=== PATIENT | male | born 1945 | race Caucasian/White ===

== ENCOUNTER 2019-06-23 15:38 | Inpatient (IN) | payer MEDICARE, BC ==
[2019-06-23] MEDS ORDERED: SODIUM CHLORIDE 0.9% 1,000 ML IV STA (15:51)
[2019-06-23] MEDS ORDERED: VANCOMYCIN 1,500 MG in SODIUM CHLORIDE 0.9% 250 ML IVPB STA (16:02)
[2019-06-23] MEDS ORDERED: CEFEPIME 1 GM in SODIUM CHLORIDE 0.9% 50 ML IVPB STA (16:02)
[2019-06-23] MEDS ORDERED: ACETAMINOPHEN TAB 500 MG TAB PO STA (16:02)
--- NOTE | 2019-06-23 16:13 | ED ---
Weakness HPI - General Chief complaint: Weakness Stated complaint: hard time staying awake Time Seen by Provider: 06/23/19 15:51 Source: patient, family Mode of arrival: wheelchair Limitations: no limitations - History of Present Illness Initial comments: Patient presents with generalized weakness. He has a fever and is tachycardic. He has no focal weakness. He has no nausea or vomiting. He feels a little lightheaded and has some generalized malaise. He denies any belly or back pain. He has swelling in the left leg. There is a complaint of redness to the leg as well. He feels warm to him. He has no vision or hearing changes. He has no he adache. He has no neck pain or stiffness. His symptoms have gone worse for couple days. Nothing makes the symptoms better or worse. - Related Data Allergies Allergy/AdvReac Type Severity Reaction Status Date / Time No Known Allergies Allergy Verified 06/23/19 17:07 Review of Systems ROS Statement: Those systems with pertinent positive or pertinent negative responses have been documented in the HPI. ROS Other: All systems not noted in ROS Statement are negative. Past Medical History Past Medical History: Heart Failure History of Any Multi-Drug Resistant Organisms: None Reported Past Surgical History: Heart Catheterization Additional Past Surgical History / Comment(s): heart transplant Past Psychological History: No Psychological Hx Reported Smoking Status: Never smoker Past Alcohol Use History: None Reported Past Drug Use History: None Reported General Exam Limitations: no limitations General appearance: alert, in no apparent distress Head exam: Present: atraumatic, normocephalic, normal inspection Eye exam: Present: normal appearance, PERRL, EOMI. Absent: scleral icterus, conjunctival injection, periorbital swelling ENT exam: Present: normal exam, mucous membranes moist Neck exam: Present: normal inspection. Absent: tenderness, meningismus, lymphadenopathy Respiratory exam: Present: normal lung sounds bilaterally. Absent: respiratory distress, wheezes, rales, rhonchi, stridor Cardiovascular Exam: Present: regular rate, normal rhythm, normal heart sounds. Absent: systolic murmur, diastolic murmur, rubs, gallop, clicks GI/Abdominal exam: Present: soft, normal bowel sounds. Absent: distended, ten derness, guarding, rebound, rigid Extremities exam: Present: normal inspection, full ROM, tenderness, normal capillary refill, other (Right calf swelling and pain). Absent: pedal edema, joint swelling, calf tenderness Back exam: Present: normal inspection Neurological exam: Present: alert, oriented X3, CN II-XII intact Psychiatric exam: Present: normal affect, normal mood Skin exam: Present: warm, dry, intact, normal color, other (There is erythema of the left leg). 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 Representative ] Respiratory 13 10 L Rate Blood Pressure 119/74 122/72 O2 Sat by Pulse Oximetry 06/23/19 06/23/19 06/23/19 17:30 17:40 17:48 Temperature 102.7 F H Pulse Rate 112 H 112 H Pulse Rate [ [employer]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 Medical Decision Making - Medical Decision Making Patient presents with weakness. He has fever and tachycardia. He does have some erythema on the left leg which could be a cellulitis. He has no other source of bacteremia, but given that he is on antirejection medication he has a high risk of bacteremia. I ordered broad-spectrum antibiotics. Patient will be admitted to the hospital. - Lab Data Result diagrams: 06/23/19 16:02 06/23/19 16:02 Lab Results 06/23/19 06/23/19 06/23/19 Range/Units 16:02 16:02 16:02 WBC 9.4 (3.8-10.6) k/uL RBC 3.72 L (4.30-5.90) m/uL Hgb 12.5 L (13.0-17.5) gm/dL Hct 35.9 L (39.0-53.0) % MCV 96.6 (80.0-100.0) fL MCH 33.6 (25.0-35.0) pg MCHC 34.8 (31.0-37.0) g/dL RDW 14.5 (11.5-15.5) % Plt Count 81 L (150-450) k/uL Neutrophils % 81 % Lymphocytes % 14 % Monocytes % 4 % Eosinophils % 1 % Basophils % 0 % Neutrophils # 7.6 (1.3-7.7) k/uL Lymphocytes # 1.3 (1.0-4.8) k/uL Monocytes # 0.3 (0-1.0) k/uL Eosinophils # 0.1 (0-0.7) k/uL Basophils # 0.0 (0-0.2) k/uL Manual Slide Review Performed RBC Morphology Normal PT (9.0-12.0) sec INR (<1.2) APTT (22.0-30.0) sec Sodium 139 (137-145) mmol/L Potassium 3.8 (3.5-5.1) mmol/L Chloride 104 (98-107) mmol/L Carbon Dioxide 26 (22-30) mmol/L Anion Gap 9 mmol/L BUN 38 H (9-20) mg/dL Creatinine 1.18 (0.66-1.25) mg/dL Est GFR (CKD-EPI)AfAm 71 (>60 ml/min/1.73 sqM) Est GFR (CKD-EPI)NonAf 61 (>60 ml/min/1.73 sqM) Glucose 105 H (74-99) mg/dL Plasma Lactic Acid Jonh 1.7 (0.7-2.0) mmol/L Calcium 9.2 (8.4-10.2) mg/dL Magnesium 1.5 L (1.6-2.3) mg/dL Total Bilirubin 1.5 H (0.2-1.3) mg/dL AST 26 (17-59) U/L ALT 23 (21-72) U/L Alkaline Phosphatase 69 (38-126) U/L Troponin I (0.000-0.034) ng/mL NT-Pro-B Natriuret Pep pg/mL Total Protein 6.4 (6.3-8.2) g/dL Albumin 3.7 (3.5-5.0) g/dL Urine Color Urine Appearance (Clear) Urine pH (5.0-8.0) Ur Specific [place] (1.001-1.035) Urine Protein (Negative) Urine Glucose (UA) (Negative) Urine Ketones (Negative) Urine Blood (Negative) Urine Nitrite (Negative) Urine Bilirubin (Negative) Urine Urobilinogen (<2.0) mg/dL Ur Leukocyte Esterase (Negative) 06/23/19 06/23/19 06/23/19 Range/Units 16:02 16:02 16:02 WBC (3.8-10.6) k/uL RBC (4.30-5.90) m/uL Hgb (13.0-17.5) gm/dL Hct (39.0-53.0) % MCV (80.0-100.0) fL MCH (25.0-35.0) pg MCHC (31.0-37.0) g/dL RDW (11.5-15.5) % Plt Count (150-450) k/uL Neutrophils % % Lymphocytes % % Monocytes % % Eosinophils % % Basophils % % Neutrophils # (1.3-7.7) k/uL Lymphocytes # (1.0-4.8) k/uL Monocytes # (0-1.0) k/uL Eosinophils # (0-0.7) k/uL Basophils # (0-0.2) k/uL Manual Slide Review RBC Morphology PT 10.8 (9.0-12.0) sec INR 1.0 (<1.2) APTT 23.8 (22.0-30.0) sec Sodium (137-145) mmol/L Potassium (3.5-5.1) mmol/L Chloride (98-107) mmol/L Carbon Dioxide (22-30) mmol/L Anion Gap mmol/L BUN (9-20) mg/dL Creatinine (0.66-1.25) mg/dL Est GFR (CKD-EPI)AfAm (>60 ml/min/1.73 sqM) Est GFR (CKD-EPI)NonAf (>60 ml/min/1.73 sqM) Glucose (74-99) mg/dL Plasma Lactic Acid Jonh (0.7-2.0) mmol/L Calcium (8.4-10.2) mg/dL Magnesium (1.6-2.3) mg/dL Total Bilirubin (0.2-1.3) mg/dL AST (17-59) U/L ALT (21-72) U/L Alkaline Phosphatase (38-126) U/L Troponin I <0.012 (0.000-0.034) ng/mL NT-Pro-B Natriuret Pep 1130 pg/mL Total Protein (6.3-8.2) g/dL Albumin (3.5-5.0) g/dL Urine Color Urine Appearance (Clear) Urine pH (5.0-8.0) Ur Specific [place] (1.001-1.035) Urine Protein (Negative) Urine Glucose (UA) (Negative) Urine Ketones (Negative) Urine Blood (Negative) Urine Nitrite (Negative) Urine Bilirubin (Negative) Urine Urobilinogen (<2.0) mg/dL Ur Leukocyte Esterase (Negative) 06/23/19 Range/Units 17:10 WBC (3.8-10.6) k/uL RBC (4.30-5.90) m/uL Hgb (13.0-17.5) gm/dL Hct (39.0-53.0) % MCV (80.0-100.0) fL MCH (25.0-35.0) pg MCHC (31.0-37.0) g/dL RDW (11.5-15.5) % Plt Count (150-450) k/uL Neutrophils % % Lymphocytes % % Monocytes % % Eosinophils % % Basophils % % Neutrophils # (1.3-7.7) k/uL Lymphocytes # (1.0-4.8) k/uL Monocytes # (0-1.0) k/uL Eosinophils # (0-0.7) k/uL Basophils # (0-0.2) k/uL Manual Slide Review RBC Morphology PT (9.0-12.0) sec INR (<1.2) APTT (22.0-30.0) sec Sodium (137-145) mmol/L Potassium (3.5-5.1) mmol/L Chloride (98-107) mmol/L Carbon Dioxide (22-30) mmol/L Anion Gap mmol/L BUN (9-20) mg/dL Creatinine (0.66-1.25) mg/dL Est GFR (CKD-EPI)AfAm (>60 ml/min/1.73 sqM) Est GFR (CKD-EPI)NonAf (>60 ml/min/1.73 sqM) Glucose (74-99) mg/dL Plasma Lactic Acid Jonh (0.7-2.0) mmol/L Calcium (8.4-10.2) mg/dL Magnesium (1.6-2.3) mg/dL Total Bilirubin (0.2-1.3) mg/dL AST (17-59) U/L ALT (21-72) U/L Alkaline Phosphatase (38-126) U/L Troponin I (0.000-0.034) ng/mL NT-Pro-B Natriuret Pep pg/mL Total Protein (6.3-8.2) g/dL Albumin (3.5-5.0) g/dL Urine Color Yellow Urine Appearance Clear (Clear) Urine pH 8.5 H (5.0-8.0) Ur Specific [place] 1.013 (1.001-1.035) Urine Protein Negative (Negative) Urine Glucose (UA) Negative (Negative) Urine Ketones Negative (Negative) Urine Blood Negative (Negative) Urine Nitrite Negative (Negative) Urine Bilirubin Negative (Negative) Urine Urobilinogen <2.0 (<2.0) mg/dL Ur Leukocyte Esterase Negative (Negative) Disposition Clinical Impression: Bacteremia Disposition: ADMITTED IP TO THIS [facility] Condition: Serious Is patient prescribed a controlled substance at d/c from ED?: No Referrals: None,Stated [Primary Care Provider] - 1-2 days
[2019-06-23 16:26] LABS: Basophils % (A) 0 %; Eosinophils # (A) 0.1 k/uL (0-0.7); Eosinophils % (A) 1 %; HCT 35.9 % (39.0-53.0); HGB 12.5 gm/dL (13.0-17.5); Lymphocytes # (A) 1.3 k/uL (1.0-4.8); Lymphocytes % (A) 14 %; MCH 33.6 pg (25.0-35.0); MCHC 34.8 g/dL (31.0-37.0); MCV 96.6 fL (80.0-100.0); Mean Platelet Volume 7.6; Monocytes # (A) 0.3 k/uL (0-1.0); Monocytes % (A) 4 %; Neutrophils # (A) 7.6 k/uL (1.3-7.7); Neutrophils % (A) 81 %; RBC 3.72 m/uL (4.30-5.90); RDW 14.5 % (11.5-15.5); WBC 9.4 k/uL (3.8-10.6)
[2019-06-23 16:33] LABS: Albumin 3.7 g/dL (3.5-5.0); Calcium 9.2 mg/dL (8.4-10.2); Magnesium 1.5 mg/dL (1.6-2.3); Potassium 3.8 mmol/L (3.5-5.1); Total Bilirubin 1.5 mg/dL (0.2-1.3); Total Protein 6.4 g/dL (6.3-8.2)
[2019-06-23 16:42] LABS: Partial Thromboplastin Time 23.8 sec (22.0-30.0); Prothrombin Time 10.8 sec (9.0-12.0)
[2019-06-23 16:50] LABS: Platelet Count 81 k/uL (150-450)
--- NOTE | 2019-06-23 17:15 | US ---
EXAMINATION TYPE: US venous doppler duplex LE LT DATE OF EXAM: 06/23/2019 5:06 PM COMPARISON: NONE CLINICAL HISTORY: Pain. Left leg pain and redness SIDE PERFORMED: Left TECHNIQUE: The lower extremity deep venous system is examined utilizing real time linear array sonog viri with graded compression, doppler sonography and color-flow sonography. VESSELS IMAGED: External Iliac Vein (EIV) Common Femoral Vein Deep Femoral Vein Greater Saphenous Vein * Femoral Vein Popliteal Vein Small Saphenous Vein * Proximal Calf Veins (* superficial vessels) Left Leg: Positive for DVT within left popliteal vein IMPRESSION: No evidence of deep venous thrombosis in the left leg.
[2019-06-23 17:20] LABS: Appearance,Urine Clear (Clear); Bilirubin,Urine Negative (Negative); Blood,Urine Negative (Negative); Color,Urine Yellow; Glucose,Urine (UA) Negative (Negative); Ketones,Urine Negative (Negative); Leukocyte Esterase,Urine Negative (Negative); Nitrite,Urine Negative (Negative); PH, Urine 8.5 (5.0-8.0); Protein,Urine Negative (Negative); Specific Gravity,Urine 1.013 (1.001-1.035); Urobilinogen,Urine <2.0 mg/dL (<2.0)
--- NOTE | 2019-06-23 18:12 | CT ---
EXAMINATION TYPE: CT brain wo con DATE OF EXAM: 06/23/2019 COMPARISON: None HISTORY: Generalized pain and weakness, difficulty staying awake. CT DLP: 1099.4 mGycm Automated exposure control for dose reduction was used. FINDINGS: Ventricles and sulci appear normal. There is no mass effect nor midline shift. There is no sign of in tracranial hemorrhage. The calvarium is intact. IMPRESSION: HEAD CT SCAN APPEARS NORMAL FOR AGE.
--- NOTE | 2019-06-23 18:16 | XR ---
EXAMINATION TYPE: XR chest 2V DATE OF EXAM: 06/23/2019 COMPARISON: NONE HISTORY: Weakness TECHNIQUE: Frontal and lateral views of the chest are obtained. FINDINGS: There is some mild atelectasis left lung base with slight elevated diaphragm. There is no heart failure. There are no hilar masses. There are sternal wires. There are chest leads. There is no definite pleural effusion. IMPRESSION: Minimal atelectasis left lung base. No heart failure. No pulmonary consolidation.
[2019-06-23] MEDS ORDERED: SODIUM CHLORIDE 0.9% 1,000 ML IV ONE (18:44)
[2019-06-23] MEDS ORDERED: NALOXONE 0.4 MG/ML 1 ML VIAL IV PRN (19:05)
[2019-06-23] MEDS ORDERED: ONDANSETRON 4 MG/2 ML VIAL IVP PRN (19:05)
[2019-06-23] MEDS ORDERED: MAG HYDROX/AL HYDROX/SIMETH 30 ML CUP PO PRN (19:05)
[2019-06-23] MEDS ORDERED: DOCUSATE 100 MG CAP PO PRN (19:05)
[2019-06-23] MEDS ORDERED: TEMAZEPAM 15 MG CAP PO PRN (19:05)
[2019-06-23] MEDS ORDERED: SODIUM CHLORIDE 0.9% 500 ML 500 ML IV ONE (19:37)
[2019-06-23] MEDS ORDERED: TRIAMCINOLONE ACET 0.1% OINTMENT 15 GM TUBE TOPICAL PRN (20:50)
[2019-06-23] MEDS ORDERED: Potassium Replacement Protocol 1 EACH MISC MISCELLANE PRN (20:54)
[2019-06-23] MEDS ORDERED: Magnesium Replacement Protocol 1 EACH MISC MISCELLANE PRN (20:54)
[2019-06-23] MEDS ORDERED: TACROLIMUS 1 MG CAP PO SCH (21:00)
[2019-06-23] MEDS ORDERED: PRAVASTATIN SODIUM 20 MG TAB PO SCH (21:00)
[2019-06-23 22:03] VITALS: BMI 25.7
[2019-06-23] MEDS: VITAMIN E (DL,TOCOPHERYL ACET) 400 UNIT CAP PO SCH (22:17)
[2019-06-23] MEDS: ASCORBIC ACID 500 MG TAB PO SCH (22:17)
[2019-06-23] MEDS: CALCIUM CARB-VIT D 500MG-200UN 1 EACH TAB PO SCH (22:18)
[2019-06-23] MEDS: FAMOTIDINE 20 MG TAB PO SCH (22:18)
[2019-06-23] MEDS: CARVEDILOL 3.125 MG TAB PO SCH (22:19)
[2019-06-23] MEDS: FLUOROURACIL TOPICAL SCH (22:19)
[2019-06-24] MEDS ORDERED: ACETAMINOPHEN TAB 325 MG TAB PO PRN (00:07)
[2019-06-24] MEDS: MAGNESIUM SULFATE-D5W PMX 1 GM in DEXTROSE/WATER 1 100ML.BAG IVPB SCH ×2 (02:11→03:19)
[2019-06-24 04:39] LABS: Magnesium 2.3 mg/dL (1.6-2.3)
[2019-06-24] MEDS ORDERED: VANCOMYCIN 1,500 MG in SODIUM CHLORIDE 0.9% 250 ML IVPB SCH ×2 (06:00→10:00)
[2019-06-24] MEDS: CARVEDILOL 3.125 MG TAB PO SCH ×2 (06:58→16:14)
[2019-06-24] MEDS ORDERED: PANTOPRAZOLE 40 MG TABLET PO SCH (07:30)
[2019-06-24] MEDS: ASCORBIC ACID 500 MG TAB PO SCH (08:30)
[2019-06-24] MEDS: CALCIUM CARB-VIT D 500MG-200UN 1 EACH TAB PO SCH ×2 (08:30→12:06)
[2019-06-24] MEDS: FAMOTIDINE 20 MG TAB PO SCH (08:30)
[2019-06-24] MEDS: VITAMIN E (DL,TOCOPHERYL ACET) 400 UNIT CAP PO SCH (08:30)
[2019-06-24] MEDS: FLUOROURACIL TOPICAL SCH (08:31)
[2019-06-24 08:43] VITALS: RESP 20
[2019-06-24] MEDS ORDERED: MULTIVITAMINS, THERA 1 EACH TAB PO SCH (09:00)
[2019-06-24] MEDS ORDERED: ASPIRIN 81 MG PO SCH (09:00)
[2019-06-24] MEDS ORDERED: MAGNESIUM OXIDE 400 MG TAB PO SCH (09:00)
[2019-06-24] MEDS ORDERED: FUROSEMIDE 80 MG TAB PO SCH (09:00)
[2019-06-24] MEDS ORDERED: predniSONE 5 MG TAB PO SCH (09:00)
[2019-06-24] MEDS ORDERED: TACROLIMUS 1 MG CAP PO SCH (09:00)
[2019-06-24] MEDS ORDERED: HEPARIN SODIUM,PORCINE 5,000 UNIT/ML 1 ML VIAL IV PRN (10:39)
[2019-06-24] MEDS ORDERED: HEPARIN SODIUM,PORCINE 10,000 UNIT/ML 1 ML VIAL IV ONE (10:39)
[2019-06-24] MEDS ORDERED: HEPARIN SOD,PORK IN 0.45% NACL 25,000 UNIT in 0.45% NACL 1 250ML.BAG IV SCH (10:45)
[2019-06-24 11:29] LABS: Basophils % (A) 0 %; Eosinophils # (A) 0.1 k/uL (0-0.7); Eosinophils % (A) 1 %; HCT 34.7 % (39.0-53.0); HGB 11.9 gm/dL (13.0-17.5); Lymphocytes # (A) 0.9 k/uL (1.0-4.8); Lymphocytes % (A) 9 %; MCH 34.1 pg (25.0-35.0); MCHC 34.3 g/dL (31.0-37.0); MCV 99.3 fL (80.0-100.0); Mean Platelet Volume 7.4; Monocytes # (A) 0.4 k/uL (0-1.0); Monocytes % (A) 4 %; Neutrophils # (A) 8.4 k/uL (1.3-7.7); Neutrophils % (A) 85 %; RBC 3.49 m/uL (4.30-5.90); RDW 14.3 % (11.5-15.5); WBC 9.8 k/uL (3.8-10.6)
[2019-06-24 11:36] LABS: INR 1.2 (<1.2); Partial Thromboplastin Time 30.6 sec (22.0-30.0); Prothrombin Time 12.1 sec (9.0-12.0)
[2019-06-24 11:47] LABS: Platelet Count 71 k/uL (150-450)
--- NOTE | 2019-06-24 11:55 | HP ---
HISTORY AND PHYSICAL DATE OF SERVICE: 06/24/2019 CHIEF COMPLAINT: Weakness. HISTORY OF PRESENT ILLNESS: This is a 73-year-old gentleman with a past medical history of cardiac transplantation, history of CHF, history of cardiac catheterization, being followed by primary physician. 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 Bacteremia suspected. Patient started on broad spectrum IV antibiotics. The patient also had some pain and swelling and redness of the left leg also. Ultrasound showed evidence of DVT, cellulitis also suspected. The patient apparently recently had a cardiac catheterization through a right groin units on 06/21/2019. Results are not available at this time. There is no history of any fever, chills, or rigors. No history of headaches, loss of consciousness or seizures. PAST MEDICAL HISTORY: History of cardiac arrest and cardiac transplantation, history of CHF. MEDICATIONS: Prior to admission, home medications are: 1. Prednisone 5 mg p.o. daily. 2. Vitamin E 400 units daily p.o. b.i.d. 3. Prograf 2 mg q.a.m. and 1 mg q.h.s. 4. Zantac 150 mg p.o. b.i.d. 5. Pravachol 20 mg q.h.s. 6. Omeprazole 20 mg p.o. daily. 7. Multivitamins. 8. Magnesium oxide 20 mg q.a.m. and 400 mg p.o. b.i.d. 9. Hydrocortisone 1 application daily p.r.n. 10.Lasix 80 mg p.o. daily. 11.Efudex 1 application b.i.d. 12.Coreg 3.125 mg p.o. b.i.d. 13.Calcium with vitamin D 1 p.o. t.i.d. 14.Ecotrin 81 mg p.o. daily. 15.Vitamin C 500 mg p.o. b.i.d. ALLERGIES: None. FAMILY HISTORY: History of CHF, renal disease in the family. SOCIAL HISTORY: Previous history of smoking. No history of alcohol. REVIEW OF SYSTEMS: ENT: No diminished hearing or diminished vision. CARDIOVASCULAR: As mentioned earlier. RESPIRATORY: As mentioned earlier. GI; No nausea. : No dysuria. NERVOUS SYSTEM: As mentioned earlier. ALLERGY/IMMUNOLOGY: Asthma. MUSCULOSKELETAL: As mentioned earlier. HEMATOLOGY/ONCOLOGY: No history of anemia. ENDOCRINE: As mentioned earlier. CONSTITUTIONAL: As mentioned earlier. DERMATOLOGY: Negative. PSYCHIATRY: As mentioned earlier. PHYSICAL EXAMINATION: Alert and oriented x3. Pulse is 89. Blood pressure 98/53, respiration 17, temperature 99.8, T-max 101.1, pulse ox 97% on room air. HEENT: Conjunctivae normal. Oral mucosa moist. NECK: No jugular venous distention. No lymph node enlargement. CARDIOVASCULAR SYSTEM: S1, S2, muffled. No S3, no S4. RESPIRATORY: Breath sounds diminished in the bases, no rhonchi, no crackles. ABDOMEN: Soft, nontender. No mass palpable. LEGS: Minimal edema on the left leg with some erythema tenderness and warmth also present, otherwise right groin site is no abnormal swelling present, tenderness present. NERVOUS SYSTEM: Higher functions as mentioned earlier. Moves all 4 limbs, no focal deficits. LYMPHATICS: No lymph node enlargement in the neck or axillae. JOINTS: No active deformity or arthropathy. SKIN: As mentioned earlier. LABS: WBC is 9.3, hemoglobin is 12.5, platelets are 81. Otherwise glucose 105, magnesium 1.5. Ultrasound reviewed. ASSESSMENT: 1. Fever, weakness for evaluation, rule out sepsis, possibly acute cellulitis of the right leg. 2. Acute right leg deep venous thrombosis of the popliteal vein. 3. Anemia, normocytic anemia of chronic disease. 4. Thrombocytopenia, secondary from immunosuppression. 5. Increased creatinine with mild acute renal failure. 6. History of cardiac transplantation. 7. History of recent cardiac cauterization. 8. History of congestive heart failure with ejection fraction unknown. RECOMMENDATION: In this 73-year-old gentleman who presented with multiple complex medical issues, at this time I would recommend resume the home medications, broad-spectrum IV antibiotics, Infectious Disease evaluation. Cardiology and Nephrology evaluations. Otherwise, follow the cultures. Prognosis guarded because of multiple complex medical issues, and I would also recommend the patient to follow up with the [facility], discussed with the director of casework department. We will try for transfer to [facility] because of the above mentioned multiple complex medical issues. The patient is aware. Further recommendations to follow. MMODL / IJN: [id number] /
[2019-06-24] MEDS: MAGNESIUM OXIDE 400 MG TAB PO SCH ×2 (12:06→16:14)
[2019-06-24] MEDS ORDERED: SODIUM CHLORIDE 0.9% 1,000 ML IV SCH (12:30)
--- NOTE | 2019-06-24 14:08 | US ---
EXAMINATION TYPE: US kidneys/renal and bladder DATE OF EXAM: 06/24/2019 COMPARISON: NONE CLINICAL HISTORY: renal failure. Patient stated had heart transplant 8 years ago and is taking immuno suppressant drugs EXAM MEASUREMENTS: Right Kidney: 11.7 x 5.9 x 4.7 cm Left Kidney: 11.0 x 6.0 x 5.4 cm Right Kidney: irregular appearance to renal sinus as extends to very thin cortex mid pole, and lobula r cortex noted upper pole Left Kidney: prominent column of Juancarlos Bladder: wnl Bilateral Jets seen: yes Normal Post Void Residual: not assessed on inpatient There is no evidence for hydronephrosis at this point in time. No nephrolithiasis is seen. The urina ry bladder is anechoic. Bilateral ureteral jets are seen. IMPRESSION: No hydronephrosis is evident bilaterally. Cannot exclude solid mass right kidney though f avor marked cortical thinning, consider nonurgent renal protocol contrast-enhanced CT/MRI follow-up.
--- NOTE | 2019-06-24 14:55 | CONS ---
CONSULTATION REASON FOR CONSULT: Renal failure. HISTORY OF PRESENT ILLNESS: The patient is a 73-year-old male with history of cardiac transplant in 2010 at [facility]. The patient was admitted to the hospital with complaints of pain and erythema on his left leg. He was also quite weak and sleepy prior to admission. The patient denies any history of renal failure. He is currently maintained on vancomycin for cellulitis. His creatinine was 1.18 yesterday and it is at 1.38 today. Patient states he is voiding. There were no episodes of hypotension. He denies use of any nonsteroidal anti-inflammatory agents. There are plans for possible transfer to [facility]. PAST MEDICAL HISTORY: CHF, status post cardiac transplantation 2010 at [facility], dyslipidemia, gastroesophageal reflux disease. MEDICATIONS: Prior to admission included prednisone, vitamin E program, Zantac, Pravachol, omeprazole, magnesium, Lasix, Coreg, calcium, aspirin, vitamin C. ALLERGIES: None. SOCIAL HISTORY: The patient is a former smoker. No history of drug abuse or alcohol abuse. FAMILY HISTORY: Noncontributory. REVIEW OF SYSTEMS: As per HPI. Other systems negative. PHYSICAL EXAMINATION: Patient is comfortable. Blood pressure is 117/46, heart rate 81 per minute. He is afebrile. Examination of the heart S1, S2. Examination of the lungs, bilateral breath sounds are heard. Abdomen is soft, nontender. Exam of the lower extremities shows erythema in his left lower extremity with some edema noted as well. [employer] exam is grossly intact. LABS: Show sodium 139, potassium 3.8, chloride 104, serum creatinine 1.38 today. UA is completely normal with no evidence of protein, blood, or cells. ASSESSMENT: 1. Acute kidney injury secondary to some degree of hypoperfusion and underlying infection. Patient is nonoliguric. His blood pressure was not low initially, but now I do see is systolic of 98 mmHg early this morning. The Coreg is at a very low dose. I will hold off on the Lasix and we will add gentle hydration. Chest x-ray does not show any evidence of fluid overload. We will also check a Prograf level with a.m. labs. 2. Left lower extremity deep venous thrombosis, maintained on IV heparin. 3. Left lower extremity cellulitis, maintained on antibiotics. Recommend to discontinue vancomycin. 4. History of cardiac transplant 2010 at [facility]. PLAN: Add IV fluids. Hold off on Lasix. Recommend to discontinue the vancomycin and repeat labs in a.m. Check ultrasound of the kidneys and hold Lasix. Avoid hypotension and check Prograf level in a.m. Thank you for this consultation. We will continue to follow the patient with you during his hospitalization. MMSHAHRIARL / ELSIEN: [id number] /
--- NOTE | 2019-06-24 15:32 | NM ---
EXAMINATION TYPE: NM pul perfusion DATE OF EXAM: 06/24/2019 COMPARISON: Chest x-ray from yesterday. HISTORY: Positive d-dimer with weakness, history of heart catheterization 3 days earlier Following administration of 5.38 mCi Tc 99m MAA. Images obtained post injection. FINDINGS: Patient unable to complete the ventilation images for complete assessment. Diminished radiotracer upt nirali left lung base correlates with elevated left hemidiaphragm. Small to moderate-sized areas of hete rogeneous diminished uptake posterior left mid to lower lung on LPO and left lateral images are ident ified. Without ventilation images further characterization cannot be assessed. IMPRESSION: As above. Indeterminate.
[2019-06-24 16:54] VITALS: BP 136/76; PULSE 86; TEMP 98.2
[2019-06-25] MEDS ORDERED: VANCOMYCIN TROUGH DUE 1 EACH MISC MISCELLANE ONE (21:00)
== END 2019-06-24 18:30 | disposition short-term general hospital (02) | DRG 300 ==
LOC: EC 15:38 → 3SCARD 19:05
PROVIDERS: ADMIT Internal Medicine; ATTEND Internal Medicine
DX: I82.439 Acute embolism and thrombosis of unspecified popliteal vein (principal); N17.9 Acute kidney failure, unspecified; L03.116 Cellulitis of left lower limb; Z94.1 Heart transplant status; E78.5 Hyperlipidemia, unspecified; D69.6 Thrombocytopenia, unspecified; D63.8 Anemia in other chronic diseases classified elsewhere; K21.9 Gastro-esophageal reflux disease without esophagitis; Z82.49 Family history of ischemic heart disease and other diseases of the circulatory system; Z87.891 Personal history of nicotine dependence; Z86.74 Personal history of sudden cardiac arrest
CPT/HCPCS: 36415; 70450; 71046; 76770; 78580; 80053; 80202; 81003; 82565; 83605; 83735; 83880; 84484; 85025; 85379; 85610; 85730; 87040; 93005; 96361; 96365; 99285

== ENCOUNTER 2022-03-06 16:35 | Observation (INO) | payer BC, MEDICARE ==
[2022-03-06] MEDS ORDERED: ACETAMINOPHEN TAB 500 MG TAB PO STA (17:05)
--- NOTE | 2022-03-06 17:41 | ED ---
General Adult HPI - General Chief complaint: Weakness Stated complaint: AMS,Weakness Time Seen by Provider: 03/06/22 17:05 Source: patient Mode of arrival: wheelchair Limitations: no limitations - History of Present Illness Initial comments: Garry is a 76-year-old male who is status post cardiac transplant in 2010. Patient presents the ER today reporting that he just doesn't feel well, is noted to have a fever on arrival. Patient reports she just feels generalized weakness, get out of bed today. - Related Data Home Medications Medication Instructions Recorded Confirmed Ascorbic Acid [Vitamin C] 500 mg PO BID 06/23/19 03/06/22 Aspirin EC [Ecotrin Low Dose] 81 mg PO DAILY 06/23/19 03/06/22 Furosemide [Lasix] 40 mg PO DAILY 06/23/19 03/06/22 Multivitamins, Thera [Multivitamin 1 tab PO DAILY 06/23/19 03/06/22 (formulary)] Omeprazole 20 mg PO DAILY 06/23/19 03/06/22 Pravastatin Sodium [Pravachol] 20 mg PO HS 06/23/19 03/06/22 Tacrolimus [Prograf] 1 mg PO BID 06/23/19 03/06/22 Vitamin E (Dl,Tocopheryl Acet) 400 unit PO BID 06/23/19 03/06/22 [Vitamin E] predniSONE 5 mg PO DAILY 06/23/19 03/06/22 Apixaban [Eliquis] 5 mg PO BID 03/06/22 03/06/22 Potassium Chloride [Potassium 10 meq PO DAILY 03/06/22 03/06/22 Chloride ER] carvediloL [Coreg] 6.25 mg PO BID 03/06/22 03/06/22 Allergies Allergy/AdvReac Type Severity Reaction Status Date / Time No Known Allergies Allergy Verified 03/06/22 20:00 Review of Systems ROS Statement: Those systems with pertinent positive or pertinent negative responses have been documented in the HPI. ROS Other: All systems not noted in ROS Statement are negative. Past Medical History Past Medical History: Heart Failure History of Any Multi-Drug Resistant Organisms: None Reported Past Surgical History: Heart Catheterization Additional Past Surgical History / Comment(s): heart transplant 2010. Heart Catheterization 9-6-19 [facility] Past Psychological History: No Psychological Hx Reported Smoking Status: Never smoker Past Alcohol Use History: None Reported Past Drug Use History: None Reported - Past Family History Father Family Medical History: Congestive Heart Failure (CHF), Renal Disease Mother Family Medical History: Unable to Obtain General Exam - General Exam Comments Initial Comments: Physical Exam GENERAL: Ill appearing HENT: Normocephalic, Atraumatic. EYES: PERRL, EOMI PULMONARY: Unlabored respirations. No audible rales rhonchi or wheezing was noted. CARDIOVASCULAR: There is a regular rate and rhythm without any murmurs gallops or rubs. ABDOMEN: Soft and nontender with normal bowel sounds. SKIN: Skin is clear with no lesions or rashes and otherwise unremarkable. Clammy : Deferred NEUROLOGIC: Patient is alert and oriented x3. Moving all extremities spontaneously MUSCULOSKELETAL: Normal extremities with adequate strength and full range of motion. No lower extremity swelling or edema. No calf tenderness. PSYCHIATRIC: Normal psychiatric evaluation. Limitations: no limitations Course Vital Signs 03/06/22 03/06/22 03/06/22 16:52 17:38 18:00 Temperature 100.9 F H 102.6 F H Pulse Rate 98 97 95 Respiratory 16 20 Rate Blood Pressure 118/75 126/77 126/77 O2 Sat by Pulse 96 95 Oximetry 03/06/22 03/06/22 19:00 20:00 Temperature Pulse Rate 89 82 Respiratory Rate Blood Pressure 89/62 102/53 O2 Sat by Pulse Oximetry Medical Decision Making - Medical Decision Making The patient was seen and evaluated history is obtained from patient, vital signs were reviewed patient is febrile A septic workup was initiated and resulted with no acute findings is no leukocytosis, no lactic acidosis, kidney function and baseline Chest x-ray is unremarkable Viral panel was negative Patient care was discussed with the patient's transplant air conditioning unit tester from [facility] Dr. Arvizu, who recommended the patient have CMV studie s, remain in the hospital until blood cultures are negative, if possible respiratory viral panel should be performed. He does not recommend empiric antibiotics due to risk of C. diff. The patient will need to be in the hospital until blood cultures are negative therefore warranting a 48 hour stay and will be made inpatient. Patient care was discussed with the nurse practitioner Smita from [facility] hospitalist group who accepts the admission - Lab Data Result diagrams: 03/06/22 17:13 03/06/22 17:13 Lab Results 03/06/22 03/06/2222 Range/Units 15:35 17:13 17:13 WBC 3.9 (3.8-10.6) k/uL RBC 3.38 L (4.30-5.90) m/uL Hgb 11.8 L (13.0-17.5) gm/dL Hct 33.3 L (39.0-53.0) % MCV 98.7 (80.0-100.0) fL MCH 35.0 (25.0-35.0) pg MCHC 35.5 (31.0-37.0) g/dL RDW 13.4 (11.5-15.5) % Plt Count 81 L (150-450) k/uL MPV 7.4 Neutrophils % 53 % Lymphocytes % 37 % Monocytes % 6 % Eosinophils % 2 % Basophils % 0 % Neutrophils # 2.0 (1.3-7.7) k/uL Lymphocytes # 1.4 (1.0-4.8) k/uL Monocytes # 0.3 (0-1.0) k/uL Eosinophils # 0.1 (0-0.7) k/uL Basophils # 0.0 (0-0.2) k/uL Manual Slide Review Performed PT 11.5 (9.0-12.0) sec INR 1.1 (<1.2) APTT 26.8 (22.0-30.0) sec Sodium (137-145) mmol/L Potassium (3.5-5.1) mmol/L Chloride (98-107) mmol/L Carbon Dioxide (22-30) mmol/L Anion Gap mmol/L BUN (9-20) mg/dL Creatinine (0.66-1.25) mg/dL Est GFR (CKD-EPI)AfAm (>60 ml/min/1.73 sqM) Est GFR (CKD-EPI)NonAf (>60 ml/min/1.73 sqM) Glucose (74-99) mg/dL Plasma Lactic Acid Jonh (0.7-2.0) mmol/L Calcium (8.4-10.2) mg/dL Total Bilirubin (0.2-1.3) mg/dL AST (17-59) U/L ALT (4-49) U/L Alkaline Phosphatase (38-126) U/L Troponin I (0.000-0.034) ng/mL Total Protein (6.3-8.2) g/dL Albumin (3.5-5.0) g/dL Urine Color Urine Appearance (Clear) Urine pH (5.0-8.0) Ur Specific [place] (1.001-1.035) Urine Protein (Negative) Urine Glucose (UA) (Negative) Urine Ketones (Negative) Urine Blood (Negative) Urine Nitrite (Negative) Urine Bilirubin (Negative) Urine Urobilinogen (<2.0) mg/dL Ur Leukocyte Esterase (Negative) Influenza Type A (PCR) Not Detected (Not Detectd) Influenza Type B (PCR) Not Detected (Not Detectd) RSV (PCR) Not Detected (Not Detectd) SARS-CoV-2 (PCR) Not Detected (Not Detectd) 03/06/22 03/06/22 03/06/22 Range/Units 17:13 17:13 17:13 WBC (3.8-10.6) k/uL RBC (4.30-5.90) m/uL Hgb (13.0-17.5) gm/dL Hct (39.0-53.0) % MCV (80.0-100.0) fL MCH (25.0-35.0) pg MCHC (31.0-37.0) g/dL RDW (11.5-15.5) % Plt Count (150-450) k/uL MPV Neutrophils % % Lymphocytes % % Monocytes % % Eosinophils % % Basophils % % Neutrophils # (1.3-7.7) k/uL Lymphocytes # (1.0-4.8) k/uL Monocytes # (0-1.0) k/uL Eosinophils # (0-0.7) k/uL Basophils # (0-0.2) k/uL Manual Slide Review PT (9.0-12.0) sec INR (<1.2) APTT (22.0-30.0) sec Sodium 136 L (137-145) mmol/L Potassium 4.1 (3.5-5.1) mmol/L Chloride 106 (98-107) mmol/L Carbon Dioxide 28 (22-30) mmol/L Anion Gap 2 mmol/L BUN 30 H (9-20) mg/dL Creatinine 1.24 (0.66-1.25) mg/dL Est GFR (CKD-EPI)AfAm 66 (>60 ml/min/1.73 sqM) Est GFR (CKD-EPI)NonAf 57 (>60 ml/min/1.73 sqM) Glucose 111 H (74-99) mg/dL Plasma Lactic Acid Jonh 0.8 (0.7-2.0) mmol/L Calcium 9.0 (8.4-10.2) mg/dL Total Bilirubin 0.9 (0.2-1.3) mg/dL AST 23 (17-59) U/L ALT 15 (4-49) U/L Alkaline Phosphatase 70 (38-126) U/L Troponin I (0.000-0.034) ng/mL Total Protein 6.4 (6.3-8.2) g/dL Albumin 3.8 (3.5-5.0) g/dL Urine Color Yellow Urine Appearance Clear (Clear) Urine pH 8.0 (5.0-8.0) Ur Specific [place] 1.017 (1.001-1.035) Urine Protein Negative (Negative) Urine Glucose (UA) Negative (Negative) Urine Ketones Negative (Negative) Urine Blood Negative (Negative) Urine Nitrite Negative (Negative) Urine Bilirubin Negative (Negative) Urine Urobilinogen <2.0 (<2.0) mg/dL Ur Leukocyte Esterase Negative (Negative) Influenza Type A (PCR) (Not Detectd) Influenza Type B (PCR) (Not Detectd) RSV (PCR) (Not Detectd) SARS-CoV-2 (PCR) (Not Detectd) 03/06/22 Range/Units 17:13 WBC (3.8-10.6) k/uL RBC (4.30-5.90) m/uL Hgb (13.0-17.5) gm/dL Hct (39.0-53.0) % MCV (80.0-100.0) fL MCH (25.0-35.0) pg MCHC (31.0-37.0) g/dL RDW (11.5-15.5) % Plt Count (150-450) k/uL MPV Neutrophils % % Lymphocytes % % Monocytes % % Eosinophils % % Basophils % % Neutrophils # (1.3-7.7) k/uL Lymphocytes # (1.0-4.8) k/uL Monocytes # (0-1.0) k/uL Eosinophils # (0-0.7) k/uL Basophils # (0-0.2) k/uL Manual Slide Review PT (9.0-12.0) sec INR (<1.2) APTT (22.0-30.0) sec Sodium (137-145) mmol/L Potassium (3.5-5.1) mmol/L Chloride (98-107) mmol/L Carbon Dioxide (22-30) mmol/L Anion Gap mmol/L BUN (9-20) mg/dL Creatinine (0.66-1.25) mg/dL Est GFR (CKD-EPI)AfAm (>60 ml/min/1.73 sqM) Est GFR (CKD-EPI)NonAf (>60 ml/min/1.73 sqM) Glucose (74-99) mg/dL Plasma Lactic Acid Jonh (0.7-2.0) mmol/L Calcium (8.4-10.2) mg/dL Total Bilirubin (0.2-1.3) mg/dL AST (17-59) U/L ALT (4-49) U/L Alkaline Phosphatase (38-126) U/L Troponin I <0.012 (0.000-0.034) ng/mL Total Protein (6.3-8.2) g/dL Albumin (3.5-5.0) g/dL Urine Color Urine Appearance (Clear) Urine pH (5.0-8.0) Ur Specific [place] (1.001-1.035) Urine Protein (Negative) Urine Glucose (UA) (Negative) Urine Ketones (Negative) Urine Blood (Negative) Urine Nitrite (Negative) Urine Bilirubin (Negative) Urine Urobilinogen (<2.0) mg/dL Ur Leukocyte Esterase (Negative) Influenza Type A (PCR) (Not Detectd) Influenza Type B (PCR) (Not Detectd) RSV (PCR) (Not Detectd) SARS-CoV-2 (PCR) (Not Detectd) Disposition Clinical Impression: Fever of unknown origin, Immunocompromised, Status post heart transplant Disposition: ADMITTED IP TO THIS HOSP Condition: Serious Is patient prescribed a controlled substance at d/c from ED?: No Referrals: Nonstaff,Physician [Primary Care Provider] - 1-2 days
--- NOTE | 2022-03-06 18:05 | XR ---
EXAMINATION TYPE: XR chest 2V DATE OF EXAM: 03/06/2022 COMPARISON: 06/23/2019 HISTORY: Altered mental status and fever TECHNIQUE: Frontal and lateral views of the chest are obtained. FINDINGS: There is no focal air space opacity, pleural effusion, or pneumothorax seen. The cardiac silhouette size is within normal limits. Stable median sternotomy. The osseous structures are intact . IMPRESSION: No acute cardiopulmonary process.
[2022-03-06 18:17] LABS: Basophils % (A) 0 %; Eosinophils # (A) 0.1 k/uL (0-0.7); Eosinophils % (A) 2 %; HCT 33.3 % (39.0-53.0); HGB 11.8 gm/dL (13.0-17.5); Lymphocytes # (A) 1.4 k/uL (1.0-4.8); Lymphocytes % (A) 37 %; MCHC 35.5 g/dL (31.0-37.0); MCV 98.7 fL (80.0-100.0); Mean Platelet Volume 7.4; Monocytes # (A) 0.3 k/uL (0-1.0); Monocytes % (A) 6 %; Neutrophils % (A) 53 %; RBC 3.38 m/uL (4.30-5.90); RDW 13.4 % (11.5-15.5); WBC 3.9 k/uL (3.8-10.6)
[2022-03-06 18:20] LABS: INR 1.1 (<1.2); Partial Thromboplastin Time 26.8 sec (22.0-30.0); Prothrombin Time 11.5 sec (9.0-12.0)
[2022-03-06 18:22] LABS: Albumin 3.8 g/dL (3.5-5.0); Potassium 4.1 mmol/L (3.5-5.1); Total Bilirubin 0.9 mg/dL (0.2-1.3); Total Protein 6.4 g/dL (6.3-8.2)
[2022-03-06 18:40] LABS: Platelet Count 81 k/uL (150-450)
[2022-03-06 21:40] LABS: Appearance,Urine Clear (Clear); Bilirubin,Urine Negative (Negative); Blood,Urine Negative (Negative); Color,Urine Yellow; Glucose,Urine (UA) Negative (Negative); Ketones,Urine Negative (Negative); Leukocyte Esterase,Urine Negative (Negative); Nitrite,Urine Negative (Negative); Protein,Urine Negative (Negative); Specific Gravity,Urine 1.017 (1.001-1.035); Urobilinogen,Urine <2.0 mg/dL (<2.0)
[2022-03-06] MEDS ORDERED: NALOXONE 0.4 MG/ML 1 ML VIAL IV PRN (22:46)
[2022-03-07] MEDS: SODIUM CHLORIDE 0.9% 1,000 ML IV SCH ×3 (00:30→09:00)
[2022-03-07] MEDS ORDERED: PANTOPRAZOLE 40 MG/10 ML VIAL IVP SCH (10:15)
[2022-03-07 11:02] LABS: Basophils % (A) 1 %; Eosinophils # (A) 0.1 k/uL (0-0.7); Eosinophils % (A) 2 %; HCT 36.6 % (39.0-53.0); HGB 12.3 gm/dL (13.0-17.5); Lymphocytes # (A) 1.5 k/uL (1.0-4.8); Lymphocytes % (A) 34 %; MCH 33.9 pg (25.0-35.0); MCHC 33.6 g/dL (31.0-37.0); MCV 100.8 fL (80.0-100.0); Mean Platelet Volume 7.9; Monocytes # (A) 0.3 k/uL (0-1.0); Monocytes % (A) 8 %; Neutrophils # (A) 2.4 k/uL (1.3-7.7); Neutrophils % (A) 54 %; RBC 3.63 m/uL (4.30-5.90); RDW 12.7 % (11.5-15.5); WBC 4.5 k/uL (3.8-10.6)
[2022-03-07] MEDS: predniSONE 5 MG TAB PO SCH (11:05)
[2022-03-07] MEDS: APIXABAN 5 MG TAB PO SCH ×2 (11:06→21:18)
[2022-03-07] MEDS: TACROLIMUS 1 MG CAP PO SCH ×2 (11:06→21:19)
[2022-03-07 11:12] LABS: African American GFR (CKD) 69 (>60 ml/min/1.73 sqM); Anion Gap 5 mmol/L; Blood Urea Nitrogen 30 mg/dL (9-20); Calcium 8.7 mg/dL (8.4-10.2); Carbon Dioxide 27 mmol/L (22-30); Chloride 106 mmol/L (98-107); Glucose 159 mg/dL (74-99); Non-African American GFR(CKD) 60 (>60 ml/min/1.73 sqM); Sodium 138 mmol/L (137-145)
[2022-03-07 11:14] LABS: Platelet Count 79 k/uL (150-450)
[2022-03-07] MEDS: AMPICILLIN-SULBACTAM 3 GM in SODIUM CHLORIDE 0.9% 100 ML IVPB SCH ×2 (13:32→18:39)
--- NOTE | 2022-03-07 14:38 | P.HPIM ---
History of Present Illness H&P Date: 03/07/22 This is a 76 year old male who presents to the with complaints of not feeling well and presents with fever and generalized weakness. Chest x-ray showing no acute cardio pulmonary process. Patient has a history of heart failure with heart transplant in 2010. Also has history of heart failure prior to transplant, and DVT in left leg found in 1999. He states his platelet count is always low. He is maintained on tacrolimus and prednisone daily He follows at [facility] for his heart transplant last seen in December and he sates everything was stable at that time. Labs on admission show white count 3.9, hgb 11.8, platelets are 81, sodium 136, BUN 30, creatinine 1.24, glucose 111, troponin negative. Urinalysis is negative. Influenza, COVID, RSV, and CMV are all negative. Fever on admission 100.9, up to 102.6, and has been afebrile this morning. Blood cultures are pending currently. Patient has been started on IV fluids, consult is placed to infectious disease services. Patient was started on IV ampicillin and will undergo abdominal pelvis CT. Repeat hemoglobin today 12.3, platelet count 79. REVIEW OF SYSTEMS: CONSTITUTIONAL: Reports fever, genearlized weakness. HEENT: No recent visual problems or hearing problems. Denied any sore throat. CARDIOVASCULAR: No chest pain, orthopnea, PND, no palpitations, no syncope. PULMONARY: No shortness of breath, no cough, no hemoptysis. GASTROINTESTINAL: No diarrhea, no nausea, no vomiting, no abdominal pain. NEUROLOGICAL: No headaches, no weakness, no numbness. HEMATOLOGICAL: Denies any bleeding or petechiae. GENITOURINARY: Denies any burning micturition, frequency, or urgency. MUSCULOSKELETAL/RHEUMATOLOGICAL: Denies any joint pain, swelling, or any muscle pain. ENDOCRINE: Denies any polyuria or polydipsia. The rest of the 14-point review of systems is negative. PHYSICAL EXAMINATION: GENERAL: The patient is alert and oriented x3, not in any acute distress. Well developed, well nourished. HEENT: Pupils are round and equally reacting to light. EOMI. No scleral icterus. No conjunctival pallor. Normocephalic, atraumatic. No pharyngeal erythema. No thyromegaly. CARDIOVASCULAR: S1 and S2 present. No murmurs, rubs, or gallops. PULMONARY: Chest is clear to auscultation, no wheezing or crackles. ABDOMEN: Soft, nontender, nondistended, normoactive bowel sounds. No palpable organomegaly. MUSCULOSKELETAL: No joint swelling or deformity. EXTREMITIES: No cyanosis, clubbing, Mild lower extremity edema left leg. NEUROLOGICAL: Gross neurological examination did not reveal any focal deficits. SKIN: No rashes. Assessment and plan Assessment Fever unknown origin, currently resolved. Blood cultures pending patient has been started on ampicillin empirically he does have a history of heart transplant. Infectious disease has been consulted. Patient will undergo abdominal / pelvis CT to rule out intra-adbominal source of infection. Thrombocytopenia, chronic per patient will continue to monitor and repeat tomorrow, consider hematology consult. History of heart transplant in 2010, follows at [facility]. He is on tacrolimus and prednisone daily which will be continued at this time History of DVT maintained on Eliquis History of heart failure per patient prior to heart transplant History of cardiac catheterization which was clear per patient GI prophylaxis Ppi DVT prophylaxis on Eliquis DVT Prophylaxis continue to hold eliquis Plan The impression and plan of care has been dictated by Zehra Thomas Nurse Practitioner as directed. Dr. Chapo MD I have performed a history and physical examination and medical decision making of this patient, discussed the same with the dictator, and agree with the dictators assessment and plan as written, documented as a scribe. Based on total visit time, I have performed more than 50% of this visit. Past Medical History Past Medical History: Heart Failure History of Any Multi-Drug Resistant Organisms: None Reported Past Surgical History: Heart Catheterization Additional Past Surgical History / Comment(s): heart transplant 2010. Heart Catheterization 06-21- [facility] Past Psychological History: No Psychological Hx Reported Smoking Status: Never smoker Past Alcohol Use History: None Reported Past Drug Use History: None Reported - Past Family History Father Family Medical History: Congestive Heart Failure (CHF), Renal Disease Mother Family Medical History: Unable to Obtain Medications and Allergies Home Medications Medication Instructions Recorded Confirmed Type Ascorbic Acid [Vitamin C] 500 mg PO BID 06/23/19 03/06/22 History Aspirin EC [Ecotrin Low Dose] 81 mg PO DAILY 06/23/19 03/06/22 History Furosemide [Lasix] 40 mg PO DAILY 06/23/19 03/06/22 History Multivitamins, Thera [Multivitamin 1 tab PO DAILY 06/23/19 03/06/22 History (formulary)] Omeprazole 20 mg PO DAILY 06/23/19 03/06/22 History Pravastatin Sodium [Pravachol] 20 mg PO HS 06/23/19 03/06/22 History Tacrolimus [Prograf] 1 mg PO BID 06/23/19 03/06/22 History Vitamin E (Dl,Tocopheryl Acet) 400 unit PO BID 06/23/19 03/06/22 History [Vitamin E] predniSONE 5 mg PO DAILY 06/23/19 03/06/22 History Apixaban [Eliquis] 5 mg PO BID 03/06/22 03/06/22 History Potassium Chloride [Potassium 10 meq PO DAILY 03/06/22 03/06/22 History Chloride ER] carvediloL [Coreg] 6.25 mg PO BID 03/06/22 03/06/22 History Allergies Allergy/AdvReac Type Severity Reaction Status Date / Time No Known Allergies Allergy Verified 03/06/22 20:00 Physical Exam Vitals: Vital Signs Temp Pulse Pulse Resp BP BP Pulse Ox 03/07/22 08:38 98.9 F 03/07/22 08:00 98.3 F 75 16 125/67 98 03/07/22 06:17 99.0 F 75 16 122/80 97 03/07/22 01:57 77 18 119/78 91 L 03/07/22 01:49 77 18 118/72 95 03/07/22 00:06 99.7 F H 77 18 120/77 97 03/06/22 20:00 82 102/53 03/06/22 19:00 89 89/62 03/06/22 18:00 95 126/77 03/06/22 17:38 102.6 F H 97 20 126/77 95 03/06/22 16:52 100.9 F H 98 16 118/75 96 Intake and Output 03/06/22 03/07/22 03/07/22 22:59 06:59 14:59 Other: Weight 81.647 kg 81.647 kg Results CBC & Chem 7: 03/07/22 10:18 03/07/22 10:18 Labs: Abnormal Lab Results - Last 24 Hours (Table) 05/22/22 05/22/22 Range/Units 17:13 17:13 RBC 3.38 L (4.30-5.90) m/uL Hgb 11.8 L (13.0-17.5) gm/dL Hct 33.3 L (39.0-53.0) % Plt Count 81 L (150-450) k/uL Sodium 136 L (137-145) mmol/L BUN 30 H (9-20) mg/dL Glucose 111 H (74-99) mg/dL Thrombosis Risk Factor Assmnt - Choose All That Apply Any of the Below Risk Factors Present?: Yes Each Factor Represents 1 point: Obesity (BMI >25) Each Risk Factor Represents 3 Points: Age 75 years or older, History of DVT/PE Thrombosis Risk Factor Assessment Total Risk Factor Score: 7 Thrombosis Risk Factor Assessment Level: High Risk Assessment and Plan Time with Patient: Less than 30
[2022-03-07] MEDS: IOPAMIDOL CONTRAST (ORAL USE) VIAL PO PRN ×2 (14:40→14:53)
[2022-03-07] MEDS: carvediloL 6.25 MG TAB PO SCH (14:54)
--- NOTE | 2022-03-07 19:07 | CT ---
EXAMINATION TYPE: CT abdomen pelvis wo con DATE OF EXAM: 03/07/2022 COMPARISON: None HISTORY: FEVER CT DLP: 1071 mGycm Automated exposure control for dose reduction was used. Images obtained from the diaphragm to the floor the pelvis with oral contrast. There is mild subsegmental atelectasis left lung base. Heart size is normal. No pericardial effusion. The right lung base is clear. There are clips from cholecystectomy. Liver and spleen are intact. There is no pancreatic mass. The s tomach is intact. The bile ducts are not dilated. There is epigastric ventral hernia that contains mu ltiple small bowel loops and measures 6 x 3 cm. No bowel obstruction seen. There is no adrenal mass. Kidneys show normal size. There is no hydronephrosis. Ureters are not dilat ed. There is some deformity of the kidneys which show the renal pelvis anteriorly. The bladder disten ds smoothly. There is no inguinal hernia. No free fluid in the pelvis. There are sigmoid diverticula. No diverticulitis. No sign of a bowel obstruction. Appendix not clearly seen. No sign of thickened a ppendix. There is some mild fat stranding in the small bowel mesentery. There is a thoracolumbar levoscoliotic deformity. There is multilevel lumbar spondylotic changes. No significant compression fracture. Bony pelvis is intact. The hip joints are intact. There is some mild acetabular spurring. IMPRESSION: There is some mild sigmoid diverticulosis. Epigastric ventral hernia containing small bowel but no si gn of a bowel obstruction. Minimal small bowel mesenteric edema of uncertain significance.
[2022-03-07 20:49] VITALS: RESP 18
[2022-03-07] MEDS ORDERED: PRAVASTATIN SODIUM 20 MG TAB PO SCH (21:00)
--- NOTE | 2022-03-08 00:07 | P.CONS ---
History of Present Illness - Reason for Consult Consult date: 03/07/22 Fever in immunocompromised Requesting physician: Smita Way - Chief Complaint Weakness x one day - History of Present Illness Patient is a 76-year-old male with a past medical history significant for heart transplant in 2010 at [facility] patient apparently has been doing well with no recent change in his immunosuppressive medication, patient presented to the [facility] ER last night for evaluation of generalized not feeling well symptom has been going on for about a day before presentation to the hospital patient on arrival to the ER was noticed to be febrile with a temperature of 102.6 F patient did have normal white count with no left shift or lymphopenia BUN was mildly elevated creatinine was normal liver enzymes were normal urine was negative patient did have a negative influenza and COVID testing CMV IgG was positive IgM was negative patient did have a chest x- ray reported negative for acute cardiopulmonary process. Patient this morning is afebrile he is feeling slightly better denies any headache no URI symptoms no chest pain shortness of breath or cough no abdominal pain no diarrhea no urinary symptoms Review of Systems Positive point has been mentioned in the HPI rest of the systems are negative Past Medical History Past Medical History: Heart Failure History of Any Multi-Drug Resistant Organisms: None Reported Past Surgical History: Heart Catheterization Additional Past Surgical History / Comment(s): heart transplant 2010. Heart Catheterization 06-21-19 [facility] Past Psychological History: No Psychological Hx Reported Smoking Status: Never smoker Past Alcohol Use History: None Reported Past Drug Use History: None Reported - Past Family History Father Family Medical History: Congestive Heart Failure (CHF), Renal Disease Mother Family Medical History: Unable to Obtain Medications and Allergies Home Medications Medication Instructions Recorded Confirmed Type Ascorbic Acid [Vitamin C] 500 mg PO BID 06/23/19 03/06/22 History Aspirin EC [Ecotrin Low Dose] 81 mg PO DAILY 06/23/19 03/06/22 History Furosemide [Lasix] 40 mg PO DAILY 06/23/19 03/06/22 History Multivitamins, Thera [Multivitamin 1 tab PO DAILY 06/23/19 03/06/22 History (formulary)] Omeprazole 20 mg PO DAILY 06/23/19 03/06/22 History Pravastatin Sodium [Pravachol] 20 mg PO HS 06/23/19 03/06/22 History Tacrolimus [Prograf] 1 mg PO BID 06/23/19 03/06/22 History Vitamin E (Dl,Tocopheryl Acet) 400 unit PO BID 06/23/19 03/06/22 History [Vitamin E (400 Iu = 180 mg)] predniSONE 5 mg PO DAILY 06/23/19 03/06/22 History Apixaban [Eliquis] 5 mg PO BID 03/06/22 03/06/22 History Potassium Chloride [Potassium 10 meq PO DAILY 03/06/22 03/06/22 History Chloride ER] carvediloL [Coreg] 6.25 mg PO BID 03/06/22 03/06/22 History Amoxic-Pot Clav 875-125Mg 1 tab PO BID 7 Days #14 tab 03/08/22 Rx [Augmentin 875-125] Allergies Allergy/AdvReac Type Severity Reaction Status Date / Time Iodinated Contrast Media Allergy Unknown Verified 03/07/22 16:28 Physical Exam Vitals: Vital Signs Temp Pulse Pulse Resp BP BP Pulse Ox 03/07/22 08:38 98.9 F 03/07/22 08:00 98.3 F 75 16 125/67 98 03/07/22 06:17 99.0 F 75 16 122/80 97 03/07/22 01:57 77 18 119/78 91 L 03/07/22 01:49 77 18 118/72 95 03/07/22 00:06 99.7 F H 77 18 120/77 97 03/06/22 20:00 82 102/53 03/06/22 19:00 89 89/62 03/06/22 18:00 95 126/77 03/06/22 17:38 102.6 F H 97 20 126/77 95 03/06/22 16:52 100.9 F H 98 16 118/75 96 Intake and Output 03/06/22 03/07/22 03/07/22 22:59 06:59 14:59 Intake Total 10 Balance 10 Intake: IV 10 Invasive Line 1 10 Other: Weight 81.647 kg 81.647 kg GENERAL DESCRIPTION: An elderly male lying in bed, no distress. No tachypnea or accessory muscle of respiration use. HEENT: Shows Pallor , no scleral icterus. Oral mucous membrane is dry. No pharyngeal erythema or thrush NECK: Trachea central, no thyromegaly. LUNGS: Unlabored breathing. Clear to auscultation anteriorly. No wheeze or crackle. HEART: S1, S2, regular rate and rhythm. No loud murmur ABDOMEN: Soft, no tenderness , guarding or rigidity, no organomegaly EXTREMITIES: No edema of feet. SKIN: No rash, no masses palpable. NEUROLOGICAL: The patient is awake, alert, oriented x3, mood and affect normal. Results CBC & Chem 7: 03/08/22 06:03 03/08/22 06:03 Labs: Abnormal Lab Results - Last 24 Hours (Table) 03/06/22 03/06/22 03/07/22 Range/Units 17:13 17:13 00:01 RBC 3.38 L (4.30-5.90) m/uL Hgb 11.8 L (13.0-17.5) gm/dL Hct 33.3 L (39.0-53.0) % Plt Count 81 L (150-450) k/uL Sodium 136 L (137-145) mmol/L BUN 30 H (9-20) mg/dL Glucose 111 H (74-99) mg/dL CMV IgG Ab Reactive A (Nonreactive) Assessment and Plan (1) Fever of unknown origin Status: Acute Code(s): R50.9 - FEVER, UNSPECIFIED SNOMED Code(s): 1620415 (2) Immunocompromised Status: Acute Code(s): D84.9 - IMMUNODEFICIENCY, UNSPECIFIED SNOMED Code(s): 555175737 Plan: 1patient presented to hospital with generalized weakness not feeling well and this patient did have a fever that has subsequently resolved and currently do not have any obvious focus of this infection however the patient is immunocompromise from his immunosuppressive medication because of the heart transplant however no recent change in his immunosuppressive medication. 2we will check inflammatory markers. 3check a CT of abdominal pelvis. 4we will empirically add Unasyn while waiting for the work-up to be completed. We will follow on clinical condition and cultures to further adjust medication if needed Thank you for this consultation will follow this patient along with you Time with Patient: Greater than 30
[2022-03-08] MEDS: AMPICILLIN-SULBACTAM 3 GM in SODIUM CHLORIDE 0.9% 100 ML IVPB SCH ×3 (00:17→12:59)
[2022-03-08] MEDS: SODIUM CHLORIDE 0.9% 1,000 ML IV SCH ×2 (07:25→09:13)
[2022-03-08] MEDS ORDERED: PANTOPRAZOLE 40 MG TABLET PO SCH (07:30)
[2022-03-08] MEDS ORDERED: ASPIRIN 81 MG PO SCH (09:00)
[2022-03-08] MEDS: APIXABAN 5 MG TAB PO SCH (09:09)
[2022-03-08] MEDS: carvediloL 6.25 MG TAB PO SCH (09:09)
[2022-03-08] MEDS: predniSONE 5 MG TAB PO SCH (09:12)
[2022-03-08] MEDS: TACROLIMUS 1 MG CAP PO SCH (09:12)
[2022-03-08 09:34] LABS: African American GFR (CKD) 76.6 (60.0-200.0); Albumin 3.7 g/dL (3.8-4.9); Albumin/Globulin Ratio 1.73 (1.60-3.17); Anion Gap 10.9 mmol/L (10.00-18.00); BUN/Creat Ratio 24.68 Ratio (12.00-20.00); Blood Urea Nitrogen 26.9 mg/dL (9.0-27.0); C Reactive Protein 4.9 mg/dL (0.00-0.80); Calcium 8.8 mg/dL (8.7-10.3); Carbon Dioxide 24.8 mmol/L (20.0-27.5); Globulin 2.2 g/dL (1.6-3.3); Non-African American GFR(CKD) 66.1 (60.0-200.0); Potassium 3.8 mmol/L (3.5-5.5); Total Bilirubin 0.5 mg/dL (0.30-1.20); Total Protein 5.9 g/dL (6.2-8.2)
[2022-03-08 10:15] LABS: Basophils # (A) 0.02 X 10*3/uL (0.00-0.10); Basophils % (A) 0.4 %; Eosinophils # (A) 0.12 X 10*3/uL (0.04-0.35); Eosinophils % (A) 2.5 %; HCT 34.3 % (39.6-50.0); HGB 11.4 g/dL (13.0-17.0); Immature Grans, Automated 0.2 %; Immature Platelet Fraction 3.3 % (1.1-6.1); Lymphocytes # (A) 2.13 X 10*3/uL (0.90-5.00); Lymphocytes % (A) 44.8 %; MCH 32.9 pg (27.0-32.0); MCHC 33.2 g/dL (32.0-37.0); MCV 98.8 fL (80.0-97.0); Monocytes # (A) 0.48 X 10*3/uL (0.20-1.00); Monocytes % (A) 10.1 %; NRBC Per 100 WBC 0 /100 WBCS (0.0-0.0); Neutrophils # (A) 1.99 X 10*3/uL (1.80-7.70); Platelet Count 80 X 10*3/uL (140-440); RBC 3.47 X 10*6/uL (4.40-5.60); RDW 13.1 % (11.5-14.5); WBC 4.75 X 10*3/uL (4.50-10.00)
[2022-03-08 12:03] VITALS: BP 133/74; PULSE 78; TEMP 98.2
--- NOTE | 2022-03-08 16:12 | P.DS ---
Providers Date of admission: 03/06/22 22:46 Attending physician: Ioana Egan Consults: 03/06/22 22:46 Consult Physician Routine Consulting Provider: Lamar Henry Consult Reason/Comments: fever, immunocompromised Do you want consulting provider notified?: Yes, Notify in am Primary care physician: Physician Nonstaff Hospital Course: Final Diagnosis Fever, viral etiology vs. mild acute diverticulitis as evidenced on abdominal CT. Pt denies diarrhea, abdominal pain and currently fever has resolved. Thrombocytopenia, chronic per patient and has improved History of heart transplant in 2010, follows at [facility]. 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 He will complete a course of antibiotic therapy with oral augmentin. Follow up with primary care provider. Hospital Course This is a pleasant 76 year old male who presents with history of fever over the last few days with generalized weakness. He denies shortness of breath, chest pain. Denies abdominal pain, denies nausea vomiting diarrhea. Patient blood cultures taken which are negative. He was started on IV Zosyn and admitted with infectious disease consult. Patient has a history of heart transplant in 2010. He is maintained on tacrolimus and prednisone daily which are continued at this time, also history of DVT left leg maintained on eliquis commission heart failure, history of clear cardiac catheterization, should hernia. Patient also states that his platelet count is chronically low. No clear source of infection has been found, chest x-ray negative, urinalysis negative, proposed he showing mild sigmoid diverticulosis there is possibility there is some mild colitis. However patient denies any nausea vomiting diarrhea or abdominal pain. Clinically is improved on IV antibiotics and continue therapy with 7 more days of oral Augmentin at discharge. Follow up recommended with primary provider and heart team at [facility]. Diagnostics on admission White count 3.9, hgb 11.8, hct 33.3, platelet count 81, sodium 136, potassium 4.1, BUN 30, creat 1.24, glucose 111, troponin negative. Chest xray negative for acute process Abdominal Pelvis CT showing some mild sigmoid diverticulosis, epigastric ventral hernia containing small bowel but no sign of bowel obstruction, with minimal small bowel mesenteric edema of uncertain significance. CRP 4.90, Procalcitonin 0.25. Urinalysis negative for infection. Tacrolimus level 4.2. CMV IGG reactive, CMG IGM negative 03/08/2022 Patient evaluated today sitting up in the chair. He denies shortness of breath, denies chest pain. Denies abdominal pain, denies nausea, vomiting, diarrhea. He has been monitored overnight and patient has remained febrile. He was treated with IV zosyn and will complete a 7 day course of oral augmentin BID. He was evaluated and cleared for discharge by infectious disease services. Labs today show white count 4.75, hgb 11.4, platelets are 80, sodium 144, potassium 3.8, BUN 26.9, creatinine 1.1, blood glucose 109. Today his lungs are clear, S1 S2 auscultated, abdomen is soft and nontender, Focal neurological exam is negative. Vital signs today, 98.2 temperature, heart rate 78, blood pressure 150/74, 98% room air. No acute events overnight. He has family at the bedside and plan of care was discussed. Patient would like to be discharged home today. Please see medication reconciliation for a list of current medication. Thank you for allowing us to participate in the care of this patient. The impression and plan of care has been dictated by Zehra Thomas, Nurse Practitioner as directed. Dr. Chapo MD I have performed a history and physical examination and medical decision making of this patient, discussed the same with the dictator, and agree with the dictators assessment and plan as written, documented as a scribe. Based on total visit time, I have performed more than 50% of this visit. Patient Condition at Discharge: Stable Plan - Discharge Summary Discharge Rx Participant: No New Discharge Prescriptions: New Amoxic-Pot Clav 875-125Mg [Augmentin 875-125] 1 tab PO BID 7 Days #14 tab Continue Vitamin E (Dl,Tocopheryl Acet) [Vitamin E (400 Iu = 180 mg)] 400 unit PO BID Tacrolimus [Prograf] 1 mg PO BID predniSONE 5 mg PO DAILY Pravastatin Sodium [Pravachol] 20 mg PO HS Omeprazole 20 mg PO DAILY Multivitamins, Thera [Multivitamin (formulary)] 1 tab PO DAILY Furosemide [Lasix] 40 mg PO DAILY Aspirin EC [Ecotrin Low Dose] 81 mg PO DAILY Ascorbic Acid [Vitamin C] 500 mg PO BID Potassium Chloride [Potassium Chloride ER] 10 meq PO DAILY carvediloL [Coreg] 6.25 mg PO BID Apixaban [Eliquis] 5 mg PO BID Discharge Medication List Ascorbic Acid [Vitamin C] 500 mg PO BID 06/23/19 [History] Aspirin EC [Ecotrin Low Dose] 81 mg PO DAILY 06/23/19 [History] Furosemide [Lasix] 40 mg PO DAILY 06/23/19 [History] Multivitamins, Thera [Multivitamin (formulary)] 1 tab PO DAILY 06/23/19 [History] Omeprazole 20 mg PO DAILY 06/23/19 [History] Pravastatin Sodium [Pravachol] 20 mg PO HS 06/23/19 [History] Tacrolimus [Prograf] 1 mg PO BID 06/23/19 [History] Vitamin E (Dl,Tocopheryl Acet) [Vitamin E (400 Iu = 180 mg)] 400 unit PO BID 06/23/19 [History] predniSONE 5 mg PO DAILY 06/23/19 [History] Apixaban [Eliquis] 5 mg PO BID 03/06/22 [History] Potassium Chloride [Potassium Chloride ER] 10 meq PO DAILY 03/06/22 [History] carvediloL [Coreg] 6.25 mg PO BID 03/06/22 [History] Amoxic-Pot Clav 875-125Mg [Augmentin 875-125] 1 tab PO BID 7 Days #14 tab 03/08/22 [Rx] Follow up Appointment(s)/Referral(s): Dr Dominik [Other] - 03/10/22 (Appointment with Mar SWARTZ) Patient Instructions/Handouts: Amoxicillin/Clavulanate Potassium (By mouth), Diverticulitis Diet (DC) Activity/Diet/Wound Care/Special Instructions: APPOINTMENT WITH DR. RASMUSSEN'S OFFICE WITH MAR SWARTZ, IS February, AT 1:20 AT [facility] Finish 7 days of augmentin twice a day Viral illness versus mild acute diverticulitis Continue with omeprazole daily Monitor for fever, chills Discharge Disposition: HOME SELF-CARE
--- NOTE | 2022-03-15 23:34 | P.PN ---
Subjective Progress Note Date: 03/08/22 Principal diagnosis: Fever Patient is a 76-year-old male with a past medical history significant for heart transplant with no change in his immunosuppressive medication p resented to the hospital with not feeling well noticed to have a fever. On today's evaluation that is 03/08/2022, the patient denies having any fever or chills, the patient is feeling better, denies having any headache no chest pain shortness of breath or cough no nausea no vomiting no abdominal pain or diarrhea Objective - Vital Signs Vital signs: Vital Signs Temp 98 F 03/08/22 05:35 Pulse 83 03/08/22 05:35 Resp 18 03/08/22 05:35 BP 136/73 03/08/22 05:35 Pulse Ox 96 03/08/22 05:35 FiO2 Intake & Output 03/07/22 03/08/22 03/08/22 18:59 06:59 18:59 Intake Total 530 650 Balance 530 650 Weight 81.647 kg Intake: IV 10 Invasive Line 1 10 Intake, IV Titration 650 Amount Ampicillin-Sulbactam 3 gm 200 In Sodium Chloride 0.9% 100 ml @ 200 mls/hr IVPB Q6HR [facility] Rx#:[id number] Sodium Chloride 0.9% 1, 450 000 ml @ 75 mls/hr IV . [id number] [facility] Rx#:[id number] Oral 520 Other: Voiding Method Toilet Toilet # Voids 3 - Exam GENERAL DESCRIPTION: An elderly male lying in bed in no distress RESPIRATORY SYSTEM: Unlabored breathing , decreased breath sounds at bases HEART: S1 S2 regular rate and rhythm , ABDOMEN: Soft , no tenderness EXTREMITIES: No edema feet - Labs CBC & Chem 7: 03/08/22 06:03 03/08/22 06:03 Labs: Abnormal Lab Results - Last 24 Hours (Table) 03/07/22 03/07/22 03/07/22 Range/Units 10:18 10:18 10:18 RBC 3.63 L (4.30-5.90) m/uL Hgb 12.3 L (13.0-17.5) gm/dL Hct 36.6 L (39.0-53.0) % MCV 100.8 H (80.0-100.0) fL Plt Count 79 L (150-450) k/uL BUN 30 H (9-20) mg/dL BUN/Creatinine Ratio (12.00-20.00) Ratio Glucose 159 H (74-99) mg/dL C-Reactive Protein (0.00-0.80) mg/dL Total Protein (6.2-8.2) g/dL Albumin (3.8-4.9) g/dL Procalcitonin 0.25 H (0.02-0.09) ng/mL 03/08/22 Range/Units 06:03 RBC (4.30-5.90) m/uL Hgb (13.0-17.5) gm/dL Hct (39.0-53.0) % MCV (80.0-100.0) fL Plt Count (150-450) k/uL BUN (9-20) mg/dL BUN/Creatinine Ratio 24.68 H (12.00-20.00) Ratio Glucose (74-99) mg/dL C-Reactive Protein 4.90 H (0.00-0.80) mg/dL Total Protein 5.9 L (6.2-8.2) g/dL Albumin 3.7 L (3.8-4.9) g/dL Procalcitonin (0.02-0.09) ng/mL Microbiology - Last 24 Hours (Table) 03/06/22 17:15 Blood Culture - Preliminary Blood No Growth after 24 hours 03/06/22 17:30 Blood Culture - Preliminary Blood No Growth after 24 hours Assessment and Plan (1) Fever of unknown origin Status: Acute Code(s): R50.9 - FEVER, UNSPECIFIED SNOMED Code(s): 7852535 Plan: 1patient presented to hospital with generalized weakness not feeling well and this patient did have a fever that has subsequently resolved and currently do not have any obvious focus of this infection however the patient is immunocompromise from his immunosuppressive medication because of the heart transplant however no recent change in his immunosuppressive medication. 2patient CT of abdominal pelvis did show some mesenteric edema but no other abnormality. 3 patient fever has resolved workup has been negative cultures negative and wants to go home and will give a short course of oral Augmentin and close outpatient follow-up Time with Patient: Less than 30
== END 2022-03-08 15:31 | disposition home or self-care (01) ==
LOC: EC 16:35 → 5NMEDONC 22:46 → INTOOBSV 22:46 → 5NMEDONC 03-07 07:03 → UNDODISIN 03-08 15:31
PROVIDERS: ADMIT Hospitalist; ATTEND Hospitalist
DX: R50.9 Fever, unspecified (principal); D84.9 Immunodeficiency, unspecified; Z94.1 Heart transplant status; K57.30 Diverticulosis of large intestine without perforation or abscess without bleeding; K43.6 Other and unspecified ventral hernia with obstruction, without gangrene; R53.1 Weakness; D69.6 Thrombocytopenia, unspecified; I50.9 Heart failure, unspecified; E66.9 Obesity, unspecified; Z68.25 Body mass index [BMI] 25.0-25.9, adult; Z20.822 Contact with and (suspected) exposure to COVID-19; Z86.718 Personal history of other venous thrombosis and embolism; Z79.01 Long term (current) use of anticoagulants; Z79.52 Long term (current) use of systemic steroids; Z79.82 Long term (current) use of aspirin; Z79.899 Other long term (current) drug therapy; Z91.041 Radiographic dye allergy status; Z86.711 Personal history of pulmonary embolism; Z90.49 Acquired absence of other specified parts of digestive tract; Z87.19 Personal history of other diseases of the digestive system; Z82.49 Family history of ischemic heart disease and other diseases of the circulatory system; Z84.1 Family history of disorders of kidney and ureter
CPT/HCPCS: 96361; 96365; 96366 ×2; 96375; 99285; 36415; 93005; 80053 ×2; 80048; 80197; 83605; 84484; 85025 ×3; 85610; 85730; 86140; 81003; 87040; 86644; 86645; 84145; 87636; 71046; 74176; G0378 ×3; J7507 ×2; J0295 ×2; J7512 ×2; C9113; 96360

== ENCOUNTER → 2022-05-12 | Outpatient (CLI) | payer MEDICARE ==
[2022-05-12 18:25] LABS: Basophils # (A) 0.01 X 10*3/uL (0.00-0.10); Basophils % (A) 0.3 %; Eosinophils # (A) 0.11 X 10*3/uL (0.04-0.35); Eosinophils % (A) 2.8 %; HCT 31.9 % (39.6-50.0); HGB 10.8 g/dL (13.0-17.0); Immature Grans, Automated 0 %; Lymphocytes # (A) 2.31 X 10*3/uL (0.90-5.00); Lymphocytes % (A) 58.2 %; MCH 32.6 pg (27.0-32.0); MCHC 33.9 g/dL (32.0-37.0); MCV 96.4 fL (80.0-97.0); Mean Platelet Volume 10.4 fL (9.5-12.2); Monocytes # (A) 0.34 X 10*3/uL (0.20-1.00); Monocytes % (A) 8.6 %; NRBC Per 100 WBC 0 /100 WBCS (0.0-0.0); Neutrophils % (A) 30.1 %; Platelet Count 113 X 10*3/uL (140-440); RBC 3.31 X 10*6/uL (4.40-5.60); RDW 12.9 % (11.5-14.5); WBC 3.97 X 10*3/uL (4.50-10.00)
[2022-05-12 18:40] LABS: African American GFR (CKD) 68.1 (60.0-200.0); Albumin 3.8 g/dL (3.8-4.9); Albumin/Globulin Ratio 1.58 (1.60-3.17); BUN/Creat Ratio 25.42 Ratio (12.00-20.00); Blood Urea Nitrogen 30.5 mg/dL (9.0-27.0); Calcium 9.4 mg/dL (8.7-10.3); Globulin 2.4 g/dL (1.6-3.3); Magnesium 1.6 mg/dL (1.5-2.4); Non-African American GFR(CKD) 58.8 (60.0-200.0); Potassium 4.1 mmol/L (3.5-5.5); Total Bilirubin 0.4 mg/dL (0.30-1.20); Total Protein 6.2 g/dL (6.2-8.2)
== END | disposition home or self-care (01) ==
LOC: LABWHC1 11:25
PROVIDERS: ATTEND Internal Medicine
DX: I50.30 Unspecified diastolic (congestive) heart failure (principal); E78.2 Mixed hyperlipidemia; T86.22 Heart transplant failure; T86.290 Cardiac allograft vasculopathy; Y82.9 Unspecified medical devices associated with adverse incidents
CPT/HCPCS: 36415; 80053; 80197; 82550; 83735; 83880; 85025

== ENCOUNTER 2023-03-24 19:46 | Emergency (ER) | payer MEDICARE ==
[2023-03-24 19:52] VITALS: TEMP 98.1
[2023-03-24 20:06] LABS: Basophils % (A) 0 %; Eosinophils # (A) 0.1 k/uL (0-0.7); Eosinophils % (A) 2 %; HCT 33.8 % (39.0-53.0); HGB 11.7 gm/dL (13.0-17.5); Lymphocytes # (A) 1.9 k/uL (1.0-4.8); Lymphocytes % (A) 38 %; MCH 33.5 pg (25.0-35.0); MCHC 34.6 g/dL (31.0-37.0); MCV 96.9 fL (80.0-100.0); Mean Platelet Volume 8.3; Monocytes # (A) 0.2 k/uL (0-1.0); Monocytes % (A) 4 %; Neutrophils # (A) 2.7 k/uL (1.3-7.7); Neutrophils % (A) 54 %; Platelet Count 100 k/uL (150-450); RBC 3.49 m/uL (4.30-5.90); RDW 13.3 % (11.5-15.5); WBC 5.1 k/uL (3.8-10.6)
[2023-03-24] MEDS ORDERED: methylPREDNISolone SOD SUCCI 125 MG/2 ML VIAL IV STA (20:09)
[2023-03-24] MEDS ORDERED: FAMOTIDINE 20 MG/2 ML VIAL IV STA (20:09)
[2023-03-24] MEDS ORDERED: diphenhydrAMINE 50 MG/ML 1 ML VIAL IVP STA (20:09)
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
[2023-03-24 20:19] LABS: ALT 20 U/L (4-49); AST 28 U/L (17-59); African American GFR (CKD) 60 (>60 ml/min/1.73 sqM); Albumin 3.6 g/dL (3.5-5.0); Alcohol <10 mg/dL; Alkaline Phosphatase 71 U/L (38-126); Anion Gap 10 mmol/L; Blood Urea Nitrogen 33 mg/dL (9-20); Carbon Dioxide 23 mmol/L (22-30); Chloride 105 mmol/L (98-107); Glucose 147 mg/dL (74-99); Non-African American GFR(CKD) 52 (>60 ml/min/1.73 sqM); Potassium 4.7 mmol/L (3.5-5.1); Sodium 138 mmol/L (137-145); Total Protein 6.4 g/dL (6.3-8.2)
[2023-03-24 20:27] LABS: INR 1.1 (<1.2); Partial Thromboplastin Time 24.4 sec (22.0-30.0)
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
[2023-03-24] MEDS ORDERED: ACETAMINOPHEN TAB 500 MG TAB PO STA (22:10)
[2023-03-24 22:33] LABS: Amphetamine Screen,Urine Not Detected (NotDetected); Barbiturate Screen,Urine Not Detected (NotDetected); Benzodiazepines Screen,Urine Not Detected (NotDetected); Cocaine Screen,Urine Not Detected (NotDetected); Methadone Screen, Urine Not Detected (NotDetected); Opiate Screen,Urine Not Detected (NotDetected); Oxycodone Screen, Urine Not Detected (NotDetected); Phencyclidine Screen,Urine Not Detected (NotDetected); Tricyclic Antidepressant,Urine Not Detected (NotDetected); Urn Cannabinoid Scrn Not Detected (NotDetected)
[2023-03-24 22:42] VITALS: PULSE 86; RESP 18
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
[2023-03-24 23:57] VITALS: BP 125/83
== END 2023-03-25 00:08 | disposition home or self-care (01) ==
LOC: EC 19:46
DX: S70.02XA Contusion of left hip, initial encounter (principal); S69.91XA Unspecified injury of right wrist, hand and finger(s), initial encounter; I50.9 Heart failure, unspecified; Z91.041 Radiographic dye allergy status; Z79.82 Long term (current) use of aspirin; Z79.899 Other long term (current) drug therapy; Z79.01 Long term (current) use of anticoagulants; V43.52XA Car driver injured in collision with other type car in traffic accident, initial encounter
CPT/HCPCS: 36415; 93005; 80053; 84484; 85025; 85610; 85730; 80306; 72170; 73110 ×2; 73560; 71045; 72125; 70450; 71260; 74177; 99285; 96374; 96375 ×2; G0480; J1200; J2930; Q9967; 80320

== ENCOUNTER 2023-05-25 17:09 | Inpatient (IN) | payer MEDICARE ==
[2023-05-25] MEDS ORDERED: SODIUM CHLORIDE 0.9% 1,000 ML IV STA (17:28)
--- NOTE | 2023-05-25 17:28 | ED ---
Weakness HPI - General Stated complaint: Failure to Thrive Time Seen by Provider: 05/25/23 17:27 Source: RN notes reviewed, old records reviewed Limitations: no limitations - History of Present Illness Initial comments: This is a 77 show male to the emergency department for evaluation today. Patient resents today will for evaluation of weakness and inability to ablate after fall. He was found during a well check to be laying on the ground covered in his own stool and urine. Patient presents today for evaluation EMS for failure to thrive weakness and fall MD Complaint: generalized weakness -: hour(s) Location: generalized Severity: moderate Severity scale (1-10): 5 Quality: tingling, numbness Consistency: constant Improves with: none Worsens with: none Context: recent illness, history of similar Associated Symptoms: denies other symptoms - Related Data Home Medications Medication Instructions Recorded Confirmed Ascorbic Acid [Vitamin C] 500 mg PO BID 06/23/19 05/25/23 Aspirin EC [Ecotrin Low Dose] 81 mg PO DAILY 06/23/19 05/25/23 Furosemide [Lasix] 40 mg PO DAILY 06/23/19 05/25/23 Omeprazole 20 mg PO DAILY 06/23/19 05/25/23 Pravastatin Sodium [Pravachol] 20 mg PO HS 06/23/19 05/25/23 Tacrolimus [Prograf] 1 mg PO BID 06/23/19 05/25/23 Vitamin E (Dl,Tocopheryl Acet) 400 unit PO BID 06/23/19 05/25/23 [Vitamin E (400 Iu = 180 mg)] predniSONE 5 mg PO DAILY 06/23/19 05/25/23 Apixaban [Eliquis] 5 mg PO BID 03/06/22 05/25/23 carvediloL [Coreg] 6.25 mg PO BID 03/06/22 05/25/23 Acetaminophen Tab [Tylenol] 500 mg PO Q6H PRN 03/24/23 05/25/23 Calcium Carbonate/Vitamin D3 1 cap PO TID 03/24/23 05/25/23 [Calcium 600-Vit D3 62.5 Mcg (2,500 Iu)] Multivitamin With Folic Acid 400 1 tab PO DAILY 03/24/23 05/25/23 Mcg Tab Previous Rx's Medication Instructions Recorded Ferrous Sulfate [Iron (65 MG 325 mg PO DAILY 30 Days #30 tab 05/30/23 Elemental)] Allergies Allergy/AdvReac Type Severity Reaction Status Date / Time Iodinated Contrast Media Allergy Unknown Verified 05/25/23 17:29 Review of Systems ROS Statement: Those systems with pertinent positive or pertinent negative responses have been documented in the HPI. ROS Other: All systems not noted in ROS Statement are negative. Past Medical History Past Medical History: Heart Failure History of Any Multi-Drug Resistant Organisms: None Reported Past Surgical History: Heart Catheterization Additional Past Surgical History / Comment(s): heart transplant 2010. Heart Catheterization 9-6-19 [facility] Past Psychological History: No Psychological Hx Reported Smoking Status: Never smoker Past Alcohol Use History: None Reported Past Drug Use History: None Reported - Past Family History Father Family Medical History: Congestive Heart Failure (CHF), Renal Disease Mother Family Medical History: Unable to Obtain General Exam General appearance: alert, in no apparent distress Head exam: Present: atraumatic, normocephalic, normal inspection Eye exam: Present: normal appearance, PERRL, EOMI. Absent: scleral icterus, conjunctival injection, periorbital swelling ENT exam: Present: normal exam, mucous membranes moist Neck exam: Present: normal inspection. Absent: tenderness, meningismus, lymphadenopathy Respiratory exam: Present: normal lung sounds bilaterally. Absent: respiratory distress, wheezes, rales, rhonchi, stridor Cardiovascular Exam: Present: normal rhythm, tachycardia, normal heart sounds. Absent: systolic murmur, diastolic murmur, rubs, gallop, clicks GI/Abdominal exam: Present: soft, normal bowel sounds. Absent: distended, tenderness, guarding, rebound, rigid Extremities exam: Present: normal inspection, full ROM, normal capillary refill. Absent: tenderness, pedal edema, joint swelling, calf tenderness Back exam: Present: normal inspection Neurological exam: Present: alert, oriented X3, CN II-XII intact Psychiatric exam: Present: normal affect, normal mood Skin exam: Present: warm, dry, intact, normal color. Absent: rash Course Vital Signs 05/25/23 05/25/23 05/25/23 17:19 19:00 19:55 Temperature 97.7 F 98.1 F Pulse Rate 111 H 80 98 Respiratory 20 12 16 Rate Blood Pressure 114/84 137/65 123/76 O2 Sat by Pulse 95 94 L 98 Oximetry 08/10/23 21:00 Temperature 98.8 F Pulse Rate 100 Respiratory 18 Rate Blood Pressure 115/74 O2 Sat by Pulse 98 Oximetry - Reevaluation(s) Reevaluation #1: 05/25/23 20:33 Medical record is reviewed Reevaluation #2: 05/25/23 20:33 Patient has no change in symptoms here in the ER Reevaluation #3: 05/25/23 20:34 patient informed of results and questions answered Reevaluation #4: 05/25/23 20:34 Was pt. sent in by a medical professional or institution (MAXIME Calle, [employer]ING UP [employer]PERVISOR, urgent care, hospital, or jail...) When possible be specific @ -no Did you speak to anyone other than the patient for history (EMS, parent, family, police, friend...)? What history was obtained from this source @ -no Did you review nursing and triage notes (agree or disagree)? Why? @ -agree Are old charts reviewed (outside hosp., previous admission, EMS record, old EKG, old radiological studies, urgent care reports/EKG's, jail records)? Report findings @ -yes Differential Diagnosis (chest pain, altered mental status, abdominal pain women, abdominal pain men, vaginal bleeding, weakness, fever, dyspnea, syncope, headache, dizziness, GI bleed, back pain, seizure, CVA, palpatations, mental health, musculoskeletal)? @ -prior EKG interpreted by me (3pts min.). @ -yes X-rays interpreted by me (1pt min.). @ -yes CT interpreted by me (1pt min.). @ -yes U/S interpreted by me (1pt. min.). @ -no What testing was considered but not performed or refused? (CT, X-rays, U/S, labs)? Why? @ -none What meds were considered but not given or refused? Why? @ -none Did you discuss the management of the patient with other professionals (professionals i.e. [facility] Calle, [employer]ING UP SUPERVISOR, lab, RT, psych nurse, web content & social media manager, park worker supervisor, teacher, ict help desk officer, case reviewer)? Give summary @ -no Was smoking cessation discussed for >3mins.? @ -no Was critical care preformed (if so, how long)? @ -no Were there social determinants of health that impacted care today? How? (Homelessness, low income, unemployed, alcoholism, drug addiction, transportatio n, low edu. Level, literacy, decrease access to med. care, shelter, rehab)? @ -none Was there de-escalation of care discussed even if they declined (Discuss DNR or withdrawal of care, Hospice)? DNR status @ -no What co-morbidities impacted this encounter? (DM, HTN, Smoking, COPD, CAD, Cancer, CVA, ARF, Chemo, Hep., AIDS, mental health diagnosis, sleep apnea, morbid obesity)? @ -none Was patient admitted / discharged? Hospital course, mention meds given and route, prescriptions, significant lab abnormalities, going to OR and other pertinent info. @ - 77 male to the emergency room today for evaluation patient presents for evaluation of weakness unable to ambulate and failure to thrive. Patient does have a mild rhabdomyolysis evidence of laying on the floor for a day or so. Patient has no significant other lab abnormalities no traumatic injury is noted, patient will admit for possible placement Admitted Undiagnosed new problem with uncertain prognosis? @ -no Drug Therapy requiring intensive monitoring for toxicity (Heparin, Nitro, Insulin, Cardizem)? @ -no Were any procedures done? @ -no Diagnosis/symptom? @ -Weakness, debility, failure to thrive Acute, or Chronic, or Acute on Chronic? @ -Acute Uncomplicated (without systemic symptoms) or Complicated (systemic symptoms)? @ -Complicated Side effects of treatment? @ -no Exacerbation, Progression, or Severe Exacerbation? @ -exacerbation Poses a threat to life or bodily function? How? (Chest pain, USA, OK, pneumonia, PE, COPD, DKA, ARF, appy, cholecystitis, CVA, Diverticulitis, Homicidal, Suicidal, threat to staff... and all critical care pts) @ -yes severe debility and extreme of age Reevaluation #5: 05/25/23 20:34 Differential Weakness: Hypoglycemia, shock, sepsis, hyponatremia, anemia, infection, OK, ETOH, adverse medicine reaction, overdose, stroke, this is not meant to be an all-inclusive list. - Consultations Consultation #1: Spoke with sound who agrees to admit this patient EKG Findings - EKG Comments: EKG Findings:: EKG is sinus tachycardia 113 NH 139 QRS 161 QTc 476 - EKG Results: EKG: interpreted by [facility] Medical Decision Making - Medical Decision Making 77 male to the emergency room today for evaluation patient presents for evaluation of weakness unable to ambulate and failure to thrive. Patient does have a mild rhabdomyolysis evidence of laying on the floor for a day or so. Patient has no significant other lab abnormalities no traumatic injury is noted, patient will admit for possible placement - Lab Data Result diagrams: 05/30/23 09:12 05/30/23 09:12 Lab Results 05/25/23 05/25/23 05/25/23 Range/Units 17:46 17:46 17:46 WBC 15.5 H (3.8-10.6) k/uL RBC 2.97 L (4.30-5.90) m/uL Hgb 10.2 L (13.0-17.5) gm/dL Hct 28.5 L (39.0-53.0) % MCV 96.1 (80.0-100.0) fL MCH 34.5 (25.0-35.0) pg MCHC 35.9 (31.0-37.0) g/dL RDW 13.1 (11.5-15.5) % Plt Count 73 L (150-450) k/uL Estimated Plt Count (Adequate) MPV 10.5 Absolute Nucleated RBC % Neutrophils % 80 % Neutrophils % (Manual) % Lymphocytes % 14 % Lymphocytes % (Manual) % Monocytes % 4 % Monocytes % (Manual) % Eosinophils % 0 % Basophils % 0 % Basophils % (Manual) % Neutrophils # 12.4 H (1.3-7.7) k/uL Neutrophils # (Manual) (1.80-7.70) X 10*3/uL Lymphocytes # 2.2 (1.0-4.8) k/uL Lymphocytes # (Manual) (0.90-5.00) X 10*3/uL Monocytes # 0.6 (0-1.0) k/uL Monocytes # (Manual) (0.20-1.00) X 10*3/uL Eosinophils # 0.0 (0-0.7) k/uL Eosinophils # (Manual) (0.04-0.35) X 10*3/uL Basophils # 0.0 (0-0.2) k/uL Basophils # (Manual) (0.00-0.10) X 10*3/uL NRBC/100 WBC Diff (0.00-0.01) X 10*3/uL Manual Slide Review Performed Immature Plt Fraction (1.1-6.1) % RBC Morphology (Normal) PT 11.1 (9.0-12.0) sec INR 1.1 (<1.2) APTT 29.6 (22.0-30.0) sec Sodium 140 (137-145) mmol/L Potassium 3.9 (3.5-5.1) mmol/L Chloride 111 H (98-107) mmol/L Carbon Dioxide 16 L (22-30) mmol/L Anion Gap 13 mmol/L BUN 52 H (9-20) mg/dL Creatinine 1.99 H (0.66-1.25) mg/dL Est GFR (CKD-EPI) (>=60) Est GFR (CKD-EPI)AfAm 37 (>60 ml/min/1.73 sqM) Est GFR (CKD-EPI)NonAf 32 (>60 ml/min/1.73 sqM) BUN/Creatinine Ratio (12.00-20.00) Ratio Glucose 157 H (74-99) mg/dL Lactic Ac Sepsis Rflx Plasma Lactic Acid Jonh (0.7-2.0) mmol/L Calcium 9.0 (8.4-10.2) mg/dL Phosphorus 2.8 (2.5-4.5) mg/dL Magnesium 1.8 (1.6-2.3) mg/dL Total Bilirubin 1.9 H (0.2-1.3) mg/dL AST 113 H (17-59) U/L ALT 40 (4-49) U/L Alkaline Phosphatase 93 (38-126) U/L Creatine Kinase (55-170) U/L Troponin I (0.000-0.034) ng/mL Total Protein 6.3 (6.3-8.2) g/dL Albumin 3.2 L (3.5-5.0) g/dL Globulin (1.6-3.3) d/dL Albumin/Globulin Ratio (1.60-3.17) Ratio TSH 1.930 (0.465-4.680) mIU/L Urine Color Urine Appearance (Clear) Urine pH (5.0-8.0) Ur Specific [place] (1.001-1.035) Urine Protein (Negative) Urine Glucose (UA) (Negative) Urine Ketones (Negative) Urine Blood (Negative) Urine Nitrite (Negative) Urine Bilirubin (Negative) Urine Urobilinogen (<2.0) mg/dL Ur Leukocyte Esterase (Negative) Urine RBC (0-5) /hpf Urine WBC (0-5) /hpf Urine Bacteria (None) /hpf Hyaline Casts (0-2) /lpf Urine Mucus (None) /hpf Tacrolimus (5.0-20.0) ng/mL 05/25/23 05/25/23 05/25/23 Range/Units 17:46 17:46 18:23 WBC (3.8-10.6) k/uL RBC (4.30-5.90) m/uL Hgb (13.0-17.5) gm/dL Hct (39.0-53.0) % MCV (80.0-100.0) fL MCH (25.0-35.0) pg MCHC (31.0-37.0) g/dL RDW (11.5-15.5) % Plt Count (150-450) k/uL Estimated Plt Count (Adequate) MPV Absolute Nucleated RBC % Neutrophils % % Neutrophils % (Manual) % Lymphocytes % % Lymphocytes % (Manual) % Monocytes % % Monocytes % (Manual) % Eosinophils % % Basophils % % Basophils % (Manual) % Neutrophils # (1.3-7.7) k/uL Neutrophils # (Manual) (1.80-7.70) X 10*3/uL Lymphocytes # (1.0-4.8) k/uL Lymphocytes # (Manual) (0.90-5.00) X 10*3/uL Monocytes # (0-1.0) k/uL Monocytes # (Manual) (0.20-1.00) X 10*3/uL Eosinophils # (0-0.7) k/uL Eosinophils # (Manual) (0.04-0.35) X 10*3/uL Basophils # (0-0.2) k/uL Basophils # (Manual) (0.00-0.10) X 10*3/uL NRBC/100 WBC Diff (0.00-0.01) X 10*3/uL Manual Slide Review Immature Plt Fraction (1.1-6.1) % RBC Morphology (Normal) PT (9.0-12.0) sec INR (<1.2) APTT (22.0-30.0) sec Sodium (137-145) mmol/L Potassium (3.5-5.1) mmol/L Chloride (98-107) mmol/L Carbon Dioxide (22-30) mmol/L Anion Gap mmol/L BUN (9-20) mg/dL Creatinine (0.66-1.25) mg/dL Est GFR (CKD-EPI) (>=60) Est GFR (CKD-EPI)AfAm (>60 ml/min/1.73 sqM) Est GFR (CKD-EPI)NonAf (>60 ml/min/1.73 sqM) BUN/Creatinine Ratio (12.00-20.00) Ratio Glucose (74-99) mg/dL Lactic Ac Sepsis Rflx Plasma Lactic Acid Jonh 2.4 H* (0.7-2.0) mmol/L Calcium (8.4-10.2) mg/dL Phosphorus (2.5-4.5) mg/dL Magnesium (1.6-2.3) mg/dL Total Bilirubin (0.2-1.3) mg/dL AST (17-59) U/L ALT (4-49) U/L Alkaline Phosphatase (38-126) U/L Creatine Kinase (55-170) U/L Troponin I 0.016 (0.000-0.034) ng/mL Total Protein (6.3-8.2) g/dL Albumin (3.5-5.0) g/dL Globulin (1.6-3.3) d/dL Albumin/Globulin Ratio (1.60-3.17) Ratio TSH (0.465-4.680) mIU/L Urine Color Light Red Urine Appearance Clear (Clear) Urine pH 5.5 (5.0-8.0) Ur Specific [place] 1.019 (1.001-1.035) Urine Protein 1+ H (Negative) Urine Glucose (UA) Negative (Negative) Urine Ketones 1+ H (Negative) Urine Blood Moderate H (Negative) Urine Nitrite Negative (Negative) Urine Bilirubin Negative (Negative) Urine Urobilinogen <2.0 (<2.0) mg/dL Ur Leukocyte Esterase Negative (Negative) Urine RBC 7 H (0-5) /hpf Urine WBC 3 (0-5) /hpf Urine Bacteria Rare H (None) /hpf Hyaline Casts 1 (0-2) /lpf Urine Mucus Rare H (None) /hpf Tacrolimus (5.0-20.0) ng/mL 05/25/23 05/25/23 05/25/23 Range/Units 18:25 18:33 20:47 WBC (3.8-10.6) k/uL RBC (4.30-5.90) m/uL Hgb (13.0-17.5) gm/dL Hct (39.0-53.0) % MCV (80.0-100.0) fL MCH (25.0-35.0) pg MCHC (31.0-37.0) g/dL RDW (11.5-15.5) % Plt Count (150-450) k/uL Estimated Plt Count (Adequate) MPV Absolute Nucleated RBC % Neutrophils % % Neutrophils % (Manual) % Lymphocytes % % Lymphocytes % (Manual) % Monocytes % % Monocytes % (Manual) % Eosinophils % % Basophils % % Basophils % (Manual) % Neutrophils # (1.3-7.7) k/uL Neutrophils # (Manual) (1.80-7.70) X 10*3/uL Lymphocytes # (1.0-4.8) k/uL Lymphocytes # (Manual) (0.90-5.00) X 10*3/uL Monocytes # (0-1.0) k/uL Monocytes # (Manual) (0.20-1.00) X 10*3/uL Eosinophils # (0-0.7) k/uL Eosinophils # (Manual) (0.04-0.35) X 10*3/uL Basophils # (0-0.2) k/uL Basophils # (Manual) (0.00-0.10) X 10*3/uL NRBC/100 WBC Diff (0.00-0.01) X 10*3/uL Manual Slide Review Immature Plt Fraction (1.1-6.1) % RBC Morphology (Normal) PT (9.0-12.0) sec INR (<1.2) APTT (22.0-30.0) sec Sodium (137-145) mmol/L Potassium (3.5-5.1) mmol/L Chloride (98-107) mmol/L Carbon Dioxide (22-30) mmol/L Anion Gap mmol/L BUN (9-20) mg/dL Creatinine (0.66-1.25) mg/dL Est GFR (CKD-EPI) (>=60) Est GFR (CKD-EPI)AfAm (>60 ml/min/1.73 sqM) Est GFR (CKD-EPI)NonAf (>60 ml/min/1.73 sqM) BUN/Creatinine Ratio (12.00-20.00) Ratio Glucose (74-99) mg/dL Lactic Ac Sepsis Rflx Y Plasma Lactic Acid Jonh 1.3 (0.7-2.0) mmol/L Calcium (8.4-10.2) mg/dL Phosphorus (2.5-4.5) mg/dL Magnesium (1.6-2.3) mg/dL Total Bilirubin (0.2-1.3) mg/dL AST (17-59) U/L ALT (4-49) U/L Alkaline Phosphatase (38-126) U/L Creatine Kinase 1497 H* (55-170) U/L Troponin I (0.000-0.034) ng/mL Total Protein (6.3-8.2) g/dL Albumin (3.5-5.0) g/dL Globulin (1.6-3.3) d/dL Albumin/Globulin Ratio (1.60-3.17) Ratio TSH (0.465-4.680) mIU/L Urine Color Urine Appearance (Clear) Urine pH (5.0-8.0) Ur Specific [place] (1.001-1.035) Urine Protein (Negative) Urine Glucose (UA) (Negative) Urine Ketones (Negative) Urine Blood (Negative) Urine Nitrite (Negative) Urine Bilirubin (Negative) Urine Urobilinogen (<2.0) mg/dL Ur Leukocyte Esterase (Negative) Urine RBC (0-5) /hpf Urine WBC (0-5) /hpf Urine Bacteria (None) /hpf Hyaline Casts (0-2) /lpf Urine Mucus (None) /hpf Tacrolimus (5.0-20.0) ng/mL 05/25/23 05/26/23 05/26/23 Range/Units 21:41 07:24 07:24 WBC 8.51 (3.8-10.6) k/uL RBC 3.58 L (4.30-5.90) m/uL Hgb 12.0 L (13.0-17.5) gm/dL Hct 35.0 L (39.0-53.0) % MCV 97.8 H (80.0-100.0) fL MCH 33.5 H (25.0-35.0) pg MCHC 34.3 (31.0-37.0) g/dL RDW 13.5 (11.5-15.5) % Plt Count 57 L (150-450) k/uL Estimated Plt Count Decreased (Adequate) MPV 10.9 Absolute Nucleated RBC 0 % Neutrophils % % Neutrophils % (Manual) 84 % Lymphocytes % % Lymphocytes % (Manual) 11 % Monocytes % % Monocytes % (Manual) 5 % Eosinophils % % Basophils % % Basophils % (Manual) 0 % Neutrophils # (1.3-7.7) k/uL Neutrophils # (Manual) 7.15 (1.80-7.70) X 10*3/uL Lymphocytes # (1.0-4.8) k/uL Lymphocytes # (Manual) 0.94 (0.90-5.00) X 10*3/uL Monocytes # (0-1.0) k/uL Monocytes # (Manual) 0.43 (0.20-1.00) X 10*3/uL Eosinophils # (0-0.7) k/uL Eosinophils # (Manual) 0 L (0.04-0.35) X 10*3/uL Basophils # (0-0.2) k/uL Basophils # (Manual) 0 (0.00-0.10) X 10*3/uL NRBC/100 WBC Diff 0 (0.00-0.01) X 10*3/uL Manual Slide Review Man and Morph Immature Plt Fraction 6.5 H (1.1-6.1) % RBC Morphology Normal (Normal) PT (9.0-12.0) sec INR (<1.2) APTT (22.0-30.0) sec Sodium 146 H (137-145) mmol/L Potassium 3.8 (3.5-5.1) mmol/L Chloride 116 H (98-107) mmol/L Carbon Dioxide 18.1 L (22-30) mmol/L Anion Gap 11.90 mmol/L BUN 49.4 H (9-20) mg/dL Creatinine 1.6 H (0.66-1.25) mg/dL Est GFR (CKD-EPI) 44 L (>=60) Est GFR (CKD-EPI)AfAm (>60 ml/min/1.73 sqM) Est GFR (CKD-EPI)NonAf (>60 ml/min/1.73 sqM) BUN/Creatinine Ratio 30.88 H (12.00-20.00) Ratio Glucose 134 H (74-99) mg/dL Lactic Ac Sepsis Rflx Plasma Lactic Acid Jonh (0.7-2.0) mmol/L Calcium 8.7 (8.4-10.2) mg/dL Phosphorus 2.5 (2.5-4.5) mg/dL Magnesium 2.0 (1.6-2.3) mg/dL Total Bilirubin 1.2 (0.2-1.3) mg/dL AST 74 H (17-59) U/L ALT 35 (4-49) U/L Alkaline Phosphatase 79 (38-126) U/L Creatine Kinase 1128 H* (55-170) U/L Troponin I (0.000-0.034) ng/mL Total Protein 5.4 L (6.3-8.2) g/dL Albumin 3.0 L (3.5-5.0) g/dL Globulin 2.4 (1.6-3.3) d/dL Albumin/Globulin Ratio 1.25 L (1.60-3.17) Ratio TSH (0.465-4.680) mIU/L Urine Color Urine Appearance (Clear) Urine pH (5.0-8.0) Ur Specific [place] (1.001-1.035) Urine Protein (Negative) Urine Glucose (UA) (Negative) Urine Ketones (Negative) Urine Blood (Negative) Urine Nitrite (Negative) Urine Bilirubin (Negative) Urine Urobilinogen (<2.0) mg/dL Ur Leukocyte Esterase (Negative) Urine RBC (0-5) /hpf Urine WBC (0-5) /hpf Urine Bacteria (None) /hpf Hyaline Casts (0-2) /lpf Urine Mucus (None) /hpf Tacrolimus (5.0-20.0) ng/mL 05/26/23 Range/Units 07:24 WBC (3.8-10.6) k/uL RBC (4.30-5.90) m/uL Hgb (13.0-17.5) gm/dL Hct (39.0-53.0) % MCV (80.0-100.0) fL MCH (25.0-35.0) pg MCHC (31.0-37.0) g/dL RDW (11.5-15.5) % Plt Count (150-450) k/uL Estimated Plt Count (Adequate) MPV Absolute Nucleated RBC % Neutrophils % % Neutrophils % (Manual) % Lymphocytes % % Lymphocytes % (Manual) % Monocytes % % Monocytes % (Manual) % Eosinophils % % Basophils % % Basophils % (Manual) % Neutrophils # (1.3-7.7) k/uL Neutrophils # (Manual) (1.80-7.70) X 10*3/uL Lymphocytes # (1.0-4.8) k/uL Lymphocytes # (Manual) (0.90-5.00) X 10*3/uL Monocytes # (0-1.0) k/uL Monocytes # (Manual) (0.20-1.00) X 10*3/uL Eosinophils # (0-0.7) k/uL Eosinophils # (Manual) (0.04-0.35) X 10*3/uL Basophils # (0-0.2) k/uL Basophils # (Manual) (0.00-0.10) X 10*3/uL NRBC/100 WBC Diff (0.00-0.01) X 10*3/uL Manual Slide Review Immature Plt Fraction (1.1-6.1) % RBC Morphology (Normal) PT (9.0-12.0) sec INR (<1.2) APTT (22.0-30.0) sec Sodium (137-145) mmol/L Potassium (3.5-5.1) mmol/L Chloride (98-107) mmol/L Carbon Dioxide (22-30) mmol/L Anion Gap mmol/L BUN (9-20) mg/dL Creatinine (0.66-1.25) mg/dL Est GFR (CKD-EPI) (>=60) Est GFR (CKD-EPI)AfAm (>60 ml/min/1.73 sqM) Est GFR (CKD-EPI)NonAf (>60 ml/min/1.73 sqM) BUN/Creatinine Ratio (12.00-20.00) Ratio Glucose (74-99) mg/dL Lactic Ac Sepsis Rflx Plasma Lactic Acid Jonh (0.7-2.0) mmol/L Calcium (8.4-10.2) mg/dL Phosphorus (2.5-4.5) mg/dL Magnesium (1.6-2.3) mg/dL Total Bilirubin (0.2-1.3) mg/dL AST (17-59) U/L ALT (4-49) U/L Alkaline Phosphatase (38-126) U/L Creatine Kinase (55-170) U/L Troponin I (0.000-0.034) ng/mL Total Protein (6.3-8.2) g/dL Albumin (3.5-5.0) g/dL Globulin (1.6-3.3) d/dL Albumin/Globulin Ratio (1.60-3.17) Ratio TSH (0.465-4.680) mIU/L Urine Color Urine Appearance (Clear) Urine pH (5.0-8.0) Ur Specific [place] (1.001-1.035) Urine Protein (Negative) Urine Glucose (UA) (Negative) Urine Ketones (Negative) Urine Blood (Negative) Urine Nitrite (Negative) Urine Bilirubin (Negative) Urine Urobilinogen (<2.0) mg/dL Ur Leukocyte Esterase (Negative) Urine RBC (0-5) /hpf Urine WBC (0-5) /hpf Urine Bacteria (None) /hpf Hyaline Casts (0-2) /lpf Urine Mucus (None) /hpf Tacrolimus 2.2 L (5.0-20.0) ng/mL - EKG Data -: EKG Interpreted by Me - Radiology Data Radiology results: report reviewed (CT brain C-spine negative for acute disease, x-ray chest and pelvis x-ray negative for acute disease), image reviewed Disposition Clinical Impression: Fall, Weakness, Rhabdomyolysis Disposition: ADMITTED IP TO THIS [facility] Condition: Stable Is patient prescribed a controlled substance at d/c from ED?: No Time of Disposition: 20:30
[2023-05-25 18:15] LABS: Basophils % (A) 0 %; Eosinophils % (A) 0 %; HCT 28.5 % (39.0-53.0); HGB 10.2 gm/dL (13.0-17.5); Lymphocytes # (A) 2.2 k/uL (1.0-4.8); Lymphocytes % (A) 14 %; MCH 34.5 pg (25.0-35.0); MCHC 35.9 g/dL (31.0-37.0); MCV 96.1 fL (80.0-100.0); Mean Platelet Volume 10.5; Monocytes # (A) 0.6 k/uL (0-1.0); Monocytes % (A) 4 %; Neutrophils # (A) 12.4 k/uL (1.3-7.7); Neutrophils % (A) 80 %; RBC 2.97 m/uL (4.30-5.90); RDW 13.1 % (11.5-15.5); WBC 15.5 k/uL (3.8-10.6)
[2023-05-25 18:28] LABS: ALT 40 U/L (4-49); AST 113 U/L (17-59); African American GFR (CKD) 37 (>60 ml/min/1.73 sqM); Albumin 3.2 g/dL (3.5-5.0); Alkaline Phosphatase 93 U/L (38-126); Anion Gap 13 mmol/L; Blood Urea Nitrogen 52 mg/dL (9-20); Carbon Dioxide 16 mmol/L (22-30); Chloride 111 mmol/L (98-107); Glucose 157 mg/dL (74-99); Magnesium 1.8 mg/dL (1.6-2.3); Non-African American GFR(CKD) 32 (>60 ml/min/1.73 sqM); Phosphorus 2.8 mg/dL (2.5-4.5); Potassium 3.9 mmol/L (3.5-5.1); Sodium 140 mmol/L (137-145); Total Bilirubin 1.9 mg/dL (0.2-1.3); Total Protein 6.3 g/dL (6.3-8.2)
[2023-05-25 18:41] LABS: INR 1.1 (<1.2); Partial Thromboplastin Time 29.6 sec (22.0-30.0); Prothrombin Time 11.1 sec (9.0-12.0)
[2023-05-25 18:54] LABS: Appearance,Urine Clear (Clear); Bacteria,Urine Rare /hpf; Bilirubin,Urine Negative (Negative); Blood,Urine Moderate (Negative); Color,Urine Light Red; Glucose,Urine (UA) Negative (Negative); Hyaline Casts,Urine 1 /lpf (0-2); Ketones,Urine 1+ (Negative); Leukocyte Esterase,Urine Negative (Negative); Mucus,Urine Rare /hpf; Nitrite,Urine Negative (Negative); PH, Urine 5.5 (5.0-8.0); Protein,Urine 1+ (Negative); RBC,Urine 7 /hpf (0-5); Specific Gravity,Urine 1.019 (1.001-1.035); Urobilinogen,Urine <2.0 mg/dL (<2.0); WBC,Urine 3 /hpf (0-5)
[2023-05-25 19:01] LABS: Platelet Count 73 k/uL (150-450)
--- NOTE | 2023-05-25 19:27 | CT ---
EXAMINATION TYPE: CT brain cspine wo con DATE OF EXAM: 05/25/2023 COMPARISON: 03/24/2023 HISTORY: pain after fall. ams CT DLP: 1436.2 mGycm. Automated Exposure Control for Dose Reduction was Utilized. TECHNIQUE: CT scan of the head and cervical spine are performed without contrast. FINDINGS: There is no acute intracranial hemorrhage, mass effect, or midline shift identified. The v entricles and sulci are within normal limits in size. The globes are intact and the visualized sinus es are clear. Cervical spine is visualized in its entirety from C1 through upper thoracic levels and demonstrates s atisfactory alignment without evidence of acute fracture or dislocation. 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 Prevertebral soft tissue appears within normal limits. The C1-C2 articulation is unremarkable. IMPRESSION: 1. There is no acute fracture or dislocation evident in the cervical spine. 2. No acute intracranial hemorrhage, mass effect, or midline shift is seen.
--- NOTE | 2023-05-25 19:37 | XR ---
EXAMINATION TYPE: XR chest 1V DATE OF EXAM: 05/25/2023 7:23 PM COMPARISON: Chest radiographs from 03/24/2023 TECHNIQUE: XR chest 1V Frontal view of the chest. CLINICAL INDICATION:Male, 77 years old with history of fall; FINDINGS: Lungs/Pleura: There is no evidence of pleural effusion, focal consolidation, or pneumothorax. Pulmonary vascularity: Unremarkable. Heart/mediastinum: Cardiomediastinal silhouette is prominent in size. Musculoskeletal: No acute osseous pathology. Midline sternotomy wires are noted and stable. The secon d superior sternal wire is again fractured. IMPRESSION: No acute cardiopulmonary disease/process.
--- NOTE | 2023-05-25 19:39 | XR ---
EXAMINATION TYPE: XR pelvis AP view DATE OF EXAM: 05/25/2023 7:23 PM INDICATION: Patient age:Male; 77 years old; Reason for study: fall; [facility]. COMPARISON: Pelvic radiograph 03/24/2023, CT chest abdomen pelvis 03/24/2023 TECHNIQUE: The pelvis was examined in a single projection. FINDINGS: There is no evidence of fracture or dislocation. There is no soft tissue abnormality. Left -sided pelvic phleboliths. Multilevel degenerative changes of the lower spine. Surgical clips in the right inguinal region. 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 IMPRESSION: No acute osseous pathology.
[2023-05-25] MEDS ORDERED: MORPHINE SULFATE 4 MG/ML SYRINGE IV PRN (20:29)
[2023-05-25] MEDS ORDERED: NALOXONE 0.4 MG/ML 1 ML VIAL IV PRN (20:29)
[2023-05-25] MEDS ORDERED: ONDANSETRON 4 MG/2 ML VIAL IVP PRN (20:29)
[2023-05-25] MEDS: SODIUM CHLORIDE 0.9% 1,000 ML IV SCH (20:59)
[2023-05-26] MEDS ORDERED: ACETAMINOPHEN TAB 500 MG TAB PO PRN (00:14)
[2023-05-26] MEDS ORDERED: VANCOMYCIN IV PER PHARMACY 1 EACH MISC MISCELLANE PRN (00:16)
[2023-05-26] MEDS ORDERED: VANCOMYCIN 1,500 MG in SODIUM CHLORIDE 0.9% 500 ML 500 ML IVPB STA (00:22)
--- NOTE | 2023-05-26 00:24 | P.HPIM ---
History of Present Illness H&P Date: 05/25/23 Chief Complaint: found on the floor soiled confused 77-year-old male with history of heart transplant He is coming in today after being found confused soiled with feces and urine at home. Last time known well was Monday night been missing all Monday and day he was not answering his well checks for cough eventually his friend went to check on him and found him down on the floor confused behind his bedroom door he was awake but confused. She immediately notified him and was brought to the hospital Before that up and Monday this patient is living alone he is able to drive he meets with friends on regular basis for thinners and lunches, he has history of DVT back in March for which she takes Eliquis. He has been on Eliquis even before that event for unknown reason. Patient has history of heart transplant he is on Prograf and prednisone. No other history is available Patient is awake but doesn't provide much meaningful history he doesn't remember anything doesn't know what happened to him he has no complaints at this time except some pain in his left leg He denies any tobacco smoking heavy alcohol or illicit drugs review of systems Pertinent positives as noted in HPI. All other systems were reviewed and are negative on exam Constitutional: No acute distress, cooperative Eyes: Anicteric sclerae, moist conjunctiva, Pupils equal round reactive to light ENMT: NC/AT Oropharynx clear, no erythema, or exudates Neck: Supple, no masses, or JVD No carotid bruits No thyromegaly Lungs: Clear to auscultation Clear to percussion Normal respiratory effort, no accessory muscle use Cardiovascular: Heart regular in rate and rhythm, No murmurs, gallops, or rubs Left lower extremity swelling over the leg Abdominal: Soft Nontender, no guarding, rebound or rigidity Abdomen moving with respiration Normoactive bowel sounds No hepatomegaly, No splenomegaly No palpable mass No abdominal wall hernia noted Skin: Erythema with induration and warmth to touch over the left leg entirely tender no drainage Extremities: No digital cyanosis No clubbing Pedal pulses intact and symmetrical Radial pulses intact and symmetrical No calf tenderness Psychiatric: Alert and oriented to person, place Neuro Muscles Strength 4/5 in all 4 extremities Sensation to light touch grossly present throughout Cranial nerves II-XII grossly intact Lymphatics: no palpable cervical or supraclavicular lymph nodes Past Medical History Past Medical History: Heart Failure, Deep Vein Thrombosis (DVT), Hearing Disorder / Deafness History of Any Multi-Drug Resistant Organisms: None Reported Past Surgical History: Cholecystectomy, Heart Catheterization Additional Past Surgical History / Comment(s): heart transplant 2010. Heart Catheterization --[facility] Past Anesthesia/Blood Transfusion Reactions: No Reported Reaction Past Psychological History: No Psychological Hx Reported Smoking Status: Never smoker Past Alcohol Use History: None Reported Past Drug Use History: None Reported - Past Family History Father Family Medical History: Congestive Heart Failure (CHF), Renal Disease Mother Family Medical History: Unable to Obtain Medications and Allergies Home Medications Medication Instructions Recorded Confirmed Type Ascorbic Acid [Vitamin C] 500 mg PO BID 06/23/19 05/25/23 History Aspirin EC [Ecotrin Low Dose] 81 mg PO DAILY 06/23/19 05/25/23 History Furosemide [Lasix] 40 mg PO DAILY 06/23/19 05/25/23 History Omeprazole 20 mg PO DAILY 06/23/19 05/25/23 History Pravastatin Sodium [Pravachol] 20 mg PO HS 06/23/19 05/25/23 History Tacrolimus [Prograf] 1 mg PO BID 06/23/19 05/25/23 History Vitamin E (Dl,Tocopheryl Acet) 400 unit PO BID 06/23/19 05/25/23 History [Vitamin E (400 Iu = 180 mg)] predniSONE 5 mg PO DAILY 06/23/19 05/25/23 History Apixaban [Eliquis] 5 mg PO BID 03/06/22 05/25/23 History carvediloL [Coreg] 6.25 mg PO BID 03/06/22 05/25/23 History Acetaminophen Tab [Tylenol Tab] 500 mg PO Q6H PRN 03/24/23 05/25/23 History Calcium Carbonate/Vitamin D3 1 cap PO TID 03/24/23 05/25/23 History [Calcium 600-Vit D3 62.5 Mcg (2,500 Iu)] Multivitamin With Folic Acid 400 1 tab PO DAILY 03/24/23 05/25/23 History Mcg Tab Allergies Allergy/AdvReac Type Severity Reaction Status Date / Time Iodinated Contrast Media Allergy Unknown Verified 05/25/23 17:29 Physical Exam Vitals: Vital Signs Temp Pulse Pulse Resp BP BP Pulse Ox 05/25/23 22:59 98.4 F 107 H 18 137/84 98 05/25/23 21:00 98.8 F 100 18 115/74 98 05/25/23 19:55 98.1 F 98 16 123/76 98 05/25/23 19:00 80 12 137/65 94 L 05/25/23 17:19 97.7 F 111 H 20 114/84 95 Intake and Output 05/25/23 05/25/23 05/26/23 14:59 22:59 06:59 Other: Weight 81.647 kg Results CBC & Chem 7: 05/25/23 17:46 05/25/23 17:46 Labs: Abnormal Lab Results - Last 24 Hours (Table) 05/25/23 05/25/23 05/25/23 Range/Units 17:46 17:46 17:46 WBC 15.5 H (3.8-10.6) k/uL RBC 2.97 L (4.30-5.90) m/uL Hgb 10.2 L (13.0-17.5) gm/dL Hct 28.5 L (39.0-53.0) % Plt Count 73 L (150-450) k/uL Neutrophils # 12.4 H (1.3-7.7) k/uL Chloride 111 H (98-107) mmol/L Carbon Dioxide 16 L (22-30) mmol/L BUN 52 H (9-20) mg/dL Creatinine 1.99 H (0.66-1.25) mg/dL Glucose 157 H (74-99) mg/dL Plasma Lactic Acid Jonh 2.4 H* (0.7-2.0) mmol/L Total Bilirubin 1.9 H (0.2-1.3) mg/dL AST 113 H (17-59) U/L Creatine Kinase (55-170) U/L Albumin 3.2 L (3.5-5.0) g/dL Urine Protein (Negative) Urine Ketones (Negative) Urine Blood (Negative) Urine RBC (0-5) /hpf Urine Bacteria (None) /hpf Urine Mucus (None) /hpf 05/25/23 05/25/23 Range/Units 18:23 18:25 WBC (3.8-10.6) k/uL RBC (4.30-5.90) m/uL Hgb (13.0-17.5) gm/dL Hct (39.0-53.0) % Plt Count (150-450) k/uL Neutrophils # (1.3-7.7) k/uL Chloride (98-107) mmol/L Carbon Dioxide (22-30) mmol/L BUN (9-20) mg/dL Creatinine (0.66-1.25) mg/dL Glucose (74-99) mg/dL Plasma Lactic Acid Jonh (0.7-2.0) mmol/L Total Bilirubin (0.2-1.3) mg/dL AST (17-59) U/L Creatine Kinase 1497 H* (55-170) U/L Albumin (3.5-5.0) g/dL Urine Protein 1+ H (Negative) Urine Ketones 1+ H (Negative) Urine Blood Moderate H (Negative) Urine RBC 7 H (0-5) /hpf Urine Bacteria Rare H (None) /hpf Urine Mucus Rare H (None) /hpf Thrombosis Risk Factor Assmnt - Choose All That Apply Any of the Below Risk Factors Present?: Yes Each Factor Represents 1 point: Swollen legs (current) Other Risk Factors: Yes Each Risk Factor Represents 3 Points: Age 75 years or older, History of DVT/PE Other congenital or acquired thrombophilia - If yes, enter type in comment: No Thrombosis Risk Factor Assessment Total Risk Factor Score: 7 Thrombosis Risk Factor Assessment Level: High Risk Assessment and Plan Assessment: 77-year-old male with history of cardiac transplant found confused and down on the floor soiled with feces and urine home last known well was 2 days ago I discussed the case with the adductor and accepted the admission for acute rhabdomyolysis with acute kidney injury with anticipated length of stay more than 2 midnights Acute metabolic encephalopathy improving CT of the brain no acute pathology To suspect to be secondary to underlying sepsis and cellulitis Neurochecks Fall precautions PT/OT evaluation Patient lives alone Rhabdomyolysis with acute knee injury secondary to being down on hard floor for unknown duration CPK level on 497 BUN 52 creatinine 1.99 potassium 3.9 sodium 140( Lactic acid 2.4 Patient initiated on IV fluid hydration with normal Carito received 1 L bolus Continue with this normal saline at 1 25 mL per hour Monitor CPK level Sepsis (tachycardia leukocytosis 15.5 )secondary to underlying cellulitis Follow-up cultures Vancomycin dosing by pharmacy Tylenol for fever [place] for pain control Chest x-ray no acute infiltrates History of heart transplant On Prograf and prednisone Continue prednisone Check Prograf level if within therapeutic range then resume Prograf History of DVT in March of this year Continue Eliquis Full code DVT prophylaxis on Eliquis for DVT
[2023-05-26] MEDS: APIXABAN 5 MG TAB PO SCH ×3 (00:34→20:27)
[2023-05-26] MEDS: carvediloL 6.25 MG TAB PO SCH ×3 (00:34→20:27)
[2023-05-26] MEDS: PANTOPRAZOLE 40 MG TABLET PO SCH (06:31)
[2023-05-26] MEDS: ASPIRIN 81 MG PO SCH (08:34)
[2023-05-26] MEDS: predniSONE 5 MG TAB PO SCH (08:35)
[2023-05-26] MEDS ORDERED: PANTOPRAZOLE 40 MG/10 ML VIAL IV SCH (09:00)
[2023-05-26] MEDS: TACROLIMUS 1 MG CAP PO SCH ×2 (11:12→20:27)
[2023-05-26] MEDS: SODIUM CHLORIDE 0.9% 1,000 ML IV SCH ×2 (11:13→11:29)
[2023-05-26 13:24] LABS: ALT 35 U/L (10-49); AST 74 U/L (14-35); Albumin/Globulin Ratio 1.25 Ratio (1.60-3.17); Alkaline Phosphatase 79 U/L (41-126); BUN/Creat Ratio 30.88 Ratio (12.00-20.00); Blood Urea Nitrogen 49.4 mg/dL (9.0-27.0); Calcium 8.7 mg/dL (8.7-10.3); Carbon Dioxide 18.1 mmol/L (21.6-31.8); Chloride 116 mmol/L (96-109); Globulin 2.4 d/dL (1.6-3.3); Glucose 134 mg/dL (70-110); Phosphorus 2.5 mg/dL (2.4-5.1); Potassium 3.8 mmol/L (3.5-5.5); Sodium 146 mmol/L (135-145); Total Bilirubin 1.2 mg/dL (0.3-1.2); Total Protein 5.4 d/dL (6.2-8.2)
[2023-05-26 13:54] LABS: Immature Platelet Fraction 6.5 % (1.1-6.1); MCH 33.5 pg (27.0-32.0); MCHC 34.3 d/dL (32.0-37.0); MCV 97.8 FL (80.0-97.0); Mean Platelet Volume 10.9 FL (9.5-12.2); NRBC Per 100 WBC 0 X 10*3/uL (0.00-0.01); Platelet Count 57 X 10*3/uL (140-440); RBC 3.58 X 10*6/uL (4.40-5.60); RDW 13.5 % (11.5-14.5); WBC 8.51 X 10*3/uL (4.50-10.00)
[2023-05-26 13:55] LABS: Basophils # (M) 0 X 10*3/uL (0.00-0.10); Eosinophils # (M) 0 X 10*3/uL (0.04-0.35); Lymphocytes # (M) 0.94 X 10*3/uL (0.90-5.00); Monocytes # (M) 0.43 X 10*3/uL (0.20-1.00); Neutrophils # (M) 7.15 X 10*3/uL (1.80-7.70); Neutrophils % (M) 84 %; RBC Morphology Normal (Normal)
--- NOTE | 2023-05-26 15:12 | P.PN ---
Subjective Progress Note Date: 05/26/23 Hospital course: Patient is a very pleasant 77-year-old male with a past medical history of heart transplant in 2010, chronic congestive heart failure, history of DVT on anticoagulation with Eliquis, hypertension, and hyperlipidemia. Patient follows with heart transplant team and instructor nurse out of [facility] Dr. Segundo Chaudhry. He presented to the emergency department on 05/25/23 for alteration in mental status after being found down on the ground during a well check. Patient was last known normal/seen on 05/23/23. Per documentation in chart, patient's family/friends were unable to get a hold of patient the entire day on Monday and his friend drove to his house to do a well check and found him lying on the floor behind his bedroom door soiled with feces and urine and very confused. EMS was called and patient was transported to the hospital. Upon arrival to the hospital patient remained slightly confused and was unable to recall events leading up to waking up on his bedroom floor.. He underwent full evaluation in the emergency department. Upon arrival to the facility patient was found to be tachycardic with heart rate 111, blood pressure 114/84, res piratory rate 20, temperature 97.7F, and SpO2 of 95% on room air. An EKG was completed showing sinus tachycardia at 113 bpm with runs of PVCs and a right bundle branch block. CT head and cervical spine was completed in radiology report reviewed stating CT head was negative for acute intracranial a bnormalities and CT cervical spine showed no acute fracture or dislocation evident. Chest x-ray completed negative for acute cardiopulmonary process. X- ray of pelvis was completed and was negative for acute osseous pathology or any other abnormalities at this time. Patient was admitted under our services for rhabdomyolysis and acute kidney injury as well as concerns for left lower extremity cellulitis. Physical exam: Vital signs reviewed and stable. General: Nontoxic, no distress and appears stated age. Derm: Skin warm and dry, normal coloration for ethnicity. Head: Atraumatic, normocephalic and symmetric. Eyes: EOMs intact, no lid lag, and anicteric sclera Mouth: no lip lesions, mucus membranes moist Cardiovascular: regular rate and rhythm with normal S1S2, systolic murmur, pos itive posterior tibial pulses bilaterally, and cap refill < 2 seconds. Lungs: Respirations even, regular, and unlabored on room air. Lungs CTA bilaterally, no rhonchi, no rales, no wheezing, and no accessory muscle usage. Abdominal: soft, nontender to palpation, no guarding, no appreciable organo megaly Ext: Movement and sensation intact.. No gross muscle atrophy, no contractures. Left lower extremity with reddish/purplish discoloration extending from mid land wrapping around to parts of calf. Neuro: Speech clear, face symmetrical and CN II-XII grossly intact with no noted focal neuro deficits Psych: Alert and oriented to person, place, time, and situation. Appropriate and pleasant affect. Assessment and Plan of Care: Syncopal episode/fall of unclear etiology Acute rhabdomyolysis status post syncopal episode/fall and prolonged downtime (possibly 2 days) Acute kidney injury History of heart transplant in 2010 Chronic congestive heart failure of unknown type, pending echocardiogram results Hypertension Hyperlipidemia -Order placed for telemetry monitoring -Consult placed to cardiology -Echocardiogram to be completed -Fall precautions -Neuro checks -Orthostatic vitals -Continuation of IV hydration with lactated Ringer's at 100 mL per hour for treatment of acute kidney injury and rhabdomyolysis. -Patient on antirejection medications with Prograf and prednisone. Orders were placed to obtain stat tacrolimus level and pending these results patient to continue tacrolimus 1 mg twice daily and prednisone 5 mg daily. -Patient to continue cardiac medication regimen with Eliquis 5 mg twice a day, aspirin 81 mg daily, carvedilol 6.25 mg twice daily, and pravastatin 20 mg night ly. -Follow up on repeat morning CBC and BMP to continue to monitor closely for improvement in renal function. Cellulitis of left lower extremity Left lower extremity DVT -Left lower extremity with large area of reddish/purplish discoloration from mid land wrapping around to parts of Posterior calf. This finding is concerning for cellulitis, however patient reports this is also the leg of his recent DVT as well as the leg he was lying on when he was on the floor. -Patient was started on IV antibiotics with vancomycin 1500 mg every 24 hours. -Will also obtain left lower extremity Doppler to follow-up on previous diagnosis DVT. No need for arterial Doppler as patient has good pedal and posterior tibial pulses. -Patient to continue anticoagulation with Eliquis 5 mg twice daily. CODE STATUS: full code DVT prophylaxis: Eliquis Discussed with: Patient and RN Anticipated discharge date: Clinical course to determine Anticipated discharge place: Home Patient was seen independently by Nurse Pracitioner. This document was prepared using [employer] dictation software. Please allow for errors in can cleaner, while rare they do occur. Austin Espinoza NP rendered care for this patient independently, reviewed the findings and plan as documented in the note above. I did not physically speak with or examine the patient on this date. Objective - Vital Signs Vital signs: Vital Signs Temp 98.4 F 05/26/23 07:50 Pulse 94 05/26/23 07:50 Resp 19 05/26/23 07:50 BP 114/65 05/26/23 07:50 Pulse Ox 95 05/26/23 11:58 FiO2 Intake & Output 05/25/23 05/26/23 05/26/23 18:59 06:59 18:59 Intake Total 118 Output Total 200 Balance -200 118 Weight 81.647 kg 81.647 kg Intake: Oral 118 Output: Urine 200 Other: Voiding Method External Catheter External Catheter # Bowel Movements 1 - Labs CBC & Chem 7: 05/26/23 07:24 05/26/23 07:24 Labs: Abnormal Lab Results - Last 24 Hours (Table) 05/25/23 05/25/23 05/25/23 Range/Units 17:46 17:46 17:46 WBC 15.5 H (3.8-10.6) k/uL RBC 2.97 L (4.30-5.90) m/uL Hgb 10.2 L (13.0-17.5) gm/dL Hct 28.5 L (39.0-53.0) % MCV (80.0-97.0) FL MCH (27.0-32.0) pg Plt Count 73 L (150-450) k/uL Neutrophils # 12.4 H (1.3-7.7) k/uL Eosinophils # (Manual) (0.04-0.35) X 10*3/uL Immature Plt Fraction (1.1-6.1) % Sodium (135-145) mmol/L Chloride 111 H (98-107) mmol/L Carbon Dioxide 16 L (22-30) mmol/L BUN 52 H (9-20) mg/dL Creatinine 1.99 H (0.66-1.25) mg/dL Est GFR (CKD-EPI) (>=60) BUN/Creatinine Ratio (12.00-20.00) Ratio Glucose 157 H (74-99) mg/dL Plasma Lactic Acid Jonh 2.4 H* (0.7-2.0) mmol/L Total Bilirubin 1.9 H (0.2-1.3) mg/dL AST 113 H (17-59) U/L Creatine Kinase (55-170) U/L Total Protein (6.2-8.2) d/dL Albumin 3.2 L (3.5-5.0) g/dL Albumin/Globulin Ratio (1.60-3.17) Ratio Urine Protein (Negative) Urine Ketones (Negative) Urine Blood (Negative) Urine RBC (0-5) /hpf Urine Bacteria (None) /hpf Urine Mucus (None) /hpf 05/25/23 05/25/23 05/25/23 Range/Units 18:23 18:25 21:41 WBC (3.8-10.6) k/uL RBC (4.30-5.90) m/uL Hgb (13.0-17.5) gm/dL Hct (39.0-53.0) % MCV (80.0-97.0) FL MCH (27.0-32.0) pg Plt Count (150-450) k/uL Neutrophils # (1.3-7.7) k/uL Eosinophils # (Manual) (0.04-0.35) X 10*3/uL Immature Plt Fraction (1.1-6.1) % Sodium (135-145) mmol/L Chloride (98-107) mmol/L Carbon Dioxide (22-30) mmol/L BUN (9-20) mg/dL Creatinine (0.66-1.25) mg/dL Est GFR (CKD-EPI) (>=60) BUN/Creatinine Ratio (12.00-20.00) Ratio Glucose (74-99) mg/dL Plasma Lactic Acid Jonh (0.7-2.0) mmol/L Total Bilirubin (0.2-1.3) mg/dL AST (17-59) U/L Creatine Kinase 1497 H* 1128 H* (55-170) U/L Total Protein (6.2-8.2) d/dL Albumin (3.5-5.0) g/dL Albumin/Globulin Ratio (1.60-3.17) Ratio Urine Protein 1+ H (Negative) Urine Ketones 1+ H (Negative) Urine Blood Moderate H (Negative) Urine RBC 7 H (0-5) /hpf Urine Bacteria Rare H (None) /hpf Urine Mucus Rare H (None) /hpf 05/26/23 05/26/23 Range/Units 07:24 07:24 WBC (3.8-10.6) k/uL RBC 3.58 L (4.30-5.90) m/uL Hgb 12.0 L (13.0-17.5) gm/dL Hct 35.0 L (39.0-53.0) % MCV 97.8 H (80.0-97.0) FL MCH 33.5 H (27.0-32.0) pg Plt Count 57 L (150-450) k/uL Neutrophils # (1.3-7.7) k/uL Eosinophils # (Manual) 0 L (0.04-0.35) X 10*3/uL Immature Plt Fraction 6.5 H (1.1-6.1) % Sodium 146 H (135-145) mmol/L Chloride 116 H (98-107) mmol/L Carbon Dioxide 18.1 L (22-30) mmol/L BUN 49.4 H (9-20) mg/dL Creatinine 1.6 H (0.66-1.25) mg/dL Est GFR (CKD-EPI) 44 L (>=60) BUN/Creatinine Ratio 30.88 H (12.00-20.00) Ratio Glucose 134 H (74-99) mg/dL Plasma Lactic Acid Jonh (0.7-2.0) mmol/L Total Bilirubin (0.2-1.3) mg/dL AST 74 H (17-59) U/L Creatine Kinase (55-170) U/L Total Protein 5.4 L (6.2-8.2) d/dL Albumin 3.0 L (3.5-5.0) g/dL Albumin/Globulin Ratio 1.25 L (1.60-3.17) Ratio Urine Protein (Negative) Urine Ketones (Negative) Urine Blood (Negative) Urine RBC (0-5) /hpf Urine Bacteria (None) /hpf Urine Mucus (None) /hpf
[2023-05-26] MEDS: LACTATED RINGERS 1,000 ML IV SCH (15:19)
[2023-05-26] MEDS: PRAVASTATIN SODIUM 20 MG TAB PO SCH (20:27)
--- NOTE | 2023-05-26 20:52 | US ---
EXAMINATION TYPE: US venous doppler duplex LE LT DATE OF EXAM: 05/26/2023 8:03 PM COMPARISON: NONE CLINICAL INDICATION: Male, 77 years old with history of recent DVT in LLE, now with increased redness and swelling; DVT let leg found March 24. pt on blood thinners SIDE PERFORMED: Left TECHNIQUE: The lower extremity deep venous system is examined utilizing real time linear array sonog viri with graded compression, doppler sonography and color-flow sonography. VESSELS IMAGED: Common Femoral Vein Deep Femoral Vein Greater Saphenous Vein * Femoral Vein Popliteal Vein Small Saphenous Vein * Proximal Calf Veins (* superficial vessels) Left Leg: Positive for DVT Tortilla Maker notes: Distal popliteal vein shows chronic DVT adhered to wall IMPRESSION: There appears to be some chronic DVT along the wall of the lower popliteal vein. No occlusive DVT trina ntified down to the upper calf.
[2023-05-27] MEDS ORDERED: VANCOMYCIN 1,500 MG in SODIUM CHLORIDE 0.9% 500 ML 500 ML IVPB SCH ×2 (01:00→16:00)
[2023-05-27] MEDS: LACTATED RINGERS 1,000 ML IV SCH ×2 (01:25→19:56)
[2023-05-27] MEDS: PANTOPRAZOLE 40 MG TABLET PO SCH (06:12)
[2023-05-27] MEDS: APIXABAN 5 MG TAB PO SCH ×2 (08:25→19:50)
[2023-05-27] MEDS: ASPIRIN 81 MG PO SCH (08:25)
[2023-05-27] MEDS: carvediloL 6.25 MG TAB PO SCH ×2 (08:25→19:50)
[2023-05-27] MEDS: predniSONE 5 MG TAB PO SCH (08:25)
[2023-05-27] MEDS: TACROLIMUS 1 MG CAP PO SCH ×2 (08:26→19:51)
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
[2023-05-27 11:11] LABS: HCT 30.9 % (39.6-50.0); HGB 10.6 d/dL (13.0-17.0); Immature Platelet Fraction 6.2 % (1.1-6.1); MCH 33.5 pg (27.0-32.0); MCHC 34.3 d/dL (32.0-37.0); MCV 97.8 FL (80.0-97.0); Mean Platelet Volume 10.7 FL (9.5-12.2); NRBC Per 100 WBC 0 X 10*3/uL (0.00-0.01); Platelet Count 54 X 10*3/uL (140-440); RBC 3.16 X 10*6/uL (4.40-5.60); RDW 13.6 % (11.5-14.5); WBC 5.94 X 10*3/uL (4.50-10.00)
[2023-05-27 11:59] LABS: ALT 33 U/L (10-49); AST 51 U/L (14-35); Albumin/Globulin Ratio 1.43 Ratio (1.60-3.17); Alkaline Phosphatase 67 U/L (41-126); BUN/Creat Ratio 34.31 Ratio (12.00-20.00); Blood Urea Nitrogen 54.9 mg/dL (9.0-27.0); Calcium 8.8 mg/dL (8.7-10.3); Carbon Dioxide 19.1 mmol/L (21.6-31.8); Chloride 115 mmol/L (96-109); Globulin 2.1 d/dL (1.6-3.3); Glucose 111 mg/dL (70-110); Potassium 3.5 mmol/L (3.5-5.5); Sodium 144 mmol/L (135-145); Total Bilirubin 1.2 mg/dL (0.3-1.2); Total Protein 5.1 d/dL (6.2-8.2)
--- NOTE | 2023-05-27 12:51 | P.CRDCN ---
History of Present Illness Consult date: 05/27/23 Reason for Consult (text): Transplant patient, low blood pressure History of present illness: This is Oscar Glass NP, I'm dictating on behalf of Dr. Puckett's H&P and A&P The patient was interviewed and examined. HPI: Patient is a very pleasant 77-year-old male with a past medical history of heart transplant in 2010, chronic congestive heart failure, history of DVT on anticoagulation with Eliquis, hypertension, and hyperlipidemia. Patient follows with heart transplant team and department of mathematics chair at [facility] Dr. Segundo Arvizu. He presented to the emergency department on 05/25/2023 for alteration in mental status after being found down on the ground during a well check. Patient was last known normal seen on 05/23/2023. Per documentation in chart, patient's family/friends were unable to get a hold of the patient the entire day on Monday and his friend drove to his house to do well check and found him lying on the floor behind his bedroom door soiled with feces and urine and very confused. EMS was called and patient was transported to the hospital. Upon arrival to the hospital patient remained slightly confused and was unable to recall events leading up to waking up on his bedroom floor. He underwent full evaluation in the emergency department. Upon arrival to the facility patient was found to be tachycardic with a heart rate of 111. An EKG was completed showing sinus tachycardia at 113 bpm with runs of PVCs and a right bundle branch block. Cardiology was consulted due to the patient's history of heart transplant as well as a low blood pressure. This morning the patient reports that he is feeling better today. He does not have any memory of falling at home or how long he was on the ground. Darvin goncalvestalgregorio CLOTH WEAVER contacted the patient's transplant department of mathematics chair, and had a significant detailed discussion with him about the patient's current status. He is currently advising no adjustments on the patient's tacrolimus at this time and recommending continuing with 0.1 mg twice a day with repeat levels each morning. He is also requesting that when the patient stable for discharge to be discharged on 30 day event monitor with results sent to his office. ROS: [No fever, chills, or rigors] [no cough, phlegm, or expectoration] [no nausea, vomiting, or diarrhea] [no hematuria, dysuria] [no musculoskelatal complaints] [no strokes or seizures] [no skin lesions] EXAMINATION: GENERAL: Well-appearing, well-nourished and in no acute distress. NECK: Supple without JVD or thyromegaly. LUNGS: Breath sounds clear to auscultation bilaterally. Respiration equal and unlabored. No wheezes, rales or rhonchi. HEART: Regular rate and rhythm with a systolic murmur, no rubs or gallops. S1 and S2 heard. EXTREMITIES: Normal range of motion, no edema. No clubbing or cyanosis. Peripheral pulses intact and strong. REVIEW OF LABS, ECG & MEDICAL DATA: LABS: White count 5.9, hemoglobin 10.6, platelet 54, sodium 144, potassium 3.5, B1 54.9, creatinine 1.6, calcium 8.8, magnesium 2.0, creatinine kinase 209, tacrolimus level 2.2 EKG: Sinus tachycardia with right bundle branch block IMAGING: CT of the brain with C-spine dated 05/25/2023 demonstrates no acute fracture or dislocation evident in the cervical spine, and no acute intracranial hemorrhage, mass effect, or midline shift seen. Chest x-ray dated 05/25/2023 demonstrates no acute cardiopulmonary process. X-ray of the pelvis dated 05/25/2023 demonstrates no acute osseous pathology. Venous Doppler of the left lower extremity dated 05/26/2023 demonstrates left leg positive for DVT which appears chronic. VITALS: Temp 98.0, pulse 86, respirations 17, blood pressure 101/59, O2 saturation 96% on room air IMPRESSION: 1. Syncopal episode/fall of unclear etiology 2. Acute rhabdomyolysis 3. Acute kidney injury 4. History of heart transplant 2010 5. Chronic CHF 6. Hypertension 7. Hyperlipidemia 8. Left lower extremity DVT PLAN: Obtain echocardiogram. When patient is stable, place 30 day event monitor after discharge. Continue telemetry. Continue home cardiac medications. Continue Eliquis. Further recommendations based on patient's clinical course. Thank you for the consult and allowing us to participate in the care of this p atient. Past Medical History Past Medical History: Heart Failure, Deep Vein Thrombosis (DVT), Hearing Disorder / Deafness History of Any Multi-Drug Resistant Organisms: None Reported Past Surgical History: Cholecystectomy, Heart Catheterization Additional Past Surgical History / Comment(s): heart transplant 2010. Heart Catheterization 9-6-19 [facility] Past Anesthesia/Blood Transfusion Reactions: No Reported Reaction Past Psychological History: No Psychological Hx Reported Smoking Status: Never smoker Past Alcohol Use History: None Reported Past Drug Use History: None Reported - Past Family History Father Family Medical History: Congestive Heart Failure (CHF), Renal Disease Mother Family Medical History: Unable to Obtain Medications and Allergies Home Medications Medication Instructions Recorded Confirmed Type Ascorbic Acid [Vitamin C] 500 mg PO BID 06/23/19 05/25/23 History Aspirin EC [Ecotrin Low Dose] 81 mg PO DAILY 06/23/19 05/25/23 History Furosemide [Lasix] 40 mg PO DAILY 06/23/19 05/25/23 History Omeprazole 20 mg PO DAILY 06/23/19 05/25/23 History Pravastatin Sodium [Pravachol] 20 mg PO HS 06/23/19 05/25/23 History Tacrolimus [Prograf] 1 mg PO BID 06/23/19 05/25/23 History Vitamin E (Dl,Tocopheryl Acet) 400 unit PO BID 06/23/19 05/25/23 History [Vitamin E (400 Iu = 180 mg)] predniSONE 5 mg PO DAILY 06/23/19 05/25/23 History Apixaban [Eliquis] 5 mg PO BID 03/06/22 05/25/23 History carvediloL [Coreg] 6.25 mg PO BID 03/06/22 05/25/23 History Acetaminophen Tab [Tylenol Tab] 500 mg PO Q6H PRN 03/24/23 05/25/23 History Calcium Carbonate/Vitamin D3 1 cap PO TID 03/24/23 05/25/23 History [Calcium 600-Vit D3 62.5 Mcg (2,500 Iu)] Multivitamin With Folic Acid 400 1 tab PO DAILY 03/24/23 05/25/23 History Mcg Tab Allergies Allergy/AdvReac Type Severity Reaction Status Date / Time Iodinated Contrast Media Allergy Unknown Verified 05/25/23 17:29 Physical Exam Vitals: Vital Signs Temp Pulse Resp BP BP BP BP 05/27/23 08:15 05/27/23 06:40 98.0 F 86 17 101/59 05/27/23 00:45 97.9 F 89 18 94/53 05/26/23 18:55 98.1 F 92 18 103/62 05/26/23 17:06 85 92/51 91/56 05/26/23 17:05 85 102/65 05/26/23 14:13 98.1 F 93 17 94/59 BP Pulse Ox 05/27/23 08:15 96 05/27/23 06:40 96 05/27/23 00:45 98 05/26/23 18:55 97 05/26/23 17:06 93 L 05/26/23 17:05 97 05/26/23 14:13 85/51 95 Intake and Output 05/26/23 05/27/23 05/27/23 22:59 06:59 14:59 Intake Total 1400 Output Total 400 Balance 1400 -400 Intake: Intake, IV Titration 1400 Amount Lactated Ringers 1,000 ml 900 @ 100 mls/hr IV .Q10H ERIC Rx#:[id number] Vancomycin 1,500 mg In 500 Sodium Chloride 0.9% 500 ml 500 ml @ 167 mls/hr IVPB Q24H ERIC Rx#: [id number] Output: Urine 400 Other: # Voids 0 3 # Bowel Movements 1 Results 05/27/23 06:14 05/27/23 06:14 Cardiac Enzymes 05/26/23 05/27/23 Range/Units 07:24 06:14 AST 74 H 51 H (14-35) U/L CBC 05/26/23 05/27/23 Range/Units 07:24 06:14 WBC 8.51 5.94 (4.50-10.00) X 10*3/uL RBC 3.58 L 3.16 L (4.40-5.60) X 10*6/uL Hgb 12.0 L 10.6 L (13.0-17.0) d/dL Hct 35.0 L 30.9 L (39.6-50.0) % Plt Count 57 L 54 L (140-440) X 10*3/uL Comprehensive Metabolic Panel 05/26/23 05/27/23 Range/Units 07:24 06:14 Sodium 146 H 144 (135-145) mmol/L Potassium 3.8 3.5 (3.5-5.5) mmol/L Chloride 116 H 115 H (96-109) mmol/L Carbon Dioxide 18.1 L 19.1 L (21.6-31.8) mmol/L BUN 49.4 H 54.9 H (9.0-27.0) mg/dL Creatinine 1.6 H 1.6 H (0.6-1.5) mg/dL Glucose 134 H 111 H (70-110) mg/dL Calcium 8.7 8.8 (8.7-10.3) mg/dL AST 74 H 51 H (14-35) U/L ALT 35 33 (10-49) U/L Alkaline Phosphatase 79 67 (41-126) U/L Total Protein 5.4 L 5.1 L (6.2-8.2) d/dL Albumin 3.0 L 3.0 L (3.8-4.9) d/dL Current Medications Generic Name Dose Route Start Last Admin Trade Name Freq PRN Reason Stop Dose Admin Acetaminophen 500 mg 05/26/23 00:14 Acetaminophen Tab 500 Mg Tab PO Q6H PRN Pain or Fever > 100.5 Apixaban 5 mg 05/26/23 00:15 05/27/23 08:25 Apixaban 5 Mg Tab PO 5 mg BID ERIC Administration Protocol Aspirin 81 mg 05/26/23 09:00 05/27/23 08:25 Aspirin 81 Mg PO 81 mg DAILY ERIC Administration Carvedilol 6.25 mg 05/26/23 00:15 05/27/23 08:25 Carvedilol 6.25 Mg Tab PO 6.25 mg BID ERIC Administration Vancomycin HCl 1,500 mg/ 500 mls @ 167 mls/hr 05/27/23 01:00 05/27/23 01:21 Sodium Chloride IVPB 167 mls/hr Q24H ERIC Administration Lactated Ringer's 1,000 mls @ 100 mls/hr 05/26/23 15:15 05/27/23 01:25 Lactated Ringers IV Not Given .Q10H ERIC Morphine Sulfate 4 mg 05/25/23 20:29 Morphine Sulfate 4 Mg/Ml Syringe IV Q4HR PRN Severe Pain (Scale 7 to 10) Naloxone HCl 0.2 mg 05/25/23 20:29 Naloxone 0.4 Mg/Ml 1 Ml Vial IV Q2M PRN Opioid Reversal Ondansetron HCl 4 mg 05/25/23 20:29 Ondansetron 4 Mg/2 Ml Vial IVP Q8HR PRN Nausea And Vomiting Pantoprazole Sodium 40 mg 05/26/23 07:30 05/27/23 06:12 Pantoprazole 40 Mg Tablet PO 40 mg [id number] ERIC Administration Pravastatin Sodium 20 mg 05/26/23 21:00 05/26/23 20:27 Pravastatin Sodium 20 Mg Tab PO 20 mg HS ERIC Administration Prednisone 5 mg 05/26/23 09:00 05/27/23 08:25 Prednisone 5 Mg Tab PO 5 mg DAILY ERIC Administration Tacrolimus 1 mg 05/26/23 09:30 05/27/23 08:26 Tacrolimus 1 Mg Cap PO 1 mg BID ERIC Administration Intake and Output 05/26/23 05/27/23 05/27/23 22:59 06:59 14:59 Intake Total 1400 Output Total 400 Balance 1400 -400 Intake: Intake, IV Titration 1400 Amount Lactated Ringers 1,000 ml 900 @ 100 mls/hr IV .Q10H ERIC Rx#:[id number] Vancomycin 1,500 mg In 500 Sodium Chloride 0.9% 500 ml 500 ml @ 167 mls/hr IVPB Q24H [facility] Rx#: [id number] Output: Urine 400 Other: # Voids 0 3 # Bowel Movements 1 05/27/23 06:14 05/27/23 06:14
[2023-05-27] MEDS: PRAVASTATIN SODIUM 20 MG TAB PO SCH (19:50)
[2023-05-28] MEDS: PANTOPRAZOLE 40 MG TABLET PO SCH (06:26)
[2023-05-28] MEDS: TACROLIMUS 1 MG CAP PO SCH ×2 (08:18→19:33)
[2023-05-28] MEDS: APIXABAN 5 MG TAB PO SCH ×2 (08:18→19:32)
[2023-05-28] MEDS: predniSONE 5 MG TAB PO SCH (08:18)
[2023-05-28] MEDS: carvediloL 6.25 MG TAB PO SCH ×2 (08:18→19:33)
[2023-05-28] MEDS: ASPIRIN 81 MG PO SCH (08:18)
[2023-05-28 10:40] LABS: ALT 33 U/L (4-49); AST 43 U/L (17-59); African American GFR (CKD) 66 (>60 ml/min/1.73 sqM); Albumin 2.9 g/dL (3.5-5.0); Alkaline Phosphatase 75 U/L (38-126); Anion Gap 10 mmol/L; Blood Urea Nitrogen 42 mg/dL (9-20); Calcium 8.8 mg/dL (8.4-10.2); Carbon Dioxide 17 mmol/L (22-30); Chloride 115 mmol/L (98-107); Globulin 2.9 g/dL; Glucose 122 mg/dL (74-99); HCT 33.2 % (39.0-53.0); HGB 11.3 gm/dL (13.0-17.5); MCH 34.3 pg (25.0-35.0); MCHC 34.1 g/dL (31.0-37.0); MCV 100.4 fL (80.0-100.0); Magnesium 1.6 mg/dL (1.6-2.3); Mean Platelet Volume 9.9; Non-African American GFR(CKD) 57 (>60 ml/min/1.73 sqM); Potassium 3.5 mmol/L (3.5-5.1); RBC 3.31 m/uL (4.30-5.90); RDW 13.2 % (11.5-15.5); Sodium 142 mmol/L (137-145); Total Bilirubin 1.8 mg/dL (0.2-1.3); Total Protein 5.8 g/dL (6.3-8.2)
--- NOTE | 2023-05-28 10:49 | CA ---
Transthoracic Echo Report Name: Garry Ahumada Age: 77 Gender: M : 1945 Exam Date: 05/27/2023 10:04 Exam Location: [facility] Ht (in): 72 Wt (lb): 180 Ordering Physician: Austin Espinoza Attending/Referring Phys: Jig Operator Ila Pollack RDCS Procedure CPT: Indications: Evaluate structure and function, possible syncopal Cardiac Hx: Technical Quality: Fair Contrast 1: Total Dose (mL): Contrast 2: Total Dose (mL): MEASUREMENTS (Male / Female) Normal Values 2D ECHO LV Diastolic Diameter PLAX 4.8 cm 4.2 - 5.9 / 3.9 - 5.3 cm LV Systolic Diameter PLAX 3.0 cm IVS Diastolic Thickness 1.1 cm 0.6 - 1.0 / 0.6 - 0.9 cm LVPW Diastolic Thickness 1.2 cm 0.6 - 1.0 / 0.6 - 0.9 cm LV Relative Wall Thickness 0.5 RV Internal Dim ED PLAX 3.3 cm LA Volume 69.2 cm??? 18 - 58 / 22 - 52 cm??? M-MODE Aortic Root Diameter MM 3.6 cm LA Systolic Diameter MM 3.6 cm LA Ao Ratio MM 1.0 AV Cusp Separation MM 1.9 cm DOPPLER AV Peak Velocity 143.9 cm/s AV Peak Gradient 8.3 mmHg AV Mean Velocity 87.3 cm/s AV Mean Gradient 3.6 mmHg AV Velocity Time Integral 20.9 cm LVOT Peak Velocity 78.3 cm/s LVOT Peak Gradient 2.5 mmHg LVOT Velocity Time Integral 15.2 cm MV Area PHT 4.0 cm??? Mitral E Point Velocity 124.8 cm/s Mitral A Point Velocity 0.2 cm/s Mitral E to A Ratio 537.4 MV Deceleration Time 190.6 ms TR Peak Velocity 234.5 cm/s TR Peak Gradient 22.0 mmHg Right Ventricular Systolic Press 27.0 mmHg FINDINGS Left Ventricle S/P Heart transplant 2010. Mildly increased left ventricular wall thickness. Left ventricular cavity size normal. Normal left ventricular systolic function with no obvious regional wall motion abnormalities. Left ventricular ejection fraction is estimated at 55-60%. Right Ventricle Mildly enlarged right ventricle Normal right ventricular function. Right ventricular systolic pressure within normal limits. Right Atrium Normal right atrial size. Left Atrium Moderately increased left atrial volume. Mildly increased left atrial area. Mitral Valve Structurally normal mitral valve. No mitral stenosis, regurgitation or prolapse. Aortic Valve No aortic valve stenosis or regurgitation. Tricuspid Valve Structurally normal tricuspid valve. Mild tricuspid regurgitation. Pulmonic Valve Structurally normal pulmonic valve. Pericardium No pericardial effusion. Aorta Normal size aortic root and proximal ascending aorta. CONCLUSIONS Normal LV size and systolic function without wall motion abnormalities Right ventricle size appears mildly enlarged Previewed by: Dr. Steven Puckett MD (Electronically Signed) Final Date: 28 May 2023 10:49
[2023-05-28 10:52] LABS: Platelet Count 62 k/uL (150-450)
[2023-05-28] MEDS ORDERED: VANCOMYCIN 1,500 MG in SODIUM CHLORIDE 0.9% 500 ML 500 ML IVPB SCH (12:00)
--- NOTE | 2023-05-28 12:58 | P.PN ---
Subjective Progress Note Date: 05/28/23 This is Oscar Glass NP, I'm dictating on behalf of Dr. Puckett's H&P and A&P. Patient was interviewed and examined. Patient is a pleasant 77-year-old male presented to the hospital after a single episode and being down for a unknown amount of time. Patient continues to report that he has no recollection of why he went down or what was happening when he did go down. He does report that he may have not been eating as well as he should've been. He reports today that he is feeling okay. He is reporting some left leg pain. He otherwise denies chest pain, shortness of breath, and orthopnea. He has had no further syncopal episodes since admission. GENERAL: Well-appearing, well-nourished and in no acute distress. NECK: Supple without JVD or thyromegaly. LUNGS: Breath sounds clear to auscultation bilaterally. Respiration equal and unlabored. No wheezes, rales or rhonchi. HEART: Regular rate and rhythm without murmurs, rubs or gallops. S1 and S2 heard. EXTREMITIES: Normal range of motion, 1+ pitting edema in the left lower extremity. No clubbing or cyanosis. Peripheral pulses intact and strong. VITALS: Temp 99.1, pulse 86, respirations 18, blood pressure 135/70, O2 saturation 98% on room air TELEMETRY: Normal sinus rhythm LABS: White count 6.0, hemoglobin 11.3, platelets 62, sodium 142, potassium 3.5, BUN 42, creatinine 1.23, calcium 8.8, magnesium 1.6 IMPRESSION: 1. Syncopal episode/fall of unclear etiology 2. Acute rhabdomyolysis 3. Acute kidney injury 4. History of heart transplant 2010 5. Chronic CHF 6. Hypertension 7. Hyperlipidemia 8. Left lower extremity DVT PLAN: Echocardiogram demonstrates a left ventricular ejection fraction of 55-60% with a mildly enlarged right ventricle with normal function, normal right atrial size, moderately increased left atrial volume, structurally normal mitral valve no regurgitation or stenosis, no aortic valve stenosis or regurgitation, structurally normal tricuspid valve with mild tricuspid regurgitation, structura lly normal pulmonic valve, no pericardial effusion, normal size aortic root and proximal ascending aorta. It is unlikely the patient's syncopal episode was secondary to any cardiac structural abnormality. From a cardiology standpoint the patient is okay to discharge with close follow- ups with his transplant team and his primary care provider. Thank you for allowing us to participate in the care of this patient. Objective - Vital Signs Vital signs: Vital Signs Temp 99.1 F 05/28/23 06:35 Pulse 86 05/28/23 06:35 Resp 18 05/28/23 06:35 BP 135/70 05/28/23 06:35 Pulse Ox 98 05/28/23 06:35 FiO2 Intake & Output 05/27/23 05/28/23 05/28/23 18:59 06:59 18:59 Output Total 400 Balance -400 Output: Urine 400 Other: Voiding Method Urinal # Voids 3 1 # Bowel Movements 1 - Labs CBC & Chem 7: 05/28/23 08:59 05/28/23 08:59 Labs: Abnormal Lab Results - Last 24 Hours (Table) 05/28/23 05/28/23 Range/Units 08:59 08:59 RBC 3.31 L (4.30-5.90) m/uL Hgb 11.3 L (13.0-17.5) gm/dL Hct 33.2 L (39.0-53.0) % MCV 100.4 H (80.0-100.0) fL Plt Count 62 L (150-450) k/uL Chloride 115 H (98-107) mmol/L Carbon Dioxide 17 L (22-30) mmol/L BUN 42 H (9-20) mg/dL Glucose 122 H (74-99) mg/dL Total Bilirubin 1.8 H (0.2-1.3) mg/dL Total Protein 5.8 L (6.3-8.2) g/dL Albumin 2.9 L (3.5-5.0) g/dL Microbiology - Last 24 Hours (Table) 05/26/23 07:24 Blood Culture - Preliminary Blood
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
[2023-05-28] MEDS: PRAVASTATIN SODIUM 20 MG TAB PO SCH (19:33)
[2023-05-29] MEDS: PANTOPRAZOLE 40 MG TABLET PO SCH (05:54)
[2023-05-29 08:23] LABS: HCT 31.1 % (39.6-50.0); HGB 10.3 d/dL (13.0-17.0); Immature Platelet Fraction 6.2 % (1.1-6.1); MCH 33.3 pg (27.0-32.0); MCHC 33.1 d/dL (32.0-37.0); MCV 100.6 FL (80.0-97.0); Mean Platelet Volume 10.1 FL (9.5-12.2); NRBC Per 100 WBC 0 X 10*3/uL (0.00-0.01); Platelet Count 65 X 10*3/uL (140-440); RBC 3.09 X 10*6/uL (4.40-5.60); RDW 13.3 % (11.5-14.5); WBC 5.05 X 10*3/uL (4.50-10.00)
[2023-05-29] MEDS: predniSONE 5 MG TAB PO SCH (08:30)
[2023-05-29] MEDS: APIXABAN 5 MG TAB PO SCH ×2 (08:30→19:48)
[2023-05-29] MEDS: carvediloL 6.25 MG TAB PO SCH ×2 (08:30→19:48)
[2023-05-29] MEDS: TACROLIMUS 1 MG CAP PO SCH ×2 (08:30→19:48)
[2023-05-29] MEDS: ASPIRIN 81 MG PO SCH (08:30)
[2023-05-29 08:58] LABS: ALT 31 U/L (10-49); AST 30 U/L (14-35); Albumin 3.1 d/dL (3.8-4.9); Albumin/Globulin Ratio 1.41 Ratio (1.60-3.17); Alkaline Phosphatase 75 U/L (41-126); BUN/Creat Ratio 31.62 Ratio (12.00-20.00); Blood Urea Nitrogen 41.1 mg/dL (9.0-27.0); Calcium 8.9 mg/dL (8.7-10.3); Chloride 115 mmol/L (96-109); Globulin 2.2 d/dL (1.6-3.3); Glucose 108 mg/dL (70-110); Iron 28 UG/DL (65-175); Magnesium 1.5 mg/dL (1.5-2.4); Potassium 3.8 mmol/L (3.5-5.5); Sodium 145 mmol/L (135-145); Total Bilirubin 1.1 mg/dL (0.3-1.2); Total Iron Binding Capacity 209 UG/DL (228-460); Total Protein 5.3 d/dL (6.2-8.2)
--- NOTE | 2023-05-29 10:59 | P.PN ---
Subjective HISTORY OF PRESENT ILLNESS: Patient is a very pleasant 77-year-old male with a past medical history of heart transplant in 2010, chronic congestive heart failure, history of DVT on anticoagulation with Eliquis, hypertension, and hyperlipidemia. Patient follows with heart transplant team and cashier parking lot at [facility] Dr. Segundo Arvizu. He presented to the emergency department on 05/25/2023 for alteration in mental status after being found down on the ground during a well check. Patient was last known normal seen on 05/23/2023. Per documentation in chart, patient's family/friends were unable to get a hold of the patient the entire day on Monday and his friend drove to his house to do well check and found him lying on the floor behind his bedroom door soiled with feces and urine and very confused. EMS was called and patient was transported to the hospital. Upon arrival to the hospital patient remained slightly confused and was unable to recall events leading up to waking up on his bedroom floor. He underwent full evaluation in the emergency department. Upon arrival to the facility patient was found to be tachycardic with a heart rate of 111. An EKG was completed showing sinus tachycardia at 113 bpm with runs of PVCs and a right bundle branch block. Cardiology was consulted due to the patient's history of heart transplant as well as a low blood pressure. This morning the patient reports that he is feeling better today. He does not have any memory of falling at home or how long he was on the ground. Hospitalist SALESPERSON [employer] contacted the patient's transplant cashier parking lot, and had a si gnificant detailed discussion with him about the patient's current status. He is currently advising no adjustments on the patient's tacrolimus at this time and recommending continuing with 0.1 mg twice a day with repeat levels each morning. He is also requesting that when the patient stable for discharge to be discharged on 30 day event monitor with results sent to his office. LABS: White count 5.9, hemoglobin 10.6, platelet 54, sodium 144, potassium 3.5, B1 54.9, creatinine 1.6, calcium 8.8, magnesium 2.0, creatinine kinase 209, tacrolimus level 2.2 EKG: Sinus tachycardia with right bundle branch block IMAGING: CT of the brain with C-spine dated 05/25/2023 demonstrates no acute fracture or dislocation evident in the cervical spine, and no acute intracranial hemorrhage, mass effect, or midline shift seen. Chest x-ray dated 05/25/2023 demonstrates no acute cardiopulmonary process. X-ray of the pelvis dated 05/25/2023 demonstrates no acute osseous pathology. Venous Doppler of the left lower extremity dated 05/26/2023 demonstrates left leg positive for DVT which appears chronic. VITALS: Temp 98.0, pulse 86, respirations 17, blood pressure 101/59, O2 saturation 96% on room air ECHO: Echocardiogram demonstrates a left ventricular ejection fraction of 55-60% with a mildly enlarged right ventricle with normal function, normal right atrial size, moderately increased left atrial volume, structurally normal mitral valve no regurgitation or stenosis, no aortic valve stenosis or regurgitation, structurally normal tricuspid valve with mild tricuspid regurgitation, structurally normal pulmonic valve, no pericardial effusion, normal size aortic root and proximal ascending aorta. 05/29/2023 Patient examined this morning at the bedside. Patient denies chest pain or pressure. He denies shortness of breath. Vital signs are stable. PHYSICAL EXAM: VITAL SIGNS: Reviewed. GENERAL: Well-developed in no acute distress. NECK: Supple. No JVD or thyromegaly LUNGS: Respirations even and unlabored. Lungs essentially clear to auscultation bilaterally. HEART: Regular rate and rhythm. S1 and S2 heard. EXTREMITIES: Normal range of motion. No clubbing or cyanosis. Peripheral pulses intact. Left lower extremity with erythema and edema noted. ASSESSMENT: 1. Syncopal episode/fall of unclear etiology 2. Acute rhabdomyolysis 3. Acute kidney injury 4. History of heart transplant 2010 5. Chronic CHF with preserved EF 6. Hypertension 7. Hyperlipidemia 8. Left lower extremity DVT PLAN: Continue current cardiac medications Patient to receive 30 day event monitor at the time of discharge Patient to follow-up post discharge with his primary cashier parking lot and [place] Patient is currently stable from a cardiac standpoint Nurse practitioner note has been reviewed by physician. Signing provider agrees with the documented findings, assessment, and plan of care. Objective - Vital Signs Vital signs: Vital Signs Temp 98.9 F 05/29/23 06:57 Pulse 85 05/29/23 06:57 Resp 16 05/29/23 06:57 BP 127/67 05/29/23 06:57 Pulse Ox 97 05/29/23 06:57 FiO2 Intake & Output 05/28/23 05/29/2305/29/23 18:59 06:59 18:59 Output Total 200 Balance -200 Output: Urine 200 Other: Voiding Method Toilet Urinal Urinal # Voids 1 # Bowel Movements 1 - Labs CBC & Chem 7: 05/29/23 04:14 05/29/23 04:14 Labs: Abnormal Lab Results - Last 24 Hours (Table) 05/28/23 05/29/23 05/29/23 Range/Units 08:59 04:14 04:14 RBC 3.31 L 3.09 L (4.30-5.90) m/uL Hgb 11.3 L 10.3 L (13.0-17.5) gm/dL Hct 33.2 L 31.1 L (39.0-53.0) % MCV 100.4 H 100.6 H (80.0-100.0) fL MCH 33.3 H (27.0-32.0) pg Plt Count 62 L 65 L (150-450) k/uL Immature Plt Fraction 6.2 H (1.1-6.1) % Chloride 115 H (96-109) mmol/L BUN 41.1 H (9.0-27.0) mg/dL Est GFR (CKD-EPI) 57 L (>=60) BUN/Creatinine Ratio 31.62 H (12.00-20.00) Ratio Iron 28 L (65-175) UG/DL TIBC 209 L (228-460) UG/DL % Saturation 13.40 L (15.00-50.00) Transferrin 149.0 L (204.0-354.0) mg/dL Total Protein 5.3 L (6.2-8.2) d/dL Albumin 3.1 L (3.8-4.9) d/dL Albumin/Globulin Ratio 1.41 L (1.60-3.17) Ratio Vitamin B12 1221.0 H (200.0-944.0) pg/mL Microbiology - Last 24 Hours (Table) 05/26/23 07:24 Blood Culture - Preliminary Blood
[2023-05-29] MEDS: MAGNESIUM SULFATE-D5W PMX 1 GM in DEXTROSE/WATER 1 100ML.BAG IVPB SCH ×3 (11:44→14:20)
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
[2023-05-29] MEDS: SODIUM FERRIC GLUCONAT-SUCROSE 125 MG in SODIUM CHLORIDE 0.9% 100 ML IVPB SCH (17:34)
[2023-05-29] MEDS ORDERED: VANCOMYCIN TROUGH DUE 1 EACH MISC MISCELLANE ONE (19:00)
[2023-05-29] MEDS: PRAVASTATIN SODIUM 20 MG TAB PO SCH (19:48)
[2023-05-30] MEDS: HYDROcodone/APAP 5-325MG 1 EACH TAB PO PRN ×2 (04:08→10:00)
[2023-05-30] MEDS: PANTOPRAZOLE 40 MG TABLET PO SCH (06:06)
[2023-05-30 08:16] VITALS: BP 118/67; PULSE 97; RESP 14; TEMP 99.5
[2023-05-30] MEDS: APIXABAN 5 MG TAB PO SCH (09:49)
[2023-05-30] MEDS: ASPIRIN 81 MG PO SCH (09:49)
[2023-05-30] MEDS: TACROLIMUS 1 MG CAP PO SCH (09:49)
[2023-05-30] MEDS: predniSONE 5 MG TAB PO SCH (09:49)
[2023-05-30] MEDS: carvediloL 6.25 MG TAB PO SCH (09:49)
[2023-05-30] MEDS: SODIUM FERRIC GLUCONAT-SUCROSE 125 MG in SODIUM CHLORIDE 0.9% 100 ML IVPB SCH (09:49)
[2023-05-30 09:52] LABS: HCT 28.5 % (39.0-53.0); HGB 9.9 gm/dL (13.0-17.5); MCH 34.5 pg (25.0-35.0); MCHC 34.8 g/dL (31.0-37.0); MCV 99.1 fL (80.0-100.0); Mean Platelet Volume 9.6; RBC 2.87 m/uL (4.30-5.90); RDW 13.3 % (11.5-15.5); WBC 4.1 k/uL (3.8-10.6)
[2023-05-30 10:01] LABS: African American GFR (CKD) 65 (>60 ml/min/1.73 sqM); Blood Urea Nitrogen 37 mg/dL (9-20); Calcium 8.4 mg/dL (8.4-10.2); Carbon Dioxide 20 mmol/L (22-30); Glucose 125 mg/dL (74-99); Non-African American GFR(CKD) 57 (>60 ml/min/1.73 sqM); Potassium 3.7 mmol/L (3.5-5.1); Sodium 138 mmol/L (137-145)
[2023-05-30 10:12] LABS: Platelet Count 79 k/uL (150-450)
[2023-05-30 10:17] LABS: Anion Gap 5 mmol/L; Chloride 113 mmol/L (98-107)
--- NOTE | 2023-05-30 11:00 | P.PN ---
Subjective HISTORY OF PRESENT ILLNESS: Patient is a very pleasant 77-year-old male with a past medical history of heart transplant in 2010, chronic congestive heart failure, history of DVT on anticoagulation with Eliquis, hypertension, and hyperlipidemia. Patient follows with heart transplant team and wallpaper inspector at [facility] Dr. Segundo Arvizu. He presented to the emergency department on 05/25/2023 for alteration in mental status after being found down on the ground during a well check. Patient was last known normal seen on 05/23/2023. Per documentation in chart, patient's family/friends were unable to get a hold of the patient the entire day on Monday and his friend drove to his house to do well check and found him lying on the floor behind his bedroom door soiled with feces and urine and very confused. EMS was called and patient was transported to the hospital. Upon arrival to the hospital patient remained slightly confused and was unable to recall events leading up to waking up on his bedroom floor. He underwent full evaluation in the emergency department. Upon arrival to the facility patient was found to be tachycardic with a heart rate of 111. An EKG was completed showing sinus tachycardia at 113 bpm with runs of PVCs and a right bundle branch block. Cardiology was consulted due to the patient's history of heart transplant as well as a low blood pressure. This morning the patient reports that he is feeling better today. He does not have any memory of falling at home or how long he was on the ground. Hospitalist HYDRAULIC BARKER OPERATOR contacted the patient's transplant wallpaper inspector, and had a si gnificant detailed discussion with him about the patient's current status. He is currently advising no adjustments on the patient's tacrolimus at this time and recommending continuing with 0.1 mg twice a day with repeat levels each morning. He is also requesting that when the patient stable for discharge to be discharged on 30 day event monitor with results sent to his office. LABS: White count 5.9, hemoglobin 10.6, platelet 54, sodium 144, potassium 3.5, B1 54.9, creatinine 1.6, calcium 8.8, magnesium 2.0, creatinine kinase 209, tacrolimus level 2.2 EKG: Sinus tachycardia with right bundle branch block IMAGING: CT of the brain with C-spine dated 05/25/2023 demonstrates no acute fracture or dislocation evident in the cervical spine, and no acute intracranial hemorrhage, mass effect, or midline shift seen. Chest x-ray dated 05/25/2023 demonstrates no acute cardiopulmonary process. X-ray of the pelvis dated 05/25/2023 demonstrates no acute osseous pathology. Venous Doppler of the left lower extremity dated 05/26/2023 demonstrates left leg positive for DVT which appears chronic. VITALS: Temp 98.0, pulse 86, respirations 17, blood pressure 101/59, O2 saturation 96% on room air ECHO: Echocardiogram demonstrates a left ventricular ejection fraction of 55-60% with a mildly enlarged right ventricle with normal function, normal right atrial size, moderately increased left atrial volume, structurally normal mitral valve no regurgitation or stenosis, no aortic valve stenosis or regurgitation, structurally normal tricuspid valve with mild tricuspid regurgitation, structurally normal pulmonic valve, no pericardial effusion, normal size aortic root and proximal ascending aorta. 05/29/2023 Patient examined this morning at the bedside. Patient denies chest pain or pressure. He denies shortness of breath. Vital signs are stable. 05/30/2023 Patient examined this morning at the bedside. Patient denies chest pain or pressure. He denies shortness of breath. Vital signs are stable. Patient received his event monitor yesterday. PHYSICAL EXAM: VITAL SIGNS: Reviewed. GENERAL: Well-developed in no acute distress. NECK: Supple. No JVD or thyromegaly LUNGS: Respirations even and unlabored. Lungs essentially clear to auscultation bilaterally. HEART: Regular rate and rhythm. S1 and S2 heard. EXTREMITIES: Normal range of motion. No clubbing or cyanosis. Peripheral pulses intact. Left lower extremity with erythema and edema noted. ASSESSMENT: 1. Syncopal episode/fall of unclear etiology 2. Acute rhabdomyolysis 3. Acute kidney injury 4. History of heart transplant 2010 5. Chronic CHF with preserved EF 6. Hypertension 7. Hyperlipidemia 8. Left lower extremity DVT PLAN: Continue current cardiac medications Patient received 30 day event monitor yesterday Patient to follow-up post discharge with his primary wallpaper inspector in [place] Patient is currently stable from a cardiac standpoint Patient to be discharged pending result of his Prograf levels Nurse practitioner note has been reviewed by physician. Signing provider agrees with the documented findings, assessment, and plan of care. Objective - Vital Signs Vital signs: Vital Signs Temp 99.5 F 05/30/23 07:00 Pulse 97 05/30/23 07:00 Resp 14 05/30/23 07:00 BP 118/67 05/30/23 07:00 Pulse Ox 97 05/30/23 07:00 FiO2 Intake & Output 05/29/23 05/30/23 05/30/23 18:59 06:59 18:59 Intake Total 1080 Output Total 700 150 Balance 380 -150 Intake: Oral 1080 Output: Urine 700 150 Other: Voiding Method Toilet # Voids 2 1 # Bowel Movements 2 1 - Labs CBC & Chem 7: 05/30/23 09:12 05/30/23 09:12 Labs: Abnormal Lab Results - Last 24 Hours (Table) 05/30/23 05/30/23 Range/Units 09:12 09:12 RBC 2.87 L (4.30-5.90) m/uL Hgb 9.9 L (13.0-17.5) gm/dL Hct 28.5 L (39.0-53.0) % Plt Count 79 L (150-450) k/uL Chloride 113 H (98-107) mmol/L Carbon Dioxide 20 L (22-30) mmol/L BUN 37 H (9-20) mg/dL Glucose 125 H (74-99) mg/dL Microbiology - Last 24 Hours (Table) 05/26/23 07:24 Blood Culture - Preliminary Blood
--- NOTE | 2023-05-30 11:03 | P.DS ---
Providers Date of admission: 05/26/23 13:15 Expected date of discharge: 05/30/23 Attending physician: Margarita Spain MD Consults: 05/26/23 09:20 Consult Physician Routine Consulting Provider: Casa Vargas Consult Reason/Comments: poss syncopal episode vs fall, hx of heart transplant Do you want consulting provider notified?: Yes 05/27/23 12:35 Consult Physician Routine Consulting Provider: Steven Puckett Consult Reason/Comments: Heart Transplant Patient; Low blood pressure Do you want consulting provider notified?: Already Contacted Primary care physician: Physician Nonstaff Hospital Course: Discharge Diagnosis: Syncopal episode/fall of unclear etiology. EKG and telemetry monitoring showing frequent runs of PVCs. Patient had no noted episodes of arrhythmias during hospitalization. Echocardiogram completed showing an EF of 55-60% with mildly enlarged right ventricle and moderately increased left atrial volume with no other structural or valvular abnormalities. Discussed case with patient's primary transplant finger cobbler and patient was evaluated by Rowena cardiologrena burks. Patient discharged home on 30 day event monitor. Acute rhabdomyolysis status post syncopal episode/fall and prolonged downtime (possibly 2 days). Resolved after IV fluid hydration. Acute kidney injury. Resolved after IV fluid hydration. History of heart transplant in 2010. Upon arrival initial tacrolimus levels were low at 2.2, likely secondary to multiple missed doses of medications secondary to syncopal episode and prolonged downtime. Repeat levels pending. P er recommendations of transplant finger cobbler no adjustments were made to medication at this time and antirejection medications with tacrolimus 0.1 mg twice daily and prednisone 5 mg daily were resumed. Patient provided with prescription for repeat tacrolimus levels in 3 days. Pt otherwise to continue cardiac medication regimen with Eliquis 5 mg twice a day, aspirin 81 mg daily, carvedilol 6.25 mg twice daily, and pravastatin 20 mg nightly in addition to antirejection medications. Chronic diastolic congestive heart failure with preserved EF 55-60%. Patient instructed he may resume his Lasix tomorrow and educated on the importance of drinking fluids while taking this medication as this places him at higher risk for dehydration. Hyperlipidemia. Continue daily medication pravastatin 20 mg nightly. 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 Pt encouraged to continue anticoagulation with Eliquis 5mg BID and follow up outpatient with vascular surgery for f monitoring and management. GORDON bronson when out of bed. Small ulcer plantar region distal surface of left third toe, present on arrival. Pt to follow up outpatient with vascular surgery for f monitoring and management. Iron deficiency anemia. Iron profile showing low iron of 28, TIBC of 209, iron percentage saturation of 13.40, and transferrin of 149. Pt received 2 doses of Ferrlecit while in hospital and discharged home on Ferrous sulfate 325 mg daily. Hypomagnesemia. Replaced. Macrocytosis. Vtamin B12 1221.0 and Folate 17.00. Chronic Thrombocytopenia, believed to be secondary to daily anticoagulant use. Hospital Course: Patient is a very pleasant 77-year-old male with a past medical history of heart transplant in 2010, chronic congestive heart failure, history of DVT on anticoagulation with Eliquis, hypertension, and hyperlipidemia. Patient follows with heart transplant team and finger cobbler out of [facility] Dr. Segundo Arvizu. He presented to the emergency department on 05/25/23 for alteration in mental status after being found down on the ground during a well check. Patient was last known normal/seen on 05/23/23. Per documentation in chart, patient's family/friends were unable to get a hold of patient the entire day on Monday and his friend drove to his house to do a well check and found him lying on the floor behind his bedroom door soiled with feces and urine and very confused. EMS was called and patient was transported to the hospital. Upon arrival to the hospital patient remained slightly confused and was unable to recall events leading up to waking up on his bedroom floor.. He underwent full evaluation in the emergency department. Upon arrival to the facility patient was found to be tachycardic with heart rate 111, blood pressure 114/84, respiratory rate 20, temperature 97.7F, and SpO2 of 95% on room air. An EKG was completed showing sinus tachycardia at 113 bpm with runs of PVCs and a right bundle branch block. CT head and cervical spine was completed in radiology report reviewed stating CT head was negative for acute intracranial abnormalities and CT cervical spine showed no acute fracture or dislocation evident. Chest x-ray completed negative for acute cardiopulmonary process. X- ray of pelvis was completed and was negative for acute osseous pathology or any other abnormalities at this time. Patient was admitted under our services for rhabdomyolysis and acute kidney injury as well as concerns for left lower extremity cellulitis versus venous stasis dermatitis. Venous Doppler of left lower extremity was positive for DVT showing chronic DVT along the wall of the lower popliteal vein with no occlusive DVT identified. Patient received 2 day course of IV antibiotics of vancomycin prior to ruling out left lower extremity cellulitis and discontinuing antibiotics. Patient was treated with IV fluid hydration for treatment of acute rhabdomyolysis resulting in rehydration and improvement of renal function. Called and discussed patient's hospitalization with patient's finger cobbler, Dr. Segundo Arvizu at . Dr. Arvizu was updated on patient's admission and findings throughout his stay. He was notified of frequent runs of PVCs and subtherapeutic tacrolimus level. He advised no adjustments on patient's tacrolimus at this time and recommend continuing with 0.1 mg twice daily with repeat levels. Dr. Arvizu stated patient last had an echocardiogram with his office on 12/2022 with findings of a preserved EF of 65% and mildly dilated right ventricle otherwise no structural or valvular abnormalities. He also reports patient underwent a heart catheterization in 2019 and was found to have nonobstructive and stable coronary artery disease. Dr. Arvizu requested once patient is stable for discharge that he be discharged home on a 30 day event monitor with results sent to his office. patient was evaluated by our finger cobbler and recommended repeat echocardiogram and continued telemetry monitoring. Echocardiogram completed and report reviewed showing an EF of 55-60% with mildly enlarged right ventricle and moderately increased left atrial volume with no other structural or valvular abnormalities. Cardiology clearing patient from their perspective recommending outpatient follow-up with transplant finger cobbler at . Repeat Prograf levels were completed. Iron profile showing low iron of 28, TIBC of 209, iron percentage saturation of 13.40, and transferrin of 149. Patient given 2 doses of Ferrlecit and started on ferrous sulfate 325 mg daily. Once patient hydrated he had no complaints. Orthostatic vitals were negative for orthostatic hypotension. Renal function stable with creatinine of 1.24 upon discharge. Vital signs unremarkable with blood pressure 127/67, heart rate 85, respiratory rate 16, temp 98.9F and SpO2 of 97% on room air. Patient was evaluated by physical therapy recommending ambulation with rolling walker and discharged home with homecare for continued PT. Medically, patient is stable for discharge. Event monitor has been placed. Repeat Prograf levels are not available at this time. Patient will be discharged home with prescription for repeat Prograf levels in 3 days with results to be sent to transplant finger cobbler for follow-up and management of antirejection medication dosing. Patient discharged home with homecare at this time and arrangements set up for Meals on Wheels to ensure patient is getting adequate nutrition. Patient discharged at this time and to follow-up with PCP in 1-2 days, finger cobbler in 1 week, and vascular surgeon in 1-2 weeks for chronic DVT. Physical exam: Vital signs reviewed and stable. General: Nontoxic, no distress and appears stated age. Derm: Skin warm and dry, normal coloration for ethnicity. Head: Atraumatic, normocephalic and symmetric. Eyes: EOMs intact, no lid lag, and anicteric sclera Mouth: no lip lesions, mucus membranes moist Cardiovascular: regular rate and rhythm with normal S1S2, no murmur, positive posterior tibial pulses bilaterally, and cap refill < 2 seconds. Lungs: Respirations even, regular, and unlabored on room air. Lungs CTA bilaterally, no rhonchi, no rales, no wheezing, and no accessory muscle usage. Abdominal: soft, nontender to palpation, no guarding, no appreciable organomegaly Ext: Movement and sensation intact.. No gross muscle atrophy, no contractures. Left lower extremity venous stasis dermatitis, with reddish/purplish discoloration extending from mid land wrapping around to parts of calf. Neuro: Speech clear, face symmetrical and CN II-XII grossly intact with no noted focal neuro deficits Psych: Alert and oriented to person, place, time, and situation. Appropriate and pleasant affect. A total of 42 minutes of time were spent preparing this complex discharge summary. Pt was discharged on 05/30/23 at 11:01 AM. Patient was seen independently by Nurse Practitioner. This document was prepared using [employer] dictation software. Please allow for errors in mental health program director while rare they do occur. I reviewed the documentation as provided by the CASSIDY above, who is the original author of this note. I agree with the documented assessment and plan, with the following changes: none Patient Condition at Discharge: Stable Plan - Discharge Summary Discharge Rx Participant: No New Discharge Prescriptions: New Ferrous Sulfate [Iron (65 MG Elemental)] 325 mg PO DAILY 30 Days #30 tab Continue Vitamin E (Dl,Tocopheryl Acet) [Vitamin E (400 Iu = 180 mg)] 400 unit PO BID Tacrolimus [Prograf] 1 mg PO BID predniSONE 5 mg PO DAILY Pravastatin Sodium [Pravachol] 20 mg PO HS Omeprazole 20 mg PO DAILY Furosemide [Lasix] 40 mg PO DAILY Aspirin EC [Ecotrin Low Dose] 81 mg PO DAILY Ascorbic Acid [Vitamin C] 500 mg PO BID carvediloL [Coreg] 6.25 mg PO BID Apixaban [Eliquis] 5 mg PO BID Multivitamin With Folic Acid 400 Mcg Tab 1 tab PO DAILY Calcium Carbonate/Vitamin D3 [Calcium 600-Vit D3 62.5 Mcg (2,500 Iu)] 1 cap PO TID Acetaminophen Tab [Tylenol] 500 mg PO Q6H PRN PRN Reason: Pain Or Fever > 100.5 Discharge Medication List Ascorbic Acid [Vitamin C] 500 mg PO BID 06/23/19 [History] Aspirin EC [Ecotrin Low Dose] 81 mg PO DAILY 06/23/19 [History] Furosemide [Lasix] 40 mg PO DAILY 06/23/19 [History] Omeprazole 20 mg PO DAILY 06/23/19 [History] Pravastatin Sodium [Pravachol] 20 mg PO HS 06/23/19 [History] Tacrolimus [Prograf] 1 mg PO BID 06/23/19 [History] Vitamin E (Dl,Tocopheryl Acet) [Vitamin E (400 Iu = 180 mg)] 400 unit PO BID 06/23/19 [History] predniSONE 5 mg PO DAILY 06/23/19 [History] Apixaban [Eliquis] 5 mg PO BID 03/06/22 [History] carvediloL [Coreg] 6.25 mg PO BID 03/06/22 [History] Acetaminophen Tab [Tylenol] 500 mg PO Q6H PRN 03/24/23 [History] Calcium Carbonate/Vitamin D3 [Calcium 600-Vit D3 62.5 Mcg (2,500 Iu)] 1 cap PO TID 03/24/23 [History] Multivitamin With Folic Acid 400 Mcg Tab 1 tab PO DAILY 03/24/23 [History] Ferrous Sulfate [Iron (65 MG Elemental)] 325 mg PO DAILY 30 Days #30 tab 05/30/23 [Rx] Follow up Appointment(s)/Referral(s): Linda Muniz DO [STAFF PHYSICIAN] - 1 Week (follow up outpatient for chronic DVT and venous stasis dermatitis) [facility], [NON-STAFF] - 1 Week ([facility] will call you to arrange a visit) Nonstaff,Physician [Primary Care Provider] - 1-2 days Segundo Arvizu MD [REFERRING] - 1 Week (Follow up with Dr. Arvizu next week. ) Ambulatory/Diagnostic Orders: Miscellaneous Lab Order [LAB.AMB] Time Frame: 3 Days, Location: None Selected Patient Instructions/Handouts: Rhabdomyolysis (DC), Peripheral Vascular Disease (DC), Fall Prevention for Older Adults (DC), Stasis Dermatitis (DC), Holter Monitor (GEN) Activity/Diet/Wound Care/Special Instructions: Activity: As tolerated. Take breaks as needed. Diet: Heart healthy and carb consistent diet. Avoid salts, or foods with hidden salts such as canned or boxed foods and frozen dinners. Extra salt makes your heart work harder and traps the fluid in your body for longer. Special Instructions: Take all of your medications as directed and remember to keep all of your doctor's appointments and follow-up as needed. You may resume your Lasix tomorrow, however it is important to also drink fluids while taking this medication or this could result in damage to your kidneys. As discussed, you are being discharged home prior to your repeat tacrolimus levels resulting. Initial subtherapeutic levels strongly believed to be secondary to missed doses secondary to your syncopal episode and prolonged down time. Now that medication has been resumed it is expected that these levels should increase to therapeutic levels. You will need to return to lab in 3 days for repeat Prograf level and BMP. It is important to follow-up with your transplant finger cobbler, Dr. Arvizu at as we discussed. Event monitor has been placed, you will wear this for 30 days and these results will go to your transplant finger cobbler, Dr. Arvizu. Thank you for allowing us to participate in your care, it was truly a pleasure having you for our patient!!! Discharge Disposition: HOME WITH HOME HEALTH SERVICES
--- NOTE | 2023-05-31 13:39 | CDI ---
Documentation Clarification Form Date: 05/31/2023 01:01:21 PM From: Melissa Aj RN, CCDS Email: [email or web address] Admit Date: 05/26/2023 01:15:00 PM Patient Name: Garry Ahumada Visit Number: [id number] Discharge Date: 05/30/2023 04:04:00 PM ATTENTION: The Clinical Documentation Specialists (CDI) and [facility] Coding Staff appreciate your assistance in clarifying documentation. Please respond to the clarification below the line at the bottom and electronically sign. The CDI & [facility] Coding staff will review the response and follow-up if needed. Please note: Queries are made part of the Legal Health Record. If you have any questions, please contact the author of this message via ITS. Dr. Margarita Spain Acute Rhabdomyolysis is documented in the ED note, H&P and progress notes. Additional clarification regarding the type of rhabdomyolysis is requested. History/Risk Factors: CHF. Presents to ED for evaluation of weakness, FTT and inability to ambulate after a fall. Clinical Indicators: 05/25 Labs: Cr 1.99, CK [id number], and lactic acid 2.4 05/26 Labs: Cr 1.6 05/27 Labs: CK 209 05/30 Labs: Cr 1.24 ED: "Fall, Weakness, Rhabdomyolysis." H&P: "77-year-old male with history of cardiac transplant found confused and down on the floor soiled with feces and urine. Last known well was 2 days ago. Admission for acute rhabdomyolysis with acute kidney injury." 05/26 IM: "Acute rhabdomyolysis status post syncopal episode/fall and prolonged downtime (possibly 2 days). Acute kidney injury." 05/29 IM: "Patient was admitted under our services for rhabdomyolysis and acute kidney injury as well as concerns for left lower extremity cellulitis." Discharge summary: "Patient was treated with IV fluid hydration for treatment of acute rhabdomyolysis resulting in rehydration and improvement of renal function. Treatment: 1L 0.9 NS IV bolus on 05/25 followed by 125ml/hr 05/25-05/26; Burton 5- 325mg po Q4H prn for pain; LR @100ml/hr on 05/26; IV Vancomycin 1500mg 05/26-05/28 Please clarify the type of rhabdomyolysis, if known: [ ] Traumatic rhabdomyolysis due to fall [ ] Traumatic rhabdomyolysis due to prolonged immobility [ ] Other, please specify [ ] Unable to Determine Traumatic rhabdomyolysis due to prolonged immobility MTDD
== END 2023-05-30 16:04 | disposition home health service (06) | DRG 564 ==
LOC: EC 17:09 → 6NMEDSUR 20:31 → 4SSUR 22:33 → OBSVTOIN 05-26 13:15
PROVIDERS: ADMIT Internal Medicine; ATTEND Internal Medicine
DX: T79.6XXA Traumatic ischemia of muscle, initial encounter (principal); G93.41 Metabolic encephalopathy; N17.9 Acute kidney failure, unspecified; I50.32 Chronic diastolic (congestive) heart failure; I82.402 Acute embolism and thrombosis of unspecified deep veins of left lower extremity; I82.502 Chronic embolism and thrombosis of unspecified deep veins of left lower extremity; Z94.1 Heart transplant status; R62.7 Adult failure to thrive; D50.9 Iron deficiency anemia, unspecified; D69.6 Thrombocytopenia, unspecified; D75.89 Other specified diseases of blood and blood-forming organs; E78.5 Hyperlipidemia, unspecified; E83.42 Hypomagnesemia; H91.90 Unspecified hearing loss, unspecified ear; I11.0 Hypertensive heart disease with heart failure; I45.10 Unspecified right bundle-branch block; I87.2 Venous insufficiency (chronic) (peripheral); I87.8 Other specified disorders of veins; Z79.01 Long term (current) use of anticoagulants; Z79.82 Long term (current) use of aspirin; Z79.899 Other long term (current) drug therapy; Z82.49 Family history of ischemic heart disease and other diseases of the circulatory system; Z91.041 Radiographic dye allergy status
CPT/HCPCS: 36415; 70450; 71045; 72125; 72170; 80048; 80053; 80197; 81001; 82550; 82607; 82746; 83540; 83550; 83605; 83735; 84100; 84443; 84484; 85025; 85027; 85610; 85730; 87040; 93005; 93270; 93306; 94760; 96360; 96361; 99285

== ENCOUNTER 2023-06-29 18:02 | Inpatient (IN) | payer MEDICARE ==
[2023-06-29] MEDS ORDERED: ACETAMINOPHEN TAB 500 MG TAB PO STA (18:43)
[2023-06-29] MEDS ORDERED: IBUPROFEN IV 600 MG in SODIUM CHLORIDE 0.9% 250 ML IV STA (18:43)
[2023-06-29] MEDS ORDERED: cefTRIAXone IN SWFI 1,000 MG/10 ML SYRINGE IVP STA (18:44)
[2023-06-29] MEDS ORDERED: HYDROmorphone 0.5 MG/0.5 ML SYRINGE IVP STA (18:58)
[2023-06-29] MEDS ORDERED: KETOROLAC 15 MG/ML 1 ML VIAL IVP STA (18:58)
--- NOTE | 2023-06-29 19:01 | ED ---
General Adult HPI - General Source: patient, RN notes reviewed, old records reviewed Mode of arrival: ambulatory Limitations: no limitations <Mika Campos - Last Filed: 06/29/23 20:58> <Robin Falcon - Last Filed: 06/29/23 21:30> - General Chief complaint: Fever Stated complaint: Poss Kidney Infection, Fever, Time Seen by Provider: 06/29/23 18:30 - History of Present Illness Initial comments: This is a 77-year-old male who was sent in because he complained of left leg pain and had a fever. Patient denies any abdominal pain. Patient denies chest pain difficulty breathing shortest breath. Patient denies any recent fever chills or cough per patient denies headache patient denies numbness or weakness. Patient did state he feels as though he has an increased urination but there is no dysuria hematuria. Patient denies any back pain. Patient stated his main complaint is that his left leg is very painful posteriorly (Mika Campos) - Related Data Home Medications Medication Instructions Recorded Confirmed Ascorbic Acid [Vitamin C] 500 mg PO BID 06/23/19 05/25/23 Aspirin EC [Ecotrin Low Dose] 81 mg PO DAILY 06/23/19 05/25/23 Furosemide [Lasix] 40 mg PO DAILY 06/23/19 05/25/23 Omeprazole 20 mg PO DAILY 06/23/19 05/25/23 Pravastatin Sodium [Pravachol] 20 mg PO HS 06/23/19 05/25/23 Tacrolimus [Prograf] 1 mg PO BID 06/23/19 05/25/23 Vitamin E (Dl,Tocopheryl Acet) 400 unit PO BID 06/23/19 05/25/23 [Vitamin E (400 Iu = 180 mg)] predniSONE 5 mg PO DAILY 06/23/19 05/25/23 Apixaban [Eliquis] 5 mg PO BID 03/06/22 05/25/23 carvediloL [Coreg] 6.25 mg PO BID 03/06/22 05/25/23 Acetaminophen Tab [Tylenol] 500 mg PO Q6H PRN 03/24/23 05/25/23 Calcium Carbonate/Vitamin D3 1 cap PO TID 03/24/23 05/25/23 [Calcium 600-Vit D3 62.5 Mcg (2,500 Iu)] Multivitamin With Folic Acid 400 1 tab PO DAILY 03/24/23 05/25/23 Mcg Tab Previous Rx's Medication Instructions Recorded Ferrous Sulfate [Iron (65 MG 325 mg PO DAILY 30 Days #30 tab 05/30/23 Elemental)] Allergies Allergy/AdvReac Type Severity Reaction Status Date / Time Iodinated Contrast Media Allergy Unknown Verified 06/29/23 18:25 Review of Systems ROS Other: All systems not noted in ROS Statement are negative. <Mika Campos - Last Filed: 06/29/23 20:58> ROS Other: All systems not noted in ROS Statement are negative. <Robin Falcon - Last Filed: 06/29/23 21:30> ROS Statement: Those systems with pertinent positive or pertinent negative responses have been documented in the HPI. Past Medical History Past Medical History: Heart Failure History of Any Multi-Drug Resistant Organisms: None Reported Past Surgical History: Heart Catheterization Additional Past Surgical History / Comment(s): heart transplant 2010. Heart C atheterization 9-6-19 [facility] Past Anesthesia/Blood Transfusion Reactions: No Reported Reaction Past Psychological History: No Psychological Hx Reported Smoking Status: Never smoker Past Alcohol Use History: None Reported Past Drug Use History: None Reported - Past Family History Father Family Medical History: Congestive Heart Failure (CHF), Renal Disease Mother Family Medical History: Unable to Obtain <Mika Campos - Last Filed: 06/29/23 20:58> General Exam Limitations: no limitations <Mika Campos - Last Filed: 06/29/23 20:58> - General Exam Comments Initial Comments: GENERAL: Patient is well-developed and well-nourished. Patient is nontoxic and well- hydrated and is in mild distress. ENT: Neck is soft and supple. No significant lymphadenopathy is noted. Oropharynx is clear. Moist mucous membranes. Neck has full range of motion without eliciting any pain. EYES: The sclera were anicteric and conjunctiva were pink and moist. Extraocular movements were intact and pupils were equal round and reactive to light. Eyelids were unremarkable. PULMONARY: Unlabored respirations. Good breath sounds bilaterally. No audible rales rh onchi or wheezing was noted. CARDIOVASCULAR: There is a regular rate and rhythm without any murmurs gallops or rubs. ABDOMEN: Soft and nontender with normal bowel sounds. SKIN: Skin is clear with no lesions or rashes and otherwise unremarkable. NEUROLOGIC: Patient is alert and oriented x3. Cranial nerves II through XII are grossly intact. Motor and sensory are also intact. Normal speech, volume and content. Symmetrical smile. MUSCULOSKELETAL: Normal extremities with adequate strength and full range of motion. Patient's left leg is very red hot and tender posteriorly from the thigh down to the mid calf. LYMPHATICS: No significant lymphadenopathy is noted PSYCHIATRIC: Normal psychiatric evaluation. (Mika Campos) Course Vital Signs 06/29/23 06/29/23 18:21 20:53 Temperature 103.1 F H 100.3 F H Pulse Rate 116 H Respiratory 20 Rate Blood Pressure 131/71 O2 Sat by Pulse 95 Oximetry Medical Decision Making - Lab Data Result diagrams: 06/29/23 19:33 06/29/23 19:33 <Mika Campos - Last Filed: 06/29/23 20:58> - Lab Data Result diagrams: 06/29/23 19:33 06/29/23 19:33 <Robin Falcon - Last Filed: 06/29/23 21:30> - Medical Decision Making Was pt. sent in by a medical professional or institution (, PA, DIRECTOR OF SECURITIES AND REAL ESTATE, urgent care, hospital, or halfway...) When possible be specific @ -[No] Did you speak to anyone other than the patient for history (EMS, parent, family, police, friend...)? What history was obtained from this source @ -[No] Did you review nursing and triage notes (agree or disagree)? Why? @ -[I reviewed and agree with nursing and triage notes] Were old charts reviewed (outside hosp., previous admission, EMS record, old EKG, old radiological studies, urgent care reports/EKG's, halfway records)? Report findings @ -I reviewed prior charts in prior lab work on this patient Differential Diagnosis (chest pain, altered mental status, abdominal pain women, abdominal pain men, vaginal bleeding, weakness, fever, dyspnea, syncope, headache, dizziness, GI bleed, back pain, seizure, CVA, palpatations, mental health, musculoskeletal)? @ -Differential Fever: Pneumonia, viral URI, endocarditis, myocarditis, pericarditis, otitis, sinusitis, peritonsillar Abscess, retropharyngeal Abscess, epiglottitis, peritonitis, appendicitis, Luci cystitis, diverticulitis, hepatitis, colitis, UTI, PID, TOA, pyelonephritis, prostatitis, epididymitis, meningitis, encephalitis, pulmonary embolism, CVA, thyroid storm, pancreatitis, adrenal crisis, cavernous sinus thrombosis, this is not meant to be an all-inclusive list. EKG interpreted by me (3pts min.). @ -[As above] X-rays interpreted by me (1pt min.). @ -[None done] CT interpreted by me (1pt min.). @ -[None done] U/S interpreted by me (1pt. min.). @ -Ultrasound showed no DVT What testing was considered but not performed or refused? (CT, X-rays, U/S, labs)? Why? @ -[None] What meds were considered but not given or refused? Why? @ -[None] Did you discuss the management of the patient with other professionals (professionals i.e. , PA, DIRECTOR OF SECURITIES AND REAL ESTATE, lab, RT, psych nurse, social science research assistant, life management teacher, teacher, public service officer, assistant restaurant general manager)? Give summary @ -Dr. Pace and she agreed to admit the patient admitted the patient wrote a dmitting orders Was smoking cessation discussed for >3mins.? @ -[No] Was critical care preformed (if so, how long)? @ -[No] Were there social determinants of health that impacted care today? How? (Homelessness, low income, unemployed, alcoholism, drug addiction, transportation, low edu. Level, literacy, decrease access to med. care, fdc, rehab)? @ -[No] Was there de-escalation of care discussed even if they declined (Discuss DNR or withdrawal of care, Hospice)? DNR status @ -[No] What co-morbidities impacted this encounter? (DM, HTN, Smoking, COPD, CAD, Cancer, CVA, ARF, Chemo, Hep., AIDS, mental health diagnosis, sleep apnea, morbid obesity)? @ -[None] Was patient admitted / discharged? Hospital course, mention meds given and route, prescriptions, significant lab abnormalities, going to OR and other pertinent info. @ -Patient will be admitted to Dr. Pace. Patient has cellulitis of the left leg. Patient received 2 g of Rocephin while in the emergency department. A consult we placed her doctor said Undiagnosed new problem with uncertain prognosis? @ -[No] Drug Therapy requiring intensive monitoring for toxicity (Heparin, Nitro, Insulin, Cardizem)? @ -[No] Were any procedures done? @ -[No] Diagnosis/symptom? @ -Leg cellulitis Acute, or Chronic, or Acute on Chronic? @ -Acute Uncomplicated (without systemic symptoms) or Complicated (systemic symptoms)? @ -Complicated Side effects of treatment? @ -[No] Exacerbation, Progression, or Severe Exacerbation? @ -[No] Poses a threat to life or bodily function? How? (Chest pain, [place], SD, pneumonia, PE, COPD, DKA, ARF, appy, cholecystitis, CVA, Diverticulitis, Homicidal, Suicidal, threat to staff... and all critical care pts) @ -Yes this could lead to sepsis and end organ dysfunction (Mika Campos) EKG: Sinus tachycardia rate of 106, normal FL interval, QRS duration 155, QTC 431, right bundle branch block, similar compared to prior. (Robin Falcon) - Lab Data Lab Results 06/29/23 06/29/23 06/29/23 Range/Units 19:33 19:33 19:33 WBC 9.0 (3.8-10.6) k/uL RBC 3.28 L (4.30-5.90) m/uL Hgb 11.2 L (13.0-17.5) gm/dL Hct 32.1 L (39.0-53.0) % MCV 97.9 (80.0-100.0) fL MCH 34.1 (25.0-35.0) pg MCHC 34.8 (31.0-37.0) g/dL RDW 13.3 (11.5-15.5) % Plt Count 85 L (150-450) k/uL MPV 8.4 Neutrophils % 80 % Lymphocytes % 15 % Monocytes % 4 % Eosinophils % 1 % Basophils % 0 % Neutrophils # 7.2 (1.3-7.7) k/uL Lymphocytes # 1.3 (1.0-4.8) k/uL Monocytes # 0.4 (0-1.0) k/uL Eosinophils # 0.1 (0-0.7) k/uL Basophils # 0.0 (0-0.2) k/uL Polychromasia Present Sodium 136 L (137-145) mmol/L Potassium 4.3 (3.5-5.1) mmol/L Chloride 102 (98-107) mmol/L Carbon Dioxide 25 (22-30) mmol/L Anion Gap 9 mmol/L BUN 26 H (9-20) mg/dL Creatinine 1.32 H (0.66-1.25) mg/dL Est GFR (CKD-EPI)AfAm 60 (>60 ml/min/1.73 sqM) Est GFR (CKD-EPI)NonAf 52 (>60 ml/min/1.73 sqM) Glucose 128 H (74-99) mg/dL Plasma Lactic Acid Jonh (0.7-2.0) mmol/L Calcium 9.3 (8.4-10.2) mg/dL Total Bilirubin 1.2 (0.2-1.3) mg/dL AST 23 (17-59) U/L ALT 14 (4-49) U/L Alkaline Phosphatase 74 (38-126) U/L Total Protein 7.0 (6.3-8.2) g/dL Albumin 3.6 (3.5-5.0) g/dL Urine Color Colorless Urine Appearance Clear (Clear) Urine pH 8.0 (5.0-8.0) Ur Specific [place] 1.009 (1.001-1.035) Urine Protein Negative (Negative) Urine Glucose (UA) Negative (Negative) Urine Ketones Negative (Negative) Urine Blood Negative (Negative) Urine Nitrite Negative (Negative) Urine Bilirubin Negative (Negative) Urine Urobilinogen <2.0 (<2.0) mg/dL Ur Leukocyte Esterase Negative (Negative) 06/29/23 Range/Units 19:33 WBC (3.8-10.6) k/uL RBC (4.30-5.90) m/uL Hgb (13.0-17.5) gm/dL Hct (39.0-53.0) % MCV (80.0-100.0) fL MCH (25.0-35.0) pg MCHC (31.0-37.0) g/dL RDW (11.5-15.5) % Plt Count (150-450) k/uL MPV Neutrophils % % Lymphocytes % % Monocytes % % Eosinophils % % Basophils % % Neutrophils # (1.3-7.7) k/uL Lymphocytes # (1.0-4.8) k/uL Monocytes # (0-1.0) k/uL Eosinophils # (0-0.7) k/uL Basophils # (0-0.2) k/uL Polychromasia Sodium (137-145) mmol/L Potassium (3.5-5.1) mmol/L Chloride (98-107) mmol/L Carbon Dioxide (22-30) mmol/L Anion Gap mmol/L BUN (9-20) mg/dL Creatinine (0.66-1.25) mg/dL Est GFR (CKD-EPI)AfAm (>60 ml/min/1.73 sqM) Est GFR (CKD-EPI)NonAf (>60 ml/min/1.73 sqM) Glucose (74-99) mg/dL Plasma Lactic Acid Jonh 1.1 (0.7-2.0) mmol/L Calcium (8.4-10.2) mg/dL Total Bilirubin (0.2-1.3) mg/dL AST (17-59) U/L ALT (4-49) U/L Alkaline Phosphatase (38-126) U/L Total Protein (6.3-8.2) g/dL Albumin (3.5-5.0) g/dL Urine Color Urine Appearance (Clear) Urine pH (5.0-8.0) Ur Specific [place] (1.001-1.035) Urine Protein (Negative) Urine Glucose (UA) (Negative) Urine Ketones (Negative) Urine Blood (Negative) Urine Nitrite (Negative) Urine Bilirubin (Negative) Urine Urobilinogen (<2.0) mg/dL Ur Leukocyte Esterase (Negative) Disposition Time of Disposition: 21:00 <Mika Campos - Last Filed: 06/29/23 20:58> <Robin Falcon - Last Filed: 06/29/23 21:30> Clinical Impression: Left leg cellulitis Disposition: ADMITTED IP TO THIS HOSP
[2023-06-29] MEDS: SODIUM CHLORIDE 0.9% 500 ML 500 ML IV SCH ×2 (19:40→21:41)
[2023-06-29 19:44] LABS: Basophils % (A) 0 %; Eosinophils # (A) 0.1 k/uL (0-0.7); Eosinophils % (A) 1 %; HCT 32.1 % (39.0-53.0); HGB 11.2 gm/dL (13.0-17.5); Lymphocytes # (A) 1.3 k/uL (1.0-4.8); Lymphocytes % (A) 15 %; MCH 34.1 pg (25.0-35.0); MCHC 34.8 g/dL (31.0-37.0); MCV 97.9 fL (80.0-100.0); Mean Platelet Volume 8.4; Monocytes # (A) 0.4 k/uL (0-1.0); Monocytes % (A) 4 %; Neutrophils # (A) 7.2 k/uL (1.3-7.7); Neutrophils % (A) 80 %; RBC 3.28 m/uL (4.30-5.90); RDW 13.3 % (11.5-15.5)
[2023-06-29 19:47] LABS: Appearance,Urine Clear (Clear); Bilirubin,Urine Negative (Negative); Blood,Urine Negative (Negative); Color,Urine Colorless; Glucose,Urine (UA) Negative (Negative); Ketones,Urine Negative (Negative); Leukocyte Esterase,Urine Negative (Negative); Nitrite,Urine Negative (Negative); Protein,Urine Negative (Negative); Specific Gravity,Urine 1.009 (1.001-1.035); Urobilinogen,Urine <2.0 mg/dL (<2.0)
[2023-06-29 19:59] LABS: ALT 14 U/L (4-49); AST 23 U/L (17-59); African American GFR (CKD) 60 (>60 ml/min/1.73 sqM); Albumin 3.6 g/dL (3.5-5.0); Alkaline Phosphatase 74 U/L (38-126); Anion Gap 9 mmol/L; Blood Urea Nitrogen 26 mg/dL (9-20); Calcium 9.3 mg/dL (8.4-10.2); Carbon Dioxide 25 mmol/L (22-30); Chloride 102 mmol/L (98-107); Glucose 128 mg/dL (74-99); Non-African American GFR(CKD) 52 (>60 ml/min/1.73 sqM); Potassium 4.3 mmol/L (3.5-5.1); Sodium 136 mmol/L (137-145); Total Bilirubin 1.2 mg/dL (0.2-1.3)
--- NOTE | 2023-06-29 20:24 | XR ---
EXAMINATION TYPE: XR chest 2V DATE OF EXAM: 06/29/2023 8:14 PM CLINICAL INDICATION:Male, 77 years old with history of Fever; COMPARISON: Chest radiographs from 05/25/2023 TECHNIQUE: XR chest 2V Frontal and lateral views of the chest. FINDINGS: Lungs/Pleura: Airspace opacities projecting the spinal lateral view and over the heart on frontal vie w. There is no evidence of pleural effusion, focal consolidation, or pneumothorax. Pulmonary vascularity: Pulmonary vascular congestion. Heart/mediastinum: Cardiomediastinal silhouette is enlarged and stable. Musculoskeletal: No acute osseous pathology. Midline sternotomy wires are noted. IMPRESSION: Airspace opacities project over the spine on lateral view thought to be with in the left lower lung. Correlate for pneumonia.
[2023-06-29 20:35] LABS: Platelet Count 85 k/uL (150-450); Polychromasia Present
[2023-06-29] MEDS ORDERED: SODIUM CHLORIDE 0.9% 1,000 ML IV ONE (21:00)
--- NOTE | 2023-06-29 21:18 | US ---
EXAMINATION TYPE: US venous doppler duplex LE LT DATE OF EXAM: 06/29/2023 6:59 PM COMPARISON: [id number] CLINICAL INDICATION: Male, 77 years old with history of Red hot swollen leg; Red and warm left leg SIDE PERFORMED: Left TECHNIQUE: The lower extremity deep venous system is examined utilizing real time linear array sonog viri with graded compression, doppler sonography and color-flow sonography. VESSELS IMAGED: Common Femoral Vein Deep Femoral Vein Greater Saphenous Vein * Femoral Vein Popliteal Vein Small Saphenous Vein * Proximal Calf Veins (* superficial vessels) Left Leg: No evidence for DVT IMPRESSION: Grayscale, color doppler, spectral doppler imaging performed of the deep veins of the lo wer extremities. There is normal flow, compressibility, vascular waveforms.
[2023-06-29 21:32] LABS: INR 1.2 (<1.2); Partial Thromboplastin Time 29.1 sec (22.0-30.0)
[2023-06-30] MEDS ORDERED: NOREPINEPHRINE 4 MG in SODIUM CHLORIDE 0.9% 250 ML IV ONE ×2
[2023-06-30] MEDS ORDERED: NALOXONE 0.4 MG/ML 1 ML VIAL IV PRN (00:31)
[2023-06-30] MEDS ORDERED: IPRATROPIUM-ALBUTEROL 3 ML NEB INHALATION PRN (00:31)
[2023-06-30 00:44] LABS: Glucose,Whole Blood 127 mg/dL (70-110)
[2023-06-30] MEDS ORDERED: AZITHROMYCIN 500 MG in SODIUM CHLORIDE 0.9% 250 ML IVPB SCH (01:00)
--- NOTE | 2023-06-30 04:04 | P.CNPUL ---
History of Present Illness Consult date: 06/30/23 Requesting physician: Yeison Pace Reason for consult: other (Hypotension, sepsis) Chief complaint: Generalized malaise, confusion, weakness History of present illness: I am seeing this patient in new consultation today 06/30/23 in the emergency room after he presented with complaints of generalized weakness and confusion. Patient is a 77-year-old white male with past medical history significant for previous heart transplant in 2010, on immunosuppressants including Prograf, lipidemia, hypertension, and left lower extremity DVT. His Heel Lift Gouger is a Dr. Segundo Chi at the [facility]. Patient did have a recent hospital admission last month for suspected cellulitis of the left leg and sepsis. He did have a DVT in this leg. He does live alone. While at home, the patient was feeling weak and confused. His neighbor came to check on him and called EMS. On arrival to emergency room, patient was found to be febrile with a T-max of 103F. He denies any significant shortness breath, cough, chest pain, hemoptysis. Denies any difficulty urinating. He did have one isolated episode of vomiting. Denies any abdominal pain, hematemesis, diarrhea, constipation. He's had reduced appetite. He does have swelling of his left lower extremity. This was noted on his previous admission. The leg is erythemic, warm, and swollen, but the patient states that it is actually smaller in size. Venous Doppler from last month was positive for DVT, repeat Doppler this admission was negative. There are bilateral chronic venous stasis changes. He denies any chest pain, heart palpitations, or orthopnea. He has lost a total of 10 pounds in the last 2-3 days. Does take Lasix at home. He has not been eating and drinking a whole lot lately. Patient is currently sitting up in bed, on room air, in no acute distress. His blood pressure is hypotensive, he has received 1 L normal saline bolus, and will be given another. Chest x-ray on arrival showed a left retrocardiac infiltrate concerning for pneumonia. CBC on arrival showed a WBC count of 9, hemoglobin 11.2, hematocrit 32.1, platelets 85,000. BMP on arrival shows sodium 136, potassium 4.3, chloride 102, serum bicarb 25, BUN 26, creatinine 1.32, glucose 128. Normal saline is infusing at 75 mL per hour. Lactic acid level was 1.1. Negative for influenza, RSV, COVID-19. Urinalysis not concerning for UTI. Patient was empirically started on a combination of Rocephin and azithromycin. Currently, the patient is afebrile. He is immunosuppressed. There is a component of sepsis. The patient will be admitted to the ICU for closer monitoring. Review of Systems REVIEW OF SYSTEMS: CONSTITUTIONAL: Admits to 10 pound weight loss over the last 2-3 days, is on Lasix at home. EYES: Denies change in vision. EARS, NOSE, MOUTH, THROAT: Denies headaches, denies sore throat. CARDIOVASCULAR: Denies chest pain, palpitations or syncopal episodes. RESPIRATORY: Denies shortness of breath, cough, congestion or hemoptysis. GASTROINTESTINAL: Denies abdominal pain, constipation,, or diarrhea. Had an isolated episode of vomiting. Admits reduced appetite. GENITOURINARY: Denies hematuria, denies dysuria, frequency. INTEGUMENTARY: Denies rash, denies eczema. Admits left lower leg swelling and erythema since March NEUROLOGICAL: Admits and confusion earlier, no recent seizure activity. PSYCHIATRIC: Denies anxiety, denies depression. HEMATOLOGIC/LYMPHATIC: Admits chronic anemia, denies enlarged lymph node Past Medical History Past Medical History: Heart Failure History of Any Multi-Drug Resistant Organisms: None Reported Past Surgical History: Heart Catheterization Additional Past Surgical History / Comment(s): heart transplant 2010. Heart Catheterization 9-6-19 [facility] Past Anesthesia/Blood Transfusion Reactions: No Reported Reaction Past Psychological History: No Psychological Hx Reported Smoking Status: Never smoker Past Alcohol Use History: None Reported Past Drug Use History: None Reported - Past Family History Father Family Medical History: Congestive Heart Failure (CHF), Renal Disease Mother Family Medical History: Unable to Obtain Medications and Allergies Home Medications Medication Instructions Recorded Confirmed Type Ascorbic Acid [Vitamin C] 500 mg PO BID 06/23/19 06/29/23 History Aspirin EC [Ecotrin Low Dose] 81 mg PO DAILY 06/23/19 06/29/23 History Omeprazole 20 mg PO DAILY 06/23/19 06/29/23 History Pravastatin Sodium [Pravachol] 20 mg PO HS 06/23/19 06/29/23 History Tacrolimus [Prograf] 1 mg PO BID 06/23/19 06/29/23 History Vitamin E (Dl,Tocopheryl Acet) 400 unit PO BID 06/23/19 06/29/23 History [Vitamin E (400 Iu = 180 mg)] predniSONE 5 mg PO DAILY 06/23/19 06/29/23 History Apixaban [Eliquis] 5 mg PO BID 03/06/22 06/29/23 History carvediloL [Coreg] 6.25 mg PO BID 03/06/22 06/29/23 History Acetaminophen Tab [Tylenol] 500 mg PO Q6H PRN 03/24/23 06/29/23 History Calcium Carbonate/Vitamin D3 1 cap PO TID 03/24/23 06/29/23 History [Calcium 600-Vit D3 62.5 Mcg (2,500 Iu)] Multivitamin With Folic Acid 400 1 tab PO DAILY 03/24/23 06/29/23 History Mcg Tab Ferrous Sulfate [Iron (65 MG 325 mg PO DAILY 30 Days #30 tab 05/30/23 06/29/23 Rx Elemental)] Furosemide [Lasix] 20 mg PO DAILY 06/29/23 06/29/23 History Allergies Allergy/AdvReac Type Severity Reaction Status Date / Time Iodinated Contrast Media Allergy Unknown Verified 06/29/23 21:43 Physical Exam Vitals: Vital Signs Temp Pulse Resp BP Pulse Ox 06/30/23 03:00 93 10 L 94/63 95 06/30/23 02:45 93 10 L 94/63 91 L 06/30/23 02:30 92 11 L 100/59 93 L 06/30/23 02:15 92 12 100/59 93 L 06/30/23 02:00 93 9 L 110/63 92 L 06/30/23 01:45 94 14 110/63 06/30/23 01:30 98 13 97/65 06/30/23 01:15 101 H 17 97/65 06/30/23 01:00 101 H 18 107/65 06/30/23 00:45 97.9 F 98 16 107/65 96 06/30/23 00:30 85 8 L 99/57 95 06/30/23 00:22 85 18 100/56 97 06/30/23 00:15 84 12 92/52 94 L 06/30/23 00:00 82 9 L 80/47 94 L 06/29/23 23:45 87 27 H 82/47 95 06/29/23 23:38 86 10 L 84/50 94 L 06/29/23 23:30 86 18 77/44 95 06/29/23 23:15 88 20 73/44 95 06/29/23 23:00 91 18 78/47 95 06/29/23 22:45 95 18 77/46 95 06/29/23 22:30 97 18 80/49 95 06/29/23 22:26 99.5 F 06/29/23 22:15 100 18 83/48 95 06/29/23 21:45 104 H 19 106/67 95 06/29/23 21:33 101.9 F H 105 H 106/67 96 06/29/23 20:53 100.3 F H 06/29/23 18:21 103.1 F H 116 H 20 131/71 95 Intake and Output 06/29/23 06/29/23 06/30/23 14:59 22:59 06:59 Intake Total 325 Balance 325 Intake: IV 75 Sodium Chloride 0.9% 1, 75 000 ml @ 75 mls/hr IV . [id number] ONE Rx#:[id number] Intake, IV Titration 250 Amount Azithromycin 500 mg In 250 Sodium Chloride 0.9% 250 ml @ 250 mls/hr IVPB DAILY@0100 [facility] Rx#: [id number] Other: # Bowel Movements 1 Weight 65.771 kg 65.771 kg GENERAL EXAM: Alert, 77-year-old white male appearing stated age, comfortable in no apparent distress. HEAD: Normocephalic and atraumatic EYES: Normal reaction of pupils, equal size. NOSE: Clear with pink turbinates. THROAT: No erythema or exudates. NECK: No masses, no JVD. CHEST: No chest wall deformity. Sternal incisional scar LUNGS: Equal air entry with no crackles, wheeze, rhonchi or dullness. No conversational dyspnea or accessory muscle use.. CVS: S1 and S2 normal with no audible murmur, regular rhythm. No extra heart sounds ABDOMEN: Abdominal hernia, no hepatosplenomegaly, active bowel sounds, no g uarding or rigidity. SPINE: No scoliosis or deformity SKIN: Bilateral chronic venous stasis changes. Left lower extremity is erythema, warm, and swollen. CENTRAL NERVOUS SYSTEM: No focal deficits, tone is normal in all 4 extremities. EXTREMITIES: no clubbing, or cyanosis. Peripheral pulses are intact. Results - Laboratory Findings CBC and BMP: 06/29/23 19:33 06/29/23 19:33 PT/INR, D-dimer PT 12.0 sec (9.0-12.0) 06/29/23 21:15 INR 1.2 (<1.2) H 06/29/23 21:15 Abnormal lab findings: Abnormal Labs 06/29/23 06/29/23 06/29/23 19:33 19:33 21:15 RBC 3.28 L Hgb 11.2 L Hct 32.1 L Plt Count 85 L INR 1.2 H Sodium 136 L BUN 26 H Creatinine 1.32 H Glucose 128 H POC Glucose (mg/dL) 06/30/23 00:41 RBC Hgb Hct Plt Count INR Sodium BUN Creatinine Glucose POC Glucose (mg/dL) 127 H - Diagnostic Findings Chest x-ray: image reviewed Assessment and Plan Assessment: Acute cellulitis of the left lower extremity involving the leg and the medial thigh. There is quite erythematous and red and inflamed and the patient is currently on IV Rocephin Suspected Community acquired pneumonia and sepsis, chest x-ray on arrival showed a retrocardiac infiltrate concerning for pneumonia. There was pulmonary vascular congestion, cardiac silhouette was stable. Negative for influenza, RSV , COVID-19 History of heart transplant in 2010 at [facility], currently on anti-rejection meds including Prograf and prednisone History of left lower extremity DVT Acute on chronic kidney disease, creatinine 1.32 Anemia of chronic disease Thrombocytopenia, chronic Chronic diastolic congestive heart failure, stable, most recent echocardiogram from previous admission showed a preserved left ventricular ejection fraction of 55-60%, mild LVH, no valvular abnormalities. Benign essential hypertension Hyperlipidemia Plan: Patient's medications, labs, chest x-ray reviewed On room air Started on empiric antibiotics Infectious disease consult placed for sepsis Hypotension, improved with fluid resuscitation with a total of 2 L normal saline bolus, may start vasopressors if needed Blood cultures pending Patient is immunosuppressed related to anti-rejection meds. He will be monitored in the intensive care unit at least overnight. I have personally seen and examined the patient, performed the documentation and the assessment and plan as written. Number of minutes spent on the visit:20 This is a joint evaluation that was done along with the nurse practitioner. The patient was evaluated and this evaluation was done in more than 30 minutes. The patient presented to us with generalized weakness, hypotension, and the patient was lethargic. The patient was suspected IV fluids. The patient is currently on IV Rocephin. Zithromax will be discontinued as the patient has no evidence of any pneumonia. Hemodynamically improved. No pressors. We'll restart Prograf and prednisone. We'll continue IV Rocephin for now. Continue and resume all medications. Corag to be restarted. Cultures are still pending for now. Anticoagulated to be restarted. Monitor hemodynamics. Monitor left lower oximetry cellulitis. We'll continue to follow. Time with Patient: Greater than 30
[2023-06-30] MEDS: PANTOPRAZOLE 40 MG/10 ML VIAL IV SCH (08:48)
[2023-06-30] MEDS ORDERED: NON FORMULARY DRUG (Omeprazole [Omeprazole] 20 MG Capsule.Dr) PO SCH (09:00)
[2023-06-30] MEDS: VITAMIN E (DL,TOCOPHERYL ACET) 400 UNIT (180 MG) CAP PO SCH ×2 (09:32→21:12)
[2023-06-30] MEDS: ASPIRIN 81 MG PO SCH (09:32)
[2023-06-30] MEDS: APIXABAN 5 MG TAB PO SCH ×2 (09:32→21:11)
[2023-06-30] MEDS: ASCORBIC ACID 500 MG TAB PO SCH ×2 (09:32→21:11)
[2023-06-30] MEDS: TACROLIMUS 1 MG CAP PO SCH ×2 (09:33→21:11)
[2023-06-30] MEDS: predniSONE 5 MG TAB PO SCH (09:33)
[2023-06-30] MEDS: carvediloL 6.25 MG TAB PO SCH ×2 (09:40→18:09)
--- NOTE | 2023-06-30 16:34 | P.HPIM ---
History of Present Illness H&P Date: 06/30/23 Chief Complaint: Fever/left foot pain 77-year-old male, history of hypertension, hyperlipidemia, CHF who was sent in because he complained of left leg pain and had a fever. Patient denies any abdominal pain. Patient denies chest pain difficulty breathing shortest breath. Patient denies any recent fever chills or cough per patient denies headache patient denies numbness or weakness. Patient did state he feels as though he has an increased urination but there is no dysuria hematuria. Patient denies any back pain. Patient stated his main complaint is that his left leg is very painful posteriorly Venous Doppler from last month was positive for DVT, repeat Doppler this admission was negative. There are bilateral chronic venous stasis changes. Chest x-ray on arrival showed a left retrocardiac infiltrate concerning for pneumonia. CBC on arrival showed a WBC count of 9, hemoglobin 11.2, hematocrit 32.1, platelets 85,000. BMP on arrival shows sodium 136, potassium 4.3, chloride 102, serum bicarb 25, BUN 26, creatinine 1.32, glucose 128. Normal saline is infusing at 75 mL per hour. Lactic acid level was 1.1. Negative for influenza, RSV, COVID-19. Urinalysis not concerning for UTI. Patient was empirically started on a combination of Rocephin and azithromycin. Review of Systems REVIEW OF SYSTEMS: CONSTITUTIONAL: No fever, no malaise, no fatigue. HEENT: No recent visual problems or hearing problems. Denied any sore throat. CARDIOVASCULAR: No chest pain, orthopnea, PND, no palpitations, no syncope. PULMONARY: No shortness of breath, no cough, no hemoptysis. GASTROINTESTINAL: No diarrhea, no nausea, no vomiting, no abdominal pain. NEUROLOGICAL: No headaches, no weakness, no numbness. HEMATOLOGICAL: Denies any bleeding or petechiae. GENITOURINARY: Denies any burning micturition, frequency, or urgency. MUSCULOSKELETAL/RHEUMATOLOGICAL: Denies any joint pain, swelling, or any muscle pain. ENDOCRINE: Denies any polyuria or polydipsia. The rest of the 14-point review of systems is negative. Past Medical History Past Medical History: Heart Failure History of Any Multi-Drug Resistant Organisms: None Reported Past Surgical History: Heart Catheterization Additional Past Surgical History / Comment(s): heart transplant 2010. Heart Ca theterization 9-6-[facility] Past Anesthesia/Blood Transfusion Reactions: No Reported Reaction Past Psychological History: No Psychological Hx Reported Smoking Status: Never smoker Past Alcohol Use History: None Reported Past Drug Use History: None Reported - Past Family History Father Family Medical History: Congestive Heart Failure (CHF), Renal Disease Mother Family Medical History: Unable to Obtain Medications and Allergies Home Medications Medication Instructions Recorded Confirmed Type Ascorbic Acid [Vitamin C] 500 mg PO BID 06/23/19 06/29/23 History Aspirin EC [Ecotrin Low Dose] 81 mg PO DAILY 06/23/19 06/29/23 History Omeprazole 20 mg PO DAILY 06/23/19 06/29/23 History Pravastatin Sodium [Pravachol] 20 mg PO HS 06/23/19 06/29/23 History Tacrolimus [Prograf] 1 mg PO BID 06/23/19 06/29/23 History Vitamin E (Dl,Tocopheryl Acet) 400 unit PO BID 06/23/19 06/29/23 History [Vitamin E (400 Iu = 180 mg)] predniSONE 5 mg PO DAILY 06/23/19 06/29/23 History Apixaban [Eliquis] 5 mg PO BID 03/06/22 06/29/23 History carvediloL [Coreg] 6.25 mg PO BID 03/06/22 06/29/23 History Acetaminophen Tab [Tylenol] 500 mg PO Q6H PRN 03/24/23 06/29/23 History Calcium Carbonate/Vitamin D3 1 cap PO TID 03/24/23 06/29/23 History [Calcium 600-Vit D3 62.5 Mcg (2,500 Iu)] Multivitamin With Folic Acid 400 1 tab PO DAILY 03/24/23 06/29/23 History Mcg Tab Ferrous Sulfate [Iron (65 MG 325 mg PO DAILY 30 Days #30 tab 05/30/23 06/29/23 Rx Elemental)] Furosemide [Lasix] 20 mg PO DAILY 06/29/23 06/29/23 History Allergies Allergy/AdvReac Type Severity Reaction Status Date / Time Iodinated Contrast Media Allergy Unknown Verified 06/29/23 21:43 Physical Exam Vitals: Vital Signs Temp Pulse Resp BP Pulse Ox 06/30/23 11:00 89 18 132/67 95 06/30/23 10:00 92 24 126/63 94 L 06/30/23 09:00 94 22 123/65 94 L 06/30/23 08:45 90 24 123/65 06/30/23 08:30 88 15 06/30/23 08:15 98.3 F 89 10 L 131/68 06/30/23 08:00 89 24 130/69 06/30/23 07:45 89 20 06/30/23 07:30 89 21 114/65 06/30/23 07:15 89 25 H 06/30/23 07:00 87 12 121/71 06/30/23 06:45 88 17 121/71 06/30/23 06:30 93 22 94/69 06/30/23 06:15 96 30 H 94/69 06/30/23 06:00 82 23 110/64 96 06/30/23 05:45 80 9 L 110/64 95 06/30/23 05:30 95 12 115/64 92 L 06/30/23 05:15 95 16 115/64 94 L 06/30/23 05:00 92 12 105/66 95 06/30/23 04:45 93 10 L 105/66 95 06/30/23 04:30 94 14 102/58 95 06/30/23 04:15 95 11 L 102/58 94 L 06/30/23 04:00 97.6 F 93 14 91/55 93 L 06/30/23 03:45 94 13 91/55 93 L 06/30/23 03:30 95 13 93/57 93 L 06/30/23 03:15 95 13 93/57 93 L 06/30/23 03:00 93 10 L 94/63 95 06/30/23 02:45 93 10 L 94/63 91 L 06/30/23 02:30 92 11 L 100/59 93 L 06/30/23 02:15 92 12 100/59 93 L 06/30/23 02:00 93 9 L 110/63 92 L 06/30/23 01:45 94 14 110/63 06/30/23 01:30 98 13 97/65 06/30/23 01:15 101 H 17 97/65 06/30/23 01:00 101 H 18 107/65 06/30/23 00:45 97.9 F 98 16 107/65 96 06/30/23 00:30 85 8 L 99/57 95 06/30/23 00:22 85 18 100/56 97 06/30/23 00:15 84 12 92/52 94 L 06/30/23 00:00 82 9 L 80/47 94 L 06/29/23 23:45 87 27 H 82/47 95 06/29/23 23:38 86 10 L 84/50 94 L 06/29/23 23:30 86 18 77/44 95 06/29/23 23:15 88 20 73/44 95 06/29/23 23:00 91 18 78/47 95 06/29/23 22:45 95 18 77/46 95 06/29/23 22:30 97 18 80/49 95 06/29/23 22:26 99.5 F 06/29/23 22:15 100 18 83/48 95 06/29/23 21:45 104 H 19 106/67 95 06/29/23 21:33 101.9 F H 105 H 106/67 96 06/29/23 20:53 100.3 F H 06/29/23 18:21 103.1 F H 116 H 20 131/71 95 Intake and Output 06/29/23 06/30/23 06/30/23 22:59 06:59 14:59 Intake Total 625 375 Output Total 200 125 Balance 425 250 Intake: IV 375 375 Sodium Chloride 0.9% 1, 375 375 000 ml @ 75 mls/hr IV . [id number] ONE Rx#:[id number] Intake, IV Titration 250 Amount Azithromycin 500 mg In 250 Sodium Chloride 0.9% 250 ml @ 250 mls/hr IVPB DAILY@0100 [facility] Rx#: [id number] Output: Urine 200 125 Other: Voiding Method Urinal # Voids 0 # Bowel Movements 1 Weight 65.771 kg 65.771 kg PHYSICAL EXAMINATION: GENERAL: The patient is alert and oriented x3, not in any acute distress. Well developed, well nourished. HEENT: Pupils are round and equally reacting to light. EOMI. No scleral icterus. No conjunctival pallor. Normocephalic, atraumatic. No pharyngeal erythema. No thyromegaly. CARDIOVASCULAR: S1 and S2 present. No murmurs, rubs, or gallops. PULMONARY: Chest is clear to auscultation, no wheezing or crackles. ABDOMEN: Soft, nontender, nondistended, normoactive bowel sounds. No palpable organomegaly. MUSCULOSKELETAL: No joint swelling or deformity. EXTREMITIES: No cyanosis, clubbing, or pedal edema. NEUROLOGICAL: Gross neurological examination did not reveal any focal deficits. SKIN: No rashes. Results CBC & Chem 7: 06/29/23 19:33 06/29/23 19:33 Labs: Abnormal Lab Results - Last 24 Hours (Table) 06/29/23 06/29/23 06/29/23 Range/Units 19:33 19:33 21:15 RBC 3.28 L (4.30-5.90) m/uL Hgb 11.2 L (13.0-17.5) gm/dL Hct 32.1 L (39.0-53.0) % Plt Count 85 L (150-450) k/uL INR 1.2 H (<1.2) Sodium 136 L (137-145) mmol/L BUN 26 H (9-20) mg/dL Creatinine 1.32 H (0.66-1.25) mg/dL Glucose 128 H (74-99) mg/dL POC Glucose (mg/dL) (70-110) mg/dL 06/30/23 Range/Units 00:41 RBC (4.30-5.90) m/uL Hgb (13.0-17.5) gm/dL Hct (39.0-53.0) % Plt Count (150-450) k/uL INR (<1.2) Sodium (137-145) mmol/L BUN (9-20) mg/dL Creatinine (0.66-1.25) mg/dL Glucose (74-99) mg/dL POC Glucose (mg/dL) 127 H (70-110) mg/dL Thrombosis Risk Factor Assmnt - Choose All That Apply Each Factor Represents 1 point: Medical pt on bed rest, Swollen legs (current) Each Risk Factor Represents 3 Points: Age 75 years or older Thrombosis Risk Factor Assessment Total Risk Factor Score: 5 Thrombosis Risk Factor Assessment Level: High Risk Assessment and Plan Assessment: 1. Acute cellulitis of the left lower extremity involving the leg and the medial thigh. - the patient is currently on IV Rocephin; we will monitor CBC, CRP and pro- calcitonin 2. Suspected Community acquired pneumonia and sepsis, chest x-ray on arrival showed a retrocardiac infiltrate concerning for pneumonia. There was pulmonary vascular congestion, cardiac silhouette was stable. Negative for influenza, RSV, COVID-19 3. History of heart transplant in 2010 at [facility], currently on anti-rejection meds including Prograf and prednisone; we'll continue with current therapy at this time 4. History of left lower extremity DVT 5. Acute on chronic kidney disease; creatinine 1.32; patient was hypotensive upon admission and received IV fluid resuscitation; we will continue to monitor renal function and electrolytes, strict ANTONELLA's and daily weights, avoid nephrotoxins and hypotension 6. Anemia of chronic disease; hemoglobin at baseline 7. Chronic Thrombocytopenia; seems to be at baseline; monitor CBC 8. Chronic diastolic congestive heart failure, stable, most recent echocardiogram from previous admission showed a preserved left ventricular ejection fraction of 55-60%, mild LVH, no valvular abnormalities. 9. Benign essential hypertension; Coreg 6.25 mg twice a day 10. Hyperlipidemia; Pravachol 20 mg by mouth daily at bedtime DVT prophylaxis; SCDs/systemic CODE STATUS; full code
[2023-06-30] MEDS: PRAVASTATIN SODIUM 20 MG TAB PO SCH (21:11)
--- NOTE | 2023-06-30 22:23 | P.CONS ---
History of Present Illness - Reason for Consult Consult date: 06/30/23 Cellulitis leg Requesting physician: Mika Campos - Chief Complaint Increasing swelling redness of the left leg x few days - History of Present Illness Patient is a 77-year-old male with a past medical history significant for heart failure in this patient who did have heart transplant in 2010 presenting to the hospital for evaluation of left leg pain swelling and fever patient mention he did have a significant swelling to the left lower extremity apparently has been going on for the last few days subsequently noticed to have increasing redness to the left leg with associated pain describing it to be sharp 5-6 out of 10 no radiation with the symptoms the patient was evaluated on arrival to the ER the patient did have a fever of 103.1 F patient was ta chycardic and mildly hypertensive requiring admission to the ICU patient did receive some fluid boluses and did not have a need for pressor patient did have a normal white count BUN and creatinine has been mildly elevated liver enzymes are normal urine was negative influenza RSV and COVID testing was negative patient did have a chest x-ray that was airspace opacities project over the spine on lateral view thought to be within the left lower lung correlate for pneumonia patient did have a venous Doppler study that was negative for DVT patient was started on Rocephin admitted to the ICU infectious disease was consulted for further management of antibiotic therapy Review of Systems Positive point and negatives has been mentioned in the HPI, complete review of systems was performed and all other systems are negative Past Medical History Past Medical History: Heart Failure History of Any Multi-Drug Resistant Organisms: None Reported Past Surgical History: Heart Catheterization Additional Past Surgical History / Comment(s): heart transplant 2010. Heart Catheterization 9-6-19 [facility] Past Anesthesia/Blood Transfusion Reactions: No Reported Reaction Past Psychological History: No Psychological Hx Reported Smoking Status: Never smoker Past Alcohol Use History: None Reported Past Drug Use History: None Reported - Past Family History Father Family Medical History: Congestive Heart Failure (CHF), Renal Disease Mother Family Medical History: Unable to Obtain Medications and Allergies Home Medications Medication Instructions Recorded Confirmed Type Ascorbic Acid [Vitamin C] 500 mg PO BID 06/23/19 06/29/23 History Aspirin EC [Ecotrin Low Dose] 81 mg PO DAILY 06/23/19 06/29/23 History Omeprazole 20 mg PO DAILY 06/23/19 06/29/23 History Pravastatin Sodium [Pravachol] 20 mg PO HS 06/23/19 06/29/23 History Tacrolimus [Prograf] 1 mg PO BID 06/23/19 06/29/23 History Vitamin E (Dl,Tocopheryl Acet) 400 unit PO BID 06/23/19 06/29/23 History [Vitamin E (400 Iu = 180 mg)] predniSONE 5 mg PO DAILY 06/23/19 06/29/23 History Apixaban [Eliquis] 5 mg PO BID 03/06/22 06/29/23 History carvediloL [Coreg] 6.25 mg PO BID 03/06/22 06/29/23 History Acetaminophen Tab [Tylenol] 500 mg PO Q6H PRN 03/24/23 06/29/23 History Calcium Carbonate/Vitamin D3 1 cap PO TID 03/24/23 06/29/23 History [Calcium 600-Vit D3 62.5 Mcg (2,500 Iu)] Multivitamin With Folic Acid 400 1 tab PO DAILY 03/24/23 06/29/23 History Mcg Tab Ferrous Sulfate [Iron (65 MG 325 mg PO DAILY 30 Days #30 tab 05/30/23 06/29/23 Rx Elemental)] Furosemide [Lasix] 20 mg PO DAILY 06/29/23 06/29/23 History Allergies Allergy/AdvReac Type Severity Reaction Status Date / Time Iodinated Contrast Media Allergy Unknown Verified 06/29/23 21:43 Physical Exam Vitals: Vital Signs Temp Pulse Resp BP Pulse Ox 06/30/23 10:00 92 24 126/63 94 L 06/30/23 09:00 94 22 123/65 94 L 06/30/23 08:45 90 24 123/65 06/30/23 08:30 88 15 06/30/23 08:15 98.3 F 89 10 L 131/68 06/30/23 08:00 89 24 130/69 06/30/23 07:45 89 20 06/30/23 07:30 89 21 114/65 06/30/23 07:15 89 25 H 06/30/23 07:00 87 12 121/71 06/30/23 06:45 88 17 121/71 06/30/23 06:30 93 22 94/69 06/30/23 06:15 96 30 H 94/69 06/30/23 06:00 82 23 110/64 96 06/30/23 05:45 80 9 L 110/64 95 06/30/23 05:30 95 12 115/64 92 L 06/30/23 05:15 95 16 115/64 94 L 06/30/23 05:00 92 12 105/66 95 06/30/23 04:45 93 10 L 105/66 95 06/30/23 04:30 94 14 102/58 95 06/30/23 04:15 95 11 L 102/58 94 L 06/30/23 04:00 97.6 F 93 14 91/55 93 L 06/30/23 03:45 94 13 91/55 93 L 06/30/23 03:30 95 13 93/57 93 L 06/30/23 03:15 95 13 93/57 93 L 06/30/23 03:00 93 10 L 94/63 95 06/30/23 02:45 93 10 L 94/63 91 L 06/30/23 02:30 92 11 L 100/59 93 L 06/30/23 02:15 92 12 100/59 93 L 06/30/23 02:00 93 9 L 110/63 92 L 06/30/23 01:45 94 14 110/63 06/30/23 01:30 98 13 97/65 06/30/23 01:15 101 H 17 97/65 06/30/23 01:00 101 H 18 107/65 06/30/23 00:45 97.9 F 98 16 107/65 96 06/30/23 00:30 85 8 L 99/57 95 06/30/23 00:22 85 18 100/56 97 06/30/23 00:15 84 12 92/52 94 L 06/30/23 00:00 82 9 L 80/47 94 L 06/29/23 23:45 87 27 H 82/47 95 06/29/23 23:38 86 10 L 84/50 94 L 06/29/23 23:30 86 18 77/44 95 06/29/23 23:15 88 20 73/44 95 06/29/23 23:00 91 18 78/47 95 06/29/23 22:45 95 18 77/46 95 06/29/23 22:30 97 18 80/49 95 06/29/23 22:26 99.5 F 06/29/23 22:15 100 18 83/48 95 06/29/23 21:45 104 H 19 106/67 95 06/29/23 21:33 101.9 F H 105 H 106/67 96 06/29/23 20:53 100.3 F H 06/29/23 18:21 103.1 F H 116 H 20 131/71 95 Intake and Output 06/29/23 06/30/23 06/30/23 22:59 06:59 14:59 Intake Total 625 225 Output Total 200 125 Balance 425 100 Intake: IV 375 225 Sodium Chloride 0.9% 1, 375 225 000 ml @ 75 mls/hr IV . [id number] ONE Rx#:[id number] Intake, IV Titration 250 Amount Azithromycin 500 mg In 250 Sodium Chloride 0.9% 250 ml @ 250 mls/hr IVPB DAILY@0100 [facility] Rx#: [id number] Output: Urine 200 125 Other: Voiding Method Urinal # Voids 0 # Bowel Movements 1 Weight 65.771 kg 65.771 kg GENERAL DESCRIPTION: Elderly male lying in bed, no distress. No tachypnea or accessory muscle of respiration use. HEENT: Shows Pallor , no scleral icterus. Oral mucous membrane is dry. No pharyngeal erythema or thrush NECK: Trachea central, no thyromegaly. LUNGS: Unlabored breathing. Clear to auscultation anteriorly. No wheeze or crackle. HEART: S1, S2, regular rate and rhythm. No loud murmur ABDOMEN: Soft, no tenderness , guarding or rigidity, no organomegaly EXTREMITIES: Left lower extremity with diffuse swelling redness slightly warm to touch and tender SKIN: No rash, no masses palpable. NEUROLOGICAL: The patient is awake, alert, oriented x3, mood and affect normal. Results CBC & Chem 7: 06/29/23 19:33 06/29/23 19:33 Labs: Abnormal Lab Results - Last 24 Hours (Table) 06/29/23 06/29/23 06/29/23 Range/Units 19:33 19:33 21:15 RBC 3.28 L (4.30-5.90) m/uL Hgb 11.2 L (13.0-17.5) gm/dL Hct 32.1 L (39.0-53.0) % Plt Count 85 L (150-450) k/uL INR 1.2 H (<1.2) Sodium 136 L (137-145) mmol/L BUN 26 H (9-20) mg/dL Creatinine 1.32 H (0.66-1.25) mg/dL Glucose 128 H (74-99) mg/dL POC Glucose (mg/dL) (70-110) mg/dL 06/30/23 Range/Units 00:41 RBC (4.30-5.90) m/uL Hgb (13.0-17.5) gm/dL Hct (39.0-53.0) % Plt Count (150-450) k/uL INR (<1.2) Sodium (137-145) mmol/L BUN (9-20) mg/dL Creatinine (0.66-1.25) mg/dL Glucose (74-99) mg/dL POC Glucose (mg/dL) 127 H (70-110) mg/dL Assessment and Plan (1) Sepsis Current Visit: Yes Status: Acute Code(s): A41.9 - SEPSIS, UNSPECIFIED ORGANISM SNOMED Code(s): 38490738 (2) Left leg cellulitis Current Visit: Yes Status: Acute Code(s): L03.116 - CELLULITIS OF LEFT LOWER LIMB SNOMED Code(s): 964916813 Plan: 1patient presented to hospital with sepsis in this patient with fever tachycardia hypotension source is acute left lower extremity cellulitis in this patient with diffuse swelling and redness likely streptococcal disease clinically doubt MRSA or gram-negative infection. 2patient with renal insufficiency high risk of nephrotoxicity from vancomycin. 3discontinue Rocephin. 4start the patient cefazolin 2 g every 8 hours. We will follow on clinical condition and cultures to further adjust medication if needed Thank you for this consultation we will follow the patient along with you Dictation was produced using [employer] dictation software. please excuse any grammatical, word or spelling errors. Time with Patient: Greater than 30
[2023-07-01 04:24] LABS: Basophils % (A) 0 %; Eosinophils % (A) 0 %; HCT 30.2 % (39.0-53.0); HGB 10.1 gm/dL (13.0-17.5); Lymphocytes # (A) 1.5 k/uL (1.0-4.8); Lymphocytes % (A) 17 %; MCH 33.4 pg (25.0-35.0); MCHC 33.4 g/dL (31.0-37.0); MCV 99.9 fL (80.0-100.0); Mean Platelet Volume 8.6; Monocytes # (A) 0.3 k/uL (0-1.0); Monocytes % (A) 3 %; Neutrophils # (A) 6.6 k/uL (1.3-7.7); Neutrophils % (A) 78 %; RBC 3.02 m/uL (4.30-5.90); RDW 13.7 % (11.5-15.5); WBC 8.5 k/uL (3.8-10.6)
[2023-07-01 04:28] LABS: Platelet Count 69 k/uL (150-450)
[2023-07-01 04:40] LABS: African American GFR (CKD) 62 (>60 ml/min/1.73 sqM); Anion Gap 6 mmol/L; Blood Urea Nitrogen 28 mg/dL (9-20); Calcium 8.2 mg/dL (8.4-10.2); Carbon Dioxide 21 mmol/L (22-30); Chloride 108 mmol/L (98-107); Glucose 112 mg/dL (74-99); Non-African American GFR(CKD) 54 (>60 ml/min/1.73 sqM); Potassium 3.7 mmol/L (3.5-5.1); Sodium 135 mmol/L (137-145)
[2023-07-01] MEDS: carvediloL 6.25 MG TAB PO SCH ×2 (06:07→16:51)
[2023-07-01] MEDS: ASPIRIN 81 MG PO SCH (08:01)
[2023-07-01] MEDS: VITAMIN E (DL,TOCOPHERYL ACET) 400 UNIT (180 MG) CAP PO SCH ×2 (08:01→20:03)
[2023-07-01] MEDS: FERROUS SULFATE 325 MG TAB PO SCH (08:01)
[2023-07-01] MEDS: TACROLIMUS 1 MG CAP PO SCH ×2 (08:01→20:04)
[2023-07-01] MEDS: predniSONE 5 MG TAB PO SCH (08:01)
[2023-07-01] MEDS: APIXABAN 5 MG TAB PO SCH ×2 (08:01→20:03)
[2023-07-01] MEDS: PANTOPRAZOLE 40 MG/10 ML VIAL IV SCH (08:01)
[2023-07-01] MEDS: ASCORBIC ACID 500 MG TAB PO SCH ×2 (08:01→20:03)
--- NOTE | 2023-07-01 12:03 | P.PN ---
Subjective Progress Note Date: 07/01/23 I am seeing this patient in new consultation today 06/30/23 in the emergency room after he presented with complaints of generalized weakness and confusion. Patient is a 77-year-old white male with past medical history significant for previous heart transplant in 2010, on immunosuppressants including Prograf, lipidemia, hypertension, and left lower extremity DVT. His Executive Assistant To President is a Dr. Segundo Chi at the [facility]. Patient did have a recent hospital admission last month for suspected cellulitis of the left leg and sepsis. He did have a DVT in this leg. He does live alone. While at home, the patient was feeling weak and confused. His neighbor came to check on him and called EMS. On arrival to emergency room, patient was found to be febrile with a T-max of 103F. He denies any significant shortness breath, cough, chest pain, hemoptysis. Denies any difficulty urinating. He did have one isolated episode of vomiting. Denies any abdominal pain, hematemesis, diarrhea, constipation. He's had reduced appetite. He does have swelling of his left lower extremity. This was noted on his previous admission. The leg is erythemic, warm, and swollen, but the patient states that it is actually smaller in size. Venous Doppler from last month was positive for DVT, repeat Doppler this admission was negative. There are bilateral chronic venous stasis changes. He denies any chest pain, heart palpitations, or orthopnea. He has lost a total of 10 pounds in the last 2-3 days. Does take Lasix at home. He has not been eating and drinking a whole lot lately. Patient is currently sitting up in bed, on room air, in no acute distress. His blood pressure is hypotensive, he has received 1 L normal saline bolus, and will be given another. Chest x-ray on arrival showed a left retrocardiac infiltrate concerning for pneumonia. CBC on arrival showed a WBC count of 9, hemoglobin 11.2, hematocrit 32.1, platelets 85,000. BMP on arrival shows sodium 136, potassium 4.3, chloride 102, serum bicarb 25, BUN 26, creatinine 1.32, glucose 128. Normal saline is infusing at 75 mL per hour. Lactic acid level was 1.1. Negative for influenza, RSV, COVID-19. Urinalysis not concerning for UTI. Patient was empirically started on a combination of Rocephin and azithromycin. Currently, the patient is afebrile. He is immunosuppressed. There is a component of sepsis. The patient will be admitted to the ICU for closer monitoring. On today's evaluation, the patient is transferred out of the intensive care unit. The patient is doing well. No specific complaints. Hemodynamically stable. The patient remains on the same antibiotic coverage. The enzymes at 28 with a creatinine 1.2. Sodium levels of 135. White cell cause of 8.4 with a hemoglobin of 10.1. Patient is currently on room air oxygen with a pulse ox of 94%. Afebrile. Patient is back on immunosuppression with a combination of Prograf and prednisone. The patient remains on IV sepsis. He remains on anticoagulation with Eliquis. Blood cultures are negative thus far. Objective - Vital Signs Vital signs: Vital Signs Temp 98.5 F 07/01/23 08:00 Pulse 86 07/01/23 08:00 Resp 16 07/01/23 08:00 BP 120/61 07/01/23 08:00 Pulse Ox 94 L 07/01/23 08:00 FiO2 Intake & Output 06/30/23 07/01/23 07/01/23 18:59 06:59 18:59 Intake Total 900 600 240 Output Total 475 400 Balance 425 200 240 Intake: IV 900 600 Sodium Chloride 0.9% 1, 900 600 000 ml @ 75 mls/hr IV . [id number] ONE Rx#:[id number] Oral 240 Output: Urine 475 Urine/Stool Mix 400 Other: Voiding Method Urinal Urinal # Voids 0 - Exam GENERAL EXAM: Alert, 77-year-old white male appearing stated age, comfortable in no apparent distress. HEAD: Normocephalic and atraumatic EYES: Normal reaction of pupils, equal size. NOSE: Clear with pink turbinates. THROAT: No erythema or exudates. NECK: No masses, no JVD. CHEST: No chest wall deformity. Sternal incisional scar LUNGS: Equal air entry with no crackles, wheeze, rhonchi or dullness. No conversational dyspnea or accessory muscle use.. CVS: S1 and S2 normal with no audible murmur, regular rhythm. No extra heart sounds ABDOMEN: Abdominal hernia, no hepatosplenomegaly, active bowel sounds, no guardi ng or rigidity. SPINE: No scoliosis or deformity SKIN: Bilateral chronic venous stasis changes. Left lower extremity is erythema, warm, and swollen. CENTRAL NERVOUS SYSTEM: No focal deficits, tone is normal in all 4 extremities. EXTREMITIES: no clubbing, or cyanosis. Peripheral pulses are intact. - Labs CBC & Chem 7: 07/01/23 03:46 07/01/23 03:46 Labs: Abnormal Lab Results - Last 24 Hours (Table) 07/01/23 07/01/23 Range/Units 03:46 03:46 RBC 3.02 L (4.30-5.90) m/uL Hgb 10.1 L (13.0-17.5) gm/dL Hct 30.2 L (39.0-53.0) % Plt Count 69 L (150-450) k/uL Sodium 135 L (137-145) mmol/L Chloride 108 H (98-107) mmol/L Carbon Dioxide 21 L (22-30) mmol/L BUN 28 H (9-20) mg/dL Creatinine 1.29 H (0.66-1.25) mg/dL Glucose 112 H (74-99) mg/dL Calcium 8.2 L (8.4-10.2) mg/dL Microbiology - Last 24 Hours (Table) 06/29/23 19:34 Blood Culture - Preliminary Blood 06/29/23 19:33 Blood Culture - Preliminary Blood Assessment and Plan Assessment: Acute cellulitis of the left lower extremity involving the leg and the medial thigh. There is quite erythematous and red and inflamed and the patient is currently on IV cefazolin. Hemodynamically stable. No hypertension. Adequ ately resuscitated. Suspected Community acquired pneumonia and sepsis, chest x-ray on arrival showed a retrocardiac infiltrate concerning for pneumonia. There was pulmonary vascular congestion, cardiac silhouette was stable. Negative for influenza, RSV, COVID-19 History of heart transplant in 2010 at [facility], currently on anti-rejection meds including Prograf and prednisone History of left lower extremity DVT Acute on chronic kidney disease, creatinine 1.32 Anemia of chronic disease Thrombocytopenia, chronic Chronic diastolic congestive heart failure, stable, most recent echocardiogram from previous admission showed a preserved left ventricular ejection fraction of 55-60%, mild LVH, no valvular abnormalities. Benign essential hypertension Hyperlipidemia Plan: Continue IV cefazolin Continue immunosuppression medication Continue IV fluids No issues with hemodynamics and no hypotension Cardiac Medications have been resumed Monitor left lower oximetry cellulitis. We'll continue to follow.
--- NOTE | 2023-07-01 12:09 | P.PN ---
Subjective Progress Note Date: 07/01/23 Principal diagnosis: Left leg cellulitis Patient is a 77-year-old male with a past medical history significant for heart failure in this patient who did have heart transplant in 2010 presenting to the hospital for evaluation of left leg pain swelling and fever , patient was noticed to be septic secondary to left leg cellulitis and requiring admission to the ICU subsequently stabilized has been transferred out of the ICU. Today's evaluation that is 07/01/2023, the patient did have low-grade fever 100.3F last night, patient denies any fever or any chills, the patient is breathing comfortably , the patient denies chest pain and no significant cough, the patient denies nausea and vomiting no abdominal pain and no diarrhea, patient is still complaining of pain to the left medial thigh area Objective - Vital Signs Vital signs: Vital Signs Temp 98.5 F 07/01/23 08:00 Pulse 86 07/01/23 08:00 Resp 16 07/01/23 08:00 BP 120/61 07/01/23 08:00 Pulse Ox 94 L 07/01/23 08:00 FiO2 Intake & Output 06/30/23 07/01/23 07/01/23 18:59 06:59 18:59 Intake Total 900 600 240 Output Total 475 400 Balance 425 200 240 Intake: IV 900 600 Sodium Chloride 0.9% 1, 900 600 000 ml @ 75 mls/hr IV . [id number] ONE Rx#:[id number] Oral 240 Output: Urine 475 Urine/Stool Mix 400 Other: Voiding Method Urinal Urinal # Voids 0 - Exam GENERAL DESCRIPTION: An elderly male lying in bed in no distress RESPIRATORY SYSTEM: Unlabored breathing , decreased breath sounds at bases HEART: S1 S2 regular rate and rhythm , ABDOMEN: Soft , no tenderness EXTREMITIES: Left leg redness slightly decreased to have swelling redness and warmth to the left medial thigh - Labs CBC & Chem 7: 07/01/23 03:46 07/01/23 03:46 Labs: Abnormal Lab Results - Last 24 Hours (Table) 07/01/23 07/01/23 Range/Units 03:46 03:46 RBC 3.02 L (4.30-5.90) m/uL Hgb 10.1 L (13.0-17.5) gm/dL Hct 30.2 L (39.0-53.0) % Plt Count 69 L (150-450) k/uL Sodium 135 L (137-145) mmol/L Chloride 108 H (98-107) mmol/L Carbon Dioxide 21 L (22-30) mmol/L BUN 28 H (9-20) mg/dL Creatinine 1.29 H (0.66-1.25) mg/dL Glucose 112 H (74-99) mg/dL Calcium 8.2 L (8.4-10.2) mg/dL Microbiology - Last 24 Hours (Table) 06/29/23 19:34 Blood Culture - Preliminary Blood 06/29/23 19:33 Blood Culture - Preliminary Blood Assessment and Plan (1) Sepsis Current Visit: Yes Status: Acute Code(s): A41.9 - SEPSIS, UNSPECIFIED ORGANISM SNOMED Code(s): 36667997 (2) Left leg cellulitis Current Visit: Yes Status: Acute Code(s): L03.116 - CELLULITIS OF LEFT LOWER LIMB SNOMED Code(s): 068063692 Plan: 1patient presented to hospital with sepsis in this patient with fever tachycardia hypotension source is acute left lower extremity cellulitis in this patient with diffuse swelling and redness likely streptococcal disease clinically doubt MRSA or gram-negative infection. 2patient with renal insufficiency high risk of nephrotoxicity from vancomycin. 3patient to continue with cefazolin 2 g every 8 hours and monitor area of the redness closely. Dictation was produced using [employer] dictation software. please excuse any grammatical, word or spelling errors. Time with Patient: Less than 30
--- NOTE | 2023-07-01 16:12 | P.PN ---
Subjective Progress Note Date: 07/01/23 77-year-old male, history of hypertension, hyperlipidemia, CHF who was sent in because he complained of left leg pain and had a fever. Patient denies any abdominal pain. Patient denies chest pain difficulty breathing shortest breath. Patient denies any recent fever chills or cough per patient denies headache patient denies numbness or weakness. Patient did state he feels as though he has an increased urination but there is no dysuria hematuria. Patient denies any back pain. Patient stated his main complaint is that his left leg is very painful posteriorly Venous Doppler from last month was positive for DVT, repeat Doppler this admission was negative. There are bilateral chronic venous stasis changes. Chest x-ray on arrival showed a left retrocardiac infiltrate concerning for pneumonia. CBC on arrival showed a WBC count of 9, hemoglobin 11.2, hematocrit 32.1, platelets 85,000. BMP on arrival shows sodium 136, potassium 4.3, chloride 102, serum bicarb 25, BUN 26, creatinine 1.32, glucose 128. Normal saline is infusing at 75 mL per hour. Lactic acid level was 1.1. Negative for influenza, RSV, COVID-19. Urinalysis not concerning for UTI. Patient was empi rically started on a combination of Rocephin and azithromycin. 07/01/2023 Patient is seen and evaluated on selective care unit; denies any specific complaints Vital signs are reviewed and stable with temperature of 98.5, pulse 86, respirations 16 and blood pressure 120/61, O2 saturation of 94% Lab review shows WBC 8.5, hemoglobin of 10.1 and platelet count of 69, sodium 1 35: Present treatment 7, BUN/creatinine of 28/1.29 and blood glucose of 112 -- Patient remains on IV cefazolin 2 g every 8 hours for left lower extremity severe cellulitis; vancomycin has been discontinued due to nephrotoxicity; renal function is improving and creatinine is down to 1.29 this morning Continue with home immunosuppression regimen; continue with IV fluids Objective - Vital Signs Vital signs: Vital Signs Temp 98.5 F 07/01/23 08:00 Pulse 86 07/01/23 08:00 Resp 16 07/01/23 08:00 BP 120/61 07/01/23 08:00 Pulse Ox 94 L 07/01/23 08:00 FiO2 Intake & Output 09/07/01/23 07/01/23 18:59 06:59 18:59 Intake Total 900 600 240 Output Total 475 400 Balance 425 200 240 Intake: IV 900 600 Sodium Chloride 0.9% 1, 900 600 000 ml @ 75 mls/hr IV . [id number] ONE Rx#:[id number] Oral 240 Output: Urine 475 Urine/Stool Mix 400 Other: Voiding Method Urinal Urinal # Voids 0 - Exam GENERAL: The patient is alert and oriented x3, not in any acute distress. Well d eveloped, well nourished. HEENT: Pupils are round and equally reacting to light. EOMI. No scleral icterus. No conjunctival pallor. Normocephalic, atraumatic. No pharyngeal erythema. No thyromegaly. CARDIOVASCULAR: S1 and S2 present. No murmurs, rubs, or gallops. PULMONARY: Chest is clear to auscultation, no wheezing or crackles. ABDOMEN: Soft, nontender, nondistended, normoactive bowel sounds. No palpable organomegaly. MUSCULOSKELETAL: No joint swelling or deformity. EXTREMITIES: No cyanosis, clubbing, or pedal edema. NEUROLOGICAL: Gross neurological examination did not reveal any focal deficits. SKIN: No rashes. - Labs CBC & Chem 7: 07/01/23 03:46 07/01/23 03:46 Labs: Abnormal Lab Results - Last 24 Hours (Table) 07/01/23 07/01/23 Range/Units 03:46 03:46 RBC 3.02 L (4.30-5.90) m/uL Hgb 10.1 L (13.0-17.5) gm/dL Hct 30.2 L (39.0-53.0) % Plt Count 69 L (150-450) k/uL Sodium 135 L (137-145) mmol/L Chloride 108 H (98-107) mmol/L Carbon Dioxide 21 L (22-30) mmol/L BUN 28 H (9-20) mg/dL Creatinine 1.29 H (0.66-1.25) mg/dL Glucose 112 H (74-99) mg/dL Calcium 8.2 L (8.4-10.2) mg/dL Microbiology - Last 24 Hours (Table) 06/29/23 19:34 Blood Culture - Preliminary Blood 06/29/23 19:33 Blood Culture - Preliminary Blood Assessment and Plan Assessment: 1. Acute cellulitis of the left lower extremity involving the leg and the medial thigh. - the patient is currently on IV Rocephin; we will monitor CBC, CRP and pro- calcitonin 2. Suspected Community acquired pneumonia and sepsis, chest x-ray on arrival showed a retrocardiac infiltrate concerning for pneumonia. There was pulmonary vascular congestion, cardiac silhouette was stable. Negative for influenza, RSV, COVID-19 3. History of heart transplant in 2010 at [facility], currently on anti-rejection meds including Prograf and prednisone; we'll continue with current therapy at this time 4. History of left lower extremity DVT 5. Acute on chronic kidney disease; creatinine 1.32; patient was hypotensive upon admission and received IV fluid resuscitation; we will continue to monitor renal function and electrolytes, strict ANTONELLA's and daily weights, avoid nephrotox ins and hypotension 6. Anemia of chronic disease; hemoglobin at baseline 7. Chronic Thrombocytopenia; seems to be at baseline; monitor CBC 8. Chronic diastolic congestive heart failure, stable, most recent echocardiogram from previous admission showed a preserved left ventricular ejection fraction of 55-60%, mild LVH, no valvular abnormalities. 9. Benign essential hypertension; Coreg 6.25 mg twice a day 10. Hyperlipidemia; Pravachol 20 mg by mouth daily at bedtime DVT prophylaxis; SCDs/systemic CODE STATUS; full code
[2023-07-01] MEDS: PRAVASTATIN SODIUM 20 MG TAB PO SCH (20:03)
[2023-07-02] MEDS: carvediloL 6.25 MG TAB PO SCH ×2 (06:21→17:03)
[2023-07-02] MEDS: VITAMIN E (DL,TOCOPHERYL ACET) 400 UNIT (180 MG) CAP PO SCH ×2 (07:31→20:13)
[2023-07-02] MEDS: ASCORBIC ACID 500 MG TAB PO SCH ×2 (07:31→20:13)
[2023-07-02] MEDS: ASPIRIN 81 MG PO SCH (07:31)
[2023-07-02] MEDS: predniSONE 5 MG TAB PO SCH (07:31)
[2023-07-02] MEDS: PANTOPRAZOLE 40 MG/10 ML VIAL IV SCH (07:31)
[2023-07-02] MEDS: TACROLIMUS 1 MG CAP PO SCH ×2 (07:31→20:13)
[2023-07-02] MEDS: FERROUS SULFATE 325 MG TAB PO SCH (07:31)
[2023-07-02] MEDS: APIXABAN 5 MG TAB PO SCH ×2 (07:31→20:13)
[2023-07-02 08:28] LABS: African American GFR (CKD) 81 (>60 ml/min/1.73 sqM); Anion Gap 6 mmol/L; Blood Urea Nitrogen 23 mg/dL (9-20); Calcium 8.6 mg/dL (8.4-10.2); Carbon Dioxide 22 mmol/L (22-30); Chloride 111 mmol/L (98-107); Glucose 127 mg/dL (74-99); Non-African American GFR(CKD) 70 (>60 ml/min/1.73 sqM); Potassium 3.8 mmol/L (3.5-5.1); Sodium 139 mmol/L (137-145)
[2023-07-02 08:29] LABS: Basophils % (A) 0 %; Eosinophils # (A) 0.1 k/uL (0-0.7); Eosinophils % (A) 2 %; HCT 32.4 % (39.0-53.0); HGB 10.8 gm/dL (13.0-17.5); Lymphocytes # (A) 1.2 k/uL (1.0-4.8); Lymphocytes % (A) 25 %; MCH 33.4 pg (25.0-35.0); MCHC 33.5 g/dL (31.0-37.0); MCV 99.9 fL (80.0-100.0); Mean Platelet Volume 8.4; Monocytes # (A) 0.2 k/uL (0-1.0); Monocytes % (A) 4 %; Neutrophils # (A) 3.4 k/uL (1.3-7.7); Neutrophils % (A) 68 %; RBC 3.24 m/uL (4.30-5.90); RDW 13.4 % (11.5-15.5)
[2023-07-02 08:31] LABS: Platelet Count 89 k/uL (150-450)
--- NOTE | 2023-07-02 10:54 | P.PN ---
Subjective Progress Note Date: 07/02/23 Principal diagnosis: Left leg cellulitis Patient is a 77-year-old male with a past medical history significant for heart failure in this patient who did have heart transplant in 2010 presenting to the hospital for evaluation of left leg pain swelling and fever , patient was noticed to be septic secondary to left leg cellulitis and requiring admission to the ICU subsequently stabilized has been transferred out of the ICU. Today's evaluation that is 07/02/2023, the patient remains to be afebrile, the patient is breathing comfortably , the patient denies chest pain , cough , the patient denies nausea or vomiting , didnot have abdominal pain and no diarrhea has been reported, the patient left lower extremity pain and swelling has decreased in intensity. Patient did have a white count of 5.0 creatinine is 1.04 Objective - Vital Signs Vital signs: Vital Signs Temp 98.1 F 07/02/23 08:00 Pulse 85 07/02/23 08:00 Resp 16 07/02/23 08:00 BP 124/60 07/02/23 08:00 Pulse Ox 96 07/02/23 08:00 FiO2 Intake & Output 07/01/23 07/02/23 07/02/23 18:59 06:59 18:59 Intake Total 1080 Output Total 275 Balance 805 Intake: Oral 1080 Output: Urine 275 Other: Voiding Method Urinal Urinal Urinal # Voids 1 # Bowel Movements 1 - Exam GENERAL DESCRIPTION: An elderly male lying in bed in no distress RESPIRATORY SYSTEM: Unlabored breathing , decreased breath sounds at bases HEART: S1 S2 regular rate and rhythm , ABDOMEN: Soft , no tenderness EXTREMITIES: Left leg redness slightly decreased to have swelling redness and warmth to the left medial thigh also decreased in intensity - Labs CBC & Chem 7: 07/02/23 07:33 07/02/23 07:33 Labs: Abnormal Lab Results - Last 24 Hours (Table) 07/02/23 07/02/23 Range/Units 07:33 07:33 RBC 3.24 L (4.30-5.90) m/uL Hgb 10.8 L (13.0-17.5) gm/dL Hct 32.4 L (39.0-53.0) % Plt Count 89 L (150-450) k/uL Chloride 111 H (98-107) mmol/L BUN 23 H (9-20) mg/dL Glucose 127 H (74-99) mg/dL Microbiology - Last 24 Hours (Table) 06/29/23 19:34 Blood Culture - Preliminary Blood 06/29/23 19:33 Blood Culture - Preliminary Blood Assessment and Plan (1) Sepsis Current Visit: Yes Status: Acute Code(s): A41.9 - SEPSIS, UNSPECIFIED ORGANISM SNOMED Code(s): 45570791 (2) Left leg cellulitis Current Visit: Yes Status: Acute Code(s): L03.116 - CELLULITIS OF LEFT LOWER LIMB SNOMED Code(s): 439891752 Plan: 1patient presented to hospital with sepsis in this patient with fever tachycardia hypotension source is acute left lower extremity cellulitis in this patient with diffuse swelling and redness likely streptococcal disease clinically doubt MRSA or gram-negative infection. 2patient with renal insufficiency high risk of nephrotoxicity from vancomycin. Patient did have improvement in his creatinine 3patient has shown clinical improvement and will continue with cefazolin 2 g every 8 hours for another 24 hour before transitioning to oral antibiotics Dictation was produced using [employer] dictation software. please excuse any grammatical, word or spelling errors. Time with Patient: Less than 30
--- NOTE | 2023-07-02 11:47 | P.PN ---
Subjective Progress Note Date: 07/02/23 I am seeing this patient in new consultation today 06/30/23 in the emergency room after he presented with complaints of generalized weakness and confusion. Patient is a 77-year-old white male with past medical history significant for previous heart transplant in 2010, on immunosuppressants including Prograf, lipidemia, hypertension, and left lower extremity DVT. His Rubberizing Mechanic is a Dr. Segundo Chi at the [facility]. Patient did have a recent hospital admission last month for suspected cellulitis of the left leg and sepsis. He did have a DVT in this leg. He does live alone. While at home, the patient was feeling weak and confused. His neighbor came to check on him and called EMS. On arrival to emergency room, patient was found to be febrile with a T-max of 103F. He denies any significant shortness breath, cough, chest pain, hemoptysis. Denies any difficulty urinating. He did have one isolated episode of vomiting. Denies any abdominal pain, hematemesis, diarrhea, constipation. He's had reduced appetite. He does have swelling of his left lower extremity. This was noted on his previous admission. The leg is erythemic, warm, and swollen, but the patient states that it is actually smaller in size. Venous Doppler from last month was positive for DVT, repeat Doppler this admission was negative. There are bilateral chronic venous stasis changes. He denies any chest pain, heart palpitations, or orthopnea. He has lost a total of 10 pounds in the last 2-3 days. Does take Lasix at home. He has not been eating and drinking a whole lot lately. Patient is currently sitting up in bed, on room air, in no acute distress. His blood pressure is hypotensive, he has received 1 L normal saline bolus, and will be given another. Chest x-ray on arrival showed a left retrocardiac infiltrate concerning for pneumonia. CBC on arrival showed a WBC count of 9, hemoglobin 11.2, hematocrit 32.1, platelets 85,000. BMP on arrival shows sodium 136, potassium 4.3, chloride 102, serum bicarb 25, BUN 26, creatinine 1.32, glucose 128. Normal saline is infusing at 75 mL per hour. Lactic acid level was 1.1. Negative for influenza, RSV, COVID-19. Urinalysis not concerning for UTI. Patient was empirically started on a combination of Rocephin and azithromycin. Currently, the patient is afebrile. He is immunosuppressed. There is a component of sepsis. The patient will be admitted to the ICU for closer monitoring. On today's evaluation, the patient is transferred out of the intensive care unit. The patient is doing well. No specific complaints. Hemodynamically stable. The patient remains on the same antibiotic coverage. The enzymes at 28 with a creatinine 1.2. Sodium levels of 135. White cell cause of 8.4 with a hemoglobin of 10.1. Patient is currently on room air oxygen with a pulse ox of 94%. Afebrile. Patient is back on immunosuppression with a combination of Prograf and prednisone. The patient remains on IV sepsis. He remains on anticoagulation with Eliquis. Blood cultures are negative thus far. On today's evaluation of 07/02/2023, the patient is doing well. The patient on 2 L of oxygen by nasal cannula. Patient is being treated for selective left lower extremity. No fever. No chills. White cycles of 4.3, he was not 0.2, BUN is at 42 with a creatinine of 2.8 and a sodium level is at 138. No altered mentation. No respiratory difficulties. Cellulitis of the left leg is improving Objective - Vital Signs Vital signs: Vital Signs Temp 98.1 F 07/02/23 08:00 Pulse 85 07/02/23 08:00 Resp 16 07/02/23 08:00 BP 124/60 07/02/23 08:00 Pulse Ox 96 07/02/23 08:00 FiO2 Intake & Output 07/01/23 07/02/23 07/02/23 18:59 06:59 18:59 Intake Total 1080 Output Total 275 Balance 805 Intake: Oral 1080 Output: Urine 275 Other: Voiding Method Urinal Urinal Urinal # Voids 1 # Bowel Movements 1 - Exam GENERAL EXAM: Alert, 77-year-old white male appearing stated age, comfortable in no apparent distress. HEAD: Normocephalic and atraumatic EYES: Normal reaction of pupils, equal size. NOSE: Clear with pink turbinates. THROAT: No erythema or exudates. NECK: No masses, no JVD. CHEST: No chest wall deformity. Sternal incisional scar LUNGS: Equal air entry with no crackles, wheeze, rhonchi or dullness. No conversational dyspnea or accessory muscle use.. CVS: S1 and S2 normal with no audible murmur, regular rhythm. No extra heart sounds ABDOMEN: Abdominal hernia, no hepatosplenomegaly, active bowel sounds, no guarding or rigidity. SPINE: No scoliosis or deformity SKIN: Bilateral chronic venous stasis changes. Left lower extremity is erythema, warm, and swollen. CENTRAL NERVOUS SYSTEM: No focal deficits, tone is normal in all 4 extremities. EXTREMITIES: no clubbing, or cyanosis. Peripheral pulses are intact. - Labs CBC & Chem 7: 07/02/23 07:33 07/02/23 07:33 Labs: Abnormal Lab Results - Last 24 Hours (Table) 07/02/23 07/02/23 Range/Units 07:33 07:33 RBC 3.24 L (4.30-5.90) m/uL Hgb 10.8 L (13.0-17.5) gm/dL Hct 32.4 L (39.0-53.0) % Plt Count 89 L (150-450) k/uL Chloride 111 H (98-107) mmol/L BUN 23 H (9-20) mg/dL Glucose 127 H (74-99) mg/dL Microbiology - Last 24 Hours (Table) 06/29/23 19:34 Blood Culture - Preliminary Blood 06/29/23 19:33 Blood Culture - Preliminary Blood Assessment and Plan Assessment: Acute cellulitis of the left lower extremity involving the leg and the medial thigh. There is quite erythematous and red and inflamed and the patient is currently on IV cefazolin. Hemodynamically stable. No hypertension. Adequately resuscitated. Suspected Community acquired pneumonia and sepsis, chest x-ray on arrival showed a retrocardiac infiltrate concerning for pneumonia. There was pulmonary vascular congestion, cardiac silhouette was stable. Negative for influenza, RSV, COVID-19 History of heart transplant in 2010 at [facility], currently on anti-rejection meds including Prograf and prednisone History of left lower extremity DVT Acute on chronic kidney disease, creatinine 1.32 Anemia of chronic disease Thrombocytopenia, chronic Chronic diastolic congestive heart failure, stable, most recent echocardiogram from previous admission showed a preserved left ventricular ejection fraction of 55-60%, mild LVH, no valvular abnormalities. Benign essential hypertension Hyperlipidemia Plan: Continue IV cefazolin Continue immunosuppression medication Continue IV fluids No issues with hemodynamics and no hypotension Cardiac Medications have been resumed Monitor left lower oximetry cellulitis. We'll continue to follow.
--- NOTE | 2023-07-02 16:25 | P.PN ---
Subjective Progress Note Date: 07/02/23 77-year-old male, history of hypertension, hyperlipidemia, CHF who was sent in because he complained of left leg pain and had a fever. Patient denies any abdominal pain. Patient denies chest pain difficulty breathing shortest breath. Patient denies any recent fever chills or cough per patient denies headache patient denies numbness or weakness. Patient did state he feels as though he has an increased urination but there is no dysuria hematuria. Patient denies any back pain. Patient stated his main complaint is that his left leg is very painful posteriorly Venous Doppler from last month was positive for DVT, repeat Doppler this admission was negative. There are bilateral chronic venous stasis changes. Chest x-ray on arrival showed a left retrocardiac infiltrate concerning for pneumonia. CBC on arrival showed a WBC count of 9, hemoglobin 11.2, hematocrit 32.1, platelets 85,000. BMP on arrival shows sodium 136, potassium 4.3, chloride 102, serum bicarb 25, BUN 26, creatinine 1.32, glucose 128. Normal saline is infusing at 75 mL per hour. Lactic acid level was 1.1. Negative for influenza, RSV, COVID-19. Urinalysis not concerning for UTI. Patient was empi rically started on a combination of Rocephin and azithromycin. 07/01/2023 Patient is seen and evaluated on selective care unit; denies any specific complaints Vital signs are reviewed and stable with temperature of 98.5, pulse 86, respirations 16 and blood pressure 120/61, O2 saturation of 94% Lab review shows WBC 8.5, hemoglobin of 10.1 and platelet count of 69, sodium 1 35: Present treatment 7, BUN/creatinine of 28/1.29 and blood glucose of 112 -- Patient remains on IV cefazolin 2 g every 8 hours for left lower extremity severe cellulitis; vancomycin has been discontinued due to nephrotoxicity; renal function is improving and creatinine is down to 1.29 this morning Continue with home immunosuppression regimen; continue with IV fluids 07/02/2023 -the patient remains to be afebrile, the patient is breathing comfortably , the patient denies chest pain , cough , the patient denies nausea or vomiting , didnot have abdominal pain and no diarrhea has been reported, the patient left lower extremity pain and swelling has decreased in intensity. Patient did have a white count of 5.0 creatinine is 1.04 patient presented to hospital with sepsis in this patient with fever tachycardia hypotension source is acute left lower extremity cellulitis in this patient with diffuse swelling and redness likely streptococcal disease clinically doubt MRSA or gram-negative infection. patient with renal insufficiency high risk of nephrotoxicity from vancomycin. Patient did have improvement in his creatinine patient has shown clinical improvement and will continue with cefazolin 2 g every 8 hours for another 24 hour before transitioning to oral antibiotics Objective - Vital Signs Vital signs: Vital Signs Temp 98.4 F 07/02/23 11:24 Pulse 82 07/02/23 11:24 Resp 18 07/02/23 11:24 BP 122/66 07/02/23 11:24 Pulse Ox 98 07/02/23 11:24 FiO2 Intake & Output 07/01/23 07/02/23 07/02/23 18:59 06:59 18:59 Intake Total 1080 Output Total 275 Balance 805 Intake: Oral 1080 Output: Urine 275 Other: Voiding Method Urinal Urinal Urinal # Voids 1 # Bowel Movements 1 - Exam GENERAL: The patient is alert and oriented x3, not in any acute distress. Well developed, well nourished. HEENT: Pupils are round and equally reacting to light. EOMI. No scleral icterus. No conjunctival pallor. Normocephalic, atraumatic. No pharyngeal erythema. No thyromegaly. CARDIOVASCULAR: S1 and S2 present. No murmurs, rubs, or gallops. PULMONARY: Chest is clear to auscultation, no wheezing or crackles. ABDOMEN: Soft, nontender, nondistended, normoactive bowel sounds. No palpable organomegaly. MUSCULOSKELETAL: No joint swelling or deformity. EXTREMITIES: No cyanosis, clubbing, or pedal edema. NEUROLOGICAL: Gross neurological examination did not reveal any focal deficits. SKIN: No rashes. - Labs CBC & Chem 7: 07/02/23 07:33 07/02/23 07:33 Labs: Abnormal Lab Results - Last 24 Hours (Table) 07/02/23 07/02/23 Range/Units 07:33 07:33 RBC 3.24 L (4.30-5.90) m/uL Hgb 10.8 L (13.0-17.5) gm/dL Hct 32.4 L (39.0-53.0) % Plt Count 89 L (150-450) k/uL Chloride 111 H (98-107) mmol/L BUN 23 H (9-20) mg/dL Glucose 127 H (74-99) mg/dL Microbiology - Last 24 Hours (Table) 06/29/23 19:34 Blood Culture - Preliminary Blood 06/29/23 19:33 Blood Culture - Preliminary Blood Assessment and Plan Assessment: 1. Acute cellulitis of the left lower extremity involving the leg and the medial thigh. - the patient is currently on IV Rocephin; we will monitor CBC, CRP and pro- calcitonin 2. Suspected Community acquired pneumonia and sepsis, chest x-ray on arrival showed a retrocardiac infiltrate concerning for pneumonia. There was pulmonary vascular congestion, cardiac silhouette was stable. Negative for influenza, RSV, COVID-19 3. History of heart transplant in 2010 at [facility], currently on anti-rejection meds including Prograf and prednisone; we'll continue with current therapy at this time 4. History of left lower extremity DVT 5. Acute on chronic kidney disease; creatinine 1.32; patient was hypotensive upon admission and received IV fluid resuscitation; we will continue to monitor renal function and electrolytes, strict ANTONELLA's and daily weights, avoid nephrotoxins and hypotension 6. Anemia of chronic disease; hemoglobin at baseline 7. Chronic Thrombocytopenia; seems to be at baseline; monitor CBC 8. Chronic diastolic congestive heart failure, stable, most recent echocardiogram from previous admission showed a preserved left ventricular ejection fraction of 55-60%, mild LVH, no valvular abnormalities. 9. Benign essential hypertension; Coreg 6.25 mg twice a day 10. Hyperlipidemia; Pravachol 20 mg by mouth daily at bedtime DVT prophylaxis; SCDs/systemic CODE STATUS; full code
[2023-07-02] MEDS: PRAVASTATIN SODIUM 20 MG TAB PO SCH (20:13)
[2023-07-03] MEDS: carvediloL 6.25 MG TAB PO SCH (06:59)
[2023-07-03] MEDS: APIXABAN 5 MG TAB PO SCH (09:01)
[2023-07-03] MEDS: ASCORBIC ACID 500 MG TAB PO SCH (09:01)
[2023-07-03] MEDS: ASPIRIN 81 MG PO SCH (09:01)
[2023-07-03] MEDS: FERROUS SULFATE 325 MG TAB PO SCH (09:03)
[2023-07-03] MEDS: PANTOPRAZOLE 40 MG/10 ML VIAL IV SCH (09:03)
[2023-07-03] MEDS: VITAMIN E (DL,TOCOPHERYL ACET) 400 UNIT (180 MG) CAP PO SCH (09:04)
[2023-07-03] MEDS: predniSONE 5 MG TAB PO SCH (09:04)
[2023-07-03] MEDS: TACROLIMUS 1 MG CAP PO SCH (09:04)
[2023-07-03 09:15] LABS: Basophils % (A) 0 %; Eosinophils # (A) 0.1 k/uL (0-0.7); Eosinophils % (A) 2 %; HCT 29.3 % (39.0-53.0); HGB 9.7 gm/dL (13.0-17.5); Lymphocytes # (A) 1.7 k/uL (1.0-4.8); Lymphocytes % (A) 35 %; MCH 32.9 pg (25.0-35.0); MCV 99.6 fL (80.0-100.0); Mean Platelet Volume 8.4; Monocytes # (A) 0.2 k/uL (0-1.0); Monocytes % (A) 4 %; Neutrophils # (A) 2.7 k/uL (1.3-7.7); Neutrophils % (A) 57 %; RBC 2.95 m/uL (4.30-5.90); RDW 13.8 % (11.5-15.5); WBC 4.7 k/uL (3.8-10.6)
[2023-07-03 09:23] LABS: Platelet Count 81 k/uL (150-450)
[2023-07-03 09:37] LABS: African American GFR (CKD) >90 (>60 ml/min/1.73 sqM); Anion Gap 7 mmol/L; Blood Urea Nitrogen 21 mg/dL (9-20); Calcium 8.5 mg/dL (8.4-10.2); Carbon Dioxide 20 mmol/L (22-30); Chloride 112 mmol/L (98-107); Glucose 139 mg/dL (74-99); Non-African American GFR(CKD) 79 (>60 ml/min/1.73 sqM); Sodium 139 mmol/L (137-145)
[2023-07-03 11:48] VITALS: BP 142/74; PULSE 86; RESP 17; TEMP 98.2
--- NOTE | 2023-07-03 13:20 | P.PN ---
Subjective Progress Note Date: 07/03/23 Principal diagnosis: Acute left lower extremity cellulitis, possible left lower lobe community acquired pneumonia. I am seeing this patient in new consultation today 06/30/23 in the emergency room after he presented with complaints of generalized weakness and confusion. Patient is a 77-year-old white male with past medical history significant for previous heart transplant in 2010, on immunosuppressants including Prograf, lipidemia, hypertension, and left lower extremity DVT. His Feather Duster Winder is a Dr. Segundo Chi at the [facility]. Patient did have a recent hospital admission last month for suspected cellulitis of the left leg and sepsis. He did have a DVT in this leg. He does live alone. While at home, the patient was feeling weak and confused. His neighbor came to check on him and called EMS. On arrival to emergency room, patient was found to be febrile with a T-max of 103F. He denies any significant shortness breath, cough, chest pain, hemoptysi s. Denies any difficulty urinating. He did have one isolated episode of vomiting. Denies any abdominal pain, hematemesis, diarrhea, constipation. He's had reduced appetite. He does have swelling of his left lower extremity. This was noted on his previous admission. The leg is erythemic, warm, and swollen, but the patient states that it is actually smaller in size. Venous Doppler from last month was positive for DVT, repeat Doppler this admission was negative. There are bilateral chronic venous stasis changes. He denies any chest pain, heart palpitations, or orthopnea. He has lost a total of 10 pounds in the last 2-3 days. Does take Lasix at home. He has not been eating and drinking a whole lot lately. Patient is currently sitting up in bed, on room air, in no acute distress. His blood pressure is hypotensive, he has received 1 L normal saline bolus, and will be given another. Chest x-ray on arrival showed a left retrocardiac infiltrate concerning for pneumonia. CBC on arrival showed a WBC count of 9, hemoglobin 11.2, hematocrit 32.1, platelets 85,000. BMP on arrival shows sodium 136, potassium 4.3, chloride 102, serum bicarb 25, BUN 26, creatinine 1.32, glucose 128. Normal saline is infusing at 75 mL per hour. Lactic acid level was 1.1. Negative for influenza, RSV, COVID-19. Urinalysis not concerning for UTI. Patient was empirically started on a combination of Ro cephin and azithromycin. Currently, the patient is afebrile. He is immunosuppressed. There is a component of sepsis. The patient will be admitted to the ICU for closer monitoring. On today's evaluation, the patient is transferred out of the intensive care unit. The patient is doing well. No specific complaints. Hemodynamically stable. The patient remains on the same antibiotic coverage. The enzymes at 28 with a creatinine 1.2. Sodium levels of 135. White cell cause of 8.4 with a hemoglobin of 10.1. Patient is currently on room air oxygen with a pulse ox of 94%. Afebrile. Patient is back on immunosuppression with a combination of Prograf and prednisone. The patient remains on IV sepsis. He remains on anticoagulation with Eliquis. Blood cultures are negative thus far. On today's evaluation of 07/02/2023, the patient is doing well. The patient on 2 L of oxygen by nasal cannula. Patient is being treated for selective left lower extremity. No fever. No chills. White cycles of 4.3, he was not 0.2, BUN is at 42 with a creatinine of 2.8 and a sodium level is at 138. No altered mentation. No respiratory difficulties. Cellulitis of the left leg is improving Reevaluated today on 07/03/2023, patient is being treated for cellulitis and pneumonia/presumptive pneumonia although this is only seen on the chest x-ray but the patient does not have clear-cut symptoms/clinical symptoms of pneumonia. Patient is feeling better, denies any pulmonary symptoms his cellulitis according to him is getting better. And the redness seems to be improving. WBC count is 4.7 hemoglobin is 9.7 and electrolytes are normal renal profile is normal patient is receiving cefazolin for his cellulitis and that seems to be working well for his cellulitis Objective - Vital Signs Vital signs: Vital Signs Temp 98.2 F 07/03/23 11:46 Pulse 86 07/03/23 11:46 Resp 17 07/03/23 11:46 BP 142/74 07/03/23 11:46 Pulse Ox 97 07/03/23 11:46 FiO2 Intake & Output 07/02/23 07/03/23 07/03/23 18:59 06:59 18:59 Intake Total 780 118 Balance 780 118 Intake: Oral 780 118 Other: Voiding Method Urinal Toilet # Voids 3 2 - Exam Physical Exam: Revealed 77-year-old white male in no distress, on room air with O2 saturation 97% Head: Atraumatic, normocephalic. HEENT:[Neck is supple.] [No neck masses.] [No thyromegaly.] [No JVD.] Chest: [Clear throughout, no crackles, no rhonchi, no wheezes.] Cardiac Exam: [Normal S1 and S2, no S3 gallop, no murmur.] Abdomen: [Soft, nontender, no megaly, no rebound, no guarding, normal bowel sounds.] Extremities:Bilateral chronic venous stasis changes. Left lower extremity is erythema, warm, and swollen. Neurological Exam: [No focal neurologic deficit.] Alert and oriented 3. Psychiatric: Normal mood affect and normal mental status examination. Musculoskeletal: No deformities and no limitation in range of motion - Labs CBC & Chem 7: 07/03/23 08:25 07/03/23 08:25 Labs: Abnormal Lab Results - Last 24 Hours (Table) 07/03/23 07/03/23 Range/Units 08:25 08:25 RBC 2.95 L (4.30-5.90) m/uL Hgb 9.7 L (13.0-17.5) gm/dL Hct 29.3 L (39.0-53.0) % Plt Count 81 L (150-450) k/uL Chloride 112 H (98-107) mmol/L Carbon Dioxide 20 L (22-30) mmol/L BUN 21 H (9-20) mg/dL Glucose 139 H (74-99) mg/dL Microbiology - Last 24 Hours (Table) 06/29/23 19:34 Blood Culture - Preliminary Blood 06/29/23 19:33 Blood Culture - Preliminary Blood Assessment and Plan Assessment: Impression: Acute cellulitis, on cefazolin Questionable left lower lobe atelectasis/pneumonia/community-acquired pneumonia although clinically the patient has no symptoms whatsoever to suggest pneumonia. No active pulmonary symptoms. Patient was initially given Rocephin and Zithromax now he is on cefazolin History of heart transplant in 2010 History of left lower extremity DVT Chronic venous stasis changes in left lower extremity Acute kidney injury, resolved creatinine is normal today compared to 1.32 on admission Benign essential hypertension Chronic thrombocytopenia Anemia of chronic disease Recommendation: Continue present course of antibiotics to cefazolin Continue immunosuppressive medications for his cardiac transplant history Consider discharge planning if cleared by infectious disease Follow-up on outpatient basis We'll continue to follow for now. Time with Patient: Less than 30
--- NOTE | 2023-07-03 17:42 | P.PN ---
Subjective Progress Note Date: 07/03/23 Principal diagnosis: Left leg cellulitis Patient is a 77-year-old male with a past medical history significant for heart failure in this patient who did have heart transplant in 2010 presenting to the hospital for evaluation of left leg pain swelling and fever , patient was noticed to be septic secondary to left leg cellulitis and requiring admission to the ICU subsequently stabilized has been transferred out of the ICU. Today's evaluation that is 07/03/2023, the patient continues to be afebrile, the patient is breathing comfortably , the patient denies chest pain or cough , the patient denies having any nausea or vomiting ,, no abdominal pain or diarrhea , the patient left lower extremity pain and swelling has decreased in intensity, patient feeling better wants to go home. Patient did have a white count of 4.7 creatinine is 0.94, blood culture for negative Objective - Vital Signs Vital signs: Vital Signs Temp 98.2 F 07/03/23 11:46 Pulse 86 07/03/23 11:46 Resp 17 07/03/23 11:46 BP 142/74 07/03/23 11:46 Pulse Ox 97 07/03/23 11:46 FiO2 Intake & Output 07/02/23 07/03/23 07/03/23 18:59 06:59 18:59 Intake Total 780 118 Balance 780 118 Intake: Oral 780 118 Other: Voiding Method Urinal Toilet # Voids 3 2 - Exam GENERAL DESCRIPTION: An elderly male lying in bed in no distress RESPIRATORY SYSTEM: Unlabored breathing , decreased breath sounds at bases HEART: S1 S2 regular rate and rhythm , ABDOMEN: Soft , no tenderness EXTREMITIES: Left leg redness has decreased in intensity - Labs CBC & Chem 7: 07/03/23 08:25 07/03/23 08:25 Labs: Abnormal Lab Results - Last 24 Hours (Table) 07/03/23 07/03/23 Range/Units 08:25 08:25 RBC 2.95 L (4.30-5.90) m/uL Hgb 9.7 L (13.0-17.5) gm/dL Hct 29.3 L (39.0-53.0) % Plt Count 81 L (150-450) k/uL Chloride 112 H (98-107) mmol/L Carbon Dioxide 20 L (22-30) mmol/L BUN 21 H (9-20) mg/dL Glucose 139 H (74-99) mg/dL Microbiology - Last 24 Hours (Table) 06/29/23 19:34 Blood Culture - Preliminary Blood 06/29/23 19:33 Blood Culture - Preliminary Blood Assessment and Plan (1) Sepsis Status: Acute Code(s): A41.9 - SEPSIS, UNSPECIFIED ORGANISM SNOMED Code(s): 75904937 (2) Left leg cellulitis Status: Acute Code(s): L03.116 - CELLULITIS OF LEFT LOWER LIMB SNOMED Code(s): 688150211 Plan: 1patient presented to hospital with sepsis in this patient with fever tachycardia hypotension source is acute left lower extremity cellulitis in this patient with diffuse swelling and redness likely streptococcal disease clinically doubt MRSA or gram-negative infection. 2patient with renal insufficiency high risk of nephrotoxicity from vancomycin. Patient did have improvement in his creatinine 3patient has shown clinical improvement and will finish therapy with oral Keflex 500 mg by mouth every 8 hours for 7-10 days discussed with the [employer] for admitting team working on discharge Dictation was produced using [employer] dictation software. please excuse any grammatical, word or spelling errors. Time with Patient: Less than 30
== END 2023-07-03 15:40 | disposition home or self-care (01) | DRG 871 ==
LOC: EC 18:02 → 4SSUR 21:02 → 2SICU 23:51 → 3SCARD 07-01 03:59
PROVIDERS: ADMIT Hospitalist; ATTEND Hospitalist
DX: A40.8 Other streptococcal sepsis (principal); E05.91 Thyrotoxicosis, unspecified with thyrotoxic crisis or storm; J18.9 Pneumonia, unspecified organism; I13.0 Hypertensive heart and chronic kidney disease with heart failure and stage 1 through stage 4 chronic kidney disease, or unspecified chronic kidney disease; I50.32 Chronic diastolic (congestive) heart failure; Z20.822 Contact with and (suspected) exposure to COVID-19; N17.9 Acute kidney failure, unspecified; L03.116 Cellulitis of left lower limb; D84.9 Immunodeficiency, unspecified; N18.9 Chronic kidney disease, unspecified; E78.5 Hyperlipidemia, unspecified; D63.8 Anemia in other chronic diseases classified elsewhere; D69.6 Thrombocytopenia, unspecified; I45.10 Unspecified right bundle-branch block; Z79.01 Long term (current) use of anticoagulants; Z79.60 Long term (current) use of unspecified immunomodulators and immunosuppressants; Z79.82 Long term (current) use of aspirin; Z79.899 Other long term (current) drug therapy; Z82.49 Family history of ischemic heart disease and other diseases of the circulatory system; Z86.718 Personal history of other venous thrombosis and embolism; Z91.041 Radiographic dye allergy status
CPT/HCPCS: 36415; 71046; 80048; 80053; 81003; 83605; 85025; 85610; 85730; 87040; 87636; 93005; 96361; 96365; 96375; 99285